=== PATIENT | female | born 1980 | race Caucasian/White ===

== ENCOUNTER 2017-10-01 | Emergency (ER) | payer SELFPAY ==
--- NOTE | 2017-10-01 13:07 | EDPHYS ---
Physician Documentation [facility] Name: Meghann Bob Age: 37 yrs Sex: Female : 1980 Arrival Date: 10/01/2017 Time: 11:22 Bed 26 Private MD: ED Physician Kvng Schwartz HPI: 10/01 15:56 This 37 yrs old Female presents to ER via Ambulatory with complaints of Sore snw Throat, Fever. 15:56 This 37 yrs old Female presents to ER via Ambulatory with complaints of Sore snw Throat, Fever. 15:56 The patient presents with sore throat. The patient describes throat pain as raw. Onset: snw The symptoms/episode began/occurred last night. Severity of symptoms: At their worst the symptoms were moderate. Modifying factors: The symptoms are alleviated by nothing. Associated signs and symptoms: Pertinent positives: cough, Sore throat. It is unknown whether or not the patient has had similar symptoms in the past. The patient has not recently seen a physician. 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 - Social history:: Smoking status: Patient/guardian denies using tobacco. ROS: 15:55 Constitutional: Negative for fever, chills, and weight loss, Eyes: Negative for injury, snw pain, redness, and discharge, Neck: Negative for injury, pain, and swelling, Cardiovascular: Negative for chest pain, palpitations, and edema, Respiratory: Negative for shortness of breath, wheezing, and pleuritic chest pain, + cough Abdomen/GI: Negative for abdominal pain, nausea, vomiting, diarrhea, and constipation, Back: Negative for injury and pain, : Negative for injury, bleeding, discharge, and swelling, MS/Extremity: Negative for injury and deformity, Skin: Negative for injury, rash, and discoloration, Neuro: Negative for headache, weakness, numbness, tingling, and seizure. 15:55 ENT: Positive for sore throat. Exam: 15:54 Constitutional: This is a well developed, well nourished patient who is awake, alert, snw and in no acute distress. Head/Face: Normocephalic, atraumatic. Eyes: Pupils equal round and reactive to light, extra-ocular motions intact. Lids and lashes normal. Conjunctiva and sclera are non-icteric and not injected. Cornea within normal limits. Periorbital areas with no swelling, redness, or edema. ENT: Nares patent. No nasal discharge, no septal abnormalities noted. Tympanic membranes are normal and external auditory canals are clear. Oropharynx with no redness, swelling, or masses, exudates, or evidence of obstruction, uvula midline. Mucous membranes moist. Neck: Trachea midline, no thyromegaly or masses palpated, and no cervical lymphadenopathy. Supple, full range of motion without nuchal rigidity, or vertebral point tenderness. No Meningismus. Chest/axilla: Normal chest wall appearance and motion. Nontender with no deformity. No lesions are appreciated. Cardiovascular: Regular rate and rhythm with a normal S1 and S2. No gallops, murmurs, or rubs. Normal PMI, no JVD. No pulse deficits. Respiratory: Lungs have equal breath sounds bilaterally, clear to auscultation and percussion. No rales, rhonchi or wheezes noted. No increased work of breathing, no retractions or nasal flaring. Occasional cough Abdomen/GI: Soft, non-tender, with normal bowel sounds. No distension or tympany. No guarding or rebound. No evidence of tenderness throughout. Back: No spinal tenderness. No costovertebral tenderness. Full range of motion. Skin: Warm, dry with normal turgor. Normal color with no rashes, no lesions, and no evidence of cellulitis. MS/ Extremity: Pulses equal, no cyanosis. Neurovascular intact. Full, normal range of motion. Neuro: Awake and alert, GCS 15, oriented to person, place, time, and situation. Cranial nerves II-XII grossly intact. Motor strength 5/5 in all extremities. Sensory grossly intact. Cerebellar exam normal. Normal gait. Vital Signs: 11:32 BP 130 / 92; Pulse 90; Resp 18; Temp 98.4(TE); Pulse Ox 100% on R/A; Weight 90.72 kg; hj Height 5 ft. 4 in. (162.56 cm); Pain 5/10; 13:10 BP 130 / 88; Pulse 87; Resp 17 S; Temp 98.4; Pulse Ox 99% on R/A; Pain 5/10; sg 11:32 Body Mass Index 34.33 (90.72 kg, 162.56 cm) MDM: 12:39 Patient medically screened. snw 15:58 Data reviewed: vital signs, nurses notes. Data interpreted: Pulse oximetry: on room air snw is 99 %. Interpretation: normal. Counseling: I had a detailed discussion with the patient and/or guardian regarding: the historical points, exam findings, and any diagnostic results supporting the discharge/admit diagnosis, the presence of at least one elevated blood pressure reading (>120/80) during this emergency department visit, to return to the emergency department if symptoms worsen or persist or if there are any questions or concerns that arise at home. Special discussion: I have referred the patient to see his PCP for further evaluation of high blood pressure. Based on the history and exam findings, there is no indication for further emergent testing or inpatient evaluation. I discussed with the patient/guardian the need to see the primary care provider for further evaluation of the symptoms. Administered Medications: No medications were administered Disposition: 10/01/17 13:06 Discharged to Home. Impression: Acute upper respiratory infection, unspecified. - Condition is Stable. - Discharge Instructions: Upper Respiratory Infection, Adult. - Prescriptions for Zyrtec 10 mg Oral Tablet - take 1 tablet by ORAL route once daily As needed; 20 tablet. - Medication Reconciliation Form, Thank You Letter, Antibiotic Education, Prescription Opioid Use form. - Follow up: Private Physician; When: 1 week; Reason: Recheck today's complaints, Continuance of care, Re-evaluation by your physician. Follow up: Emergency Department; When: As needed; Reason: Worsening of condition. Addendum: 10/04/2017 06:10 Co-signature as Attending Physician, Kvng Schwartz MD Available for consultation at p s1 all times. . Signatures: Bret Gaines RN Annelise Osborne, MONICO-C PERIODONTAL ASSISTANT-Csnw Bridget Pop RN RICKEY Vega Francois RN RN hj Singer, Phillip, MD MD ps1
--- NOTE | 2017-10-01 13:07 | ER ---
Nurse's Notes [facility] Name: Meghann Bob Age: 37 yrs Sex: Female : 1980 Arrival Date: 10/01/2017 Time: 11:22 Bed 26 Private MD: Diagnosis: Acute upper respiratory infection, unspecified Presentation: 10/01 11:30 Presenting complaint: Patient states: it started yesterday with sore throat and i hj started fever of 99.5 last night and today, i had a bad cough; and hard to swallow;. Transition of care: patient was not received from another setting of care. Onset of symptoms was October 01, 2017. Care prior to arrival: None. 11:30 Method Of Arrival: Ambulatory 11:30 Acuity: ANGELO 4 hj Triage Assessment: 11:31 General: Appears in no apparent distress. uncomfortable, Behavior is calm, cooperative, hj appropriate for age. Pain: Complains of pain in throat. EENT: Reports pain when swallowing. 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 - Social history:: Smoking status: Patient/guardian denies using tobacco. Screenin:20 Abuse screen: Denies threats or abuse. Denies injuries from another. Nutritional sg screening: No deficits noted. Tuberculosis screening: No symptoms or risk factors identified. Never had TB. Fall Risk None identified. No fall in past 12 months (0 pts). Assessment: 11:31 Respiratory: Airway is patent Respiratory effort is even, unlabored, Respiratory hj pattern is regular, symmetrical, Breath sounds are clear. EENT: Throat. 13:10 General: Appears in no apparent distress. comfortable, well groomed, well developed, sg well nourished, Behavior is calm, cooperative, appropriate for age. Pain: Complains of pain in sore throat. Neuro: Level of Consciousness is awake, alert, obeys commands, Oriented to person, place, time, Speech is normal, Facial symmetry appears normal. Cardiovascular: Heart tones S1 S2 present Capillary refill is brisk in bilateral fingers Patient's skin is warm and dry. Chest pain is denied. GI: No signs and/or symptoms were reported involving the gastrointestinal system. : No signs and/or symptoms were reported regarding the genitourinary system. Derm: Skin is pink, warm \T\ dry. Musculoskeletal: No signs and/or symptoms reported regarding the musculoskeletal system. Vital Signs: 11:32 BP 130 / 92; Pulse 90; Resp 18; Temp 98.4(TE); Pulse Ox 100% on R/A; Weight 90.72 kg; hj Height 5 ft. 4 in. (162.56 cm); Pain 5/10; 13:10 BP 130 / 88; Pulse 87; Resp 17 S; Temp 98.4; Pulse Ox 99% on R/A; Pain 5/10; sg 11:32 Body Mass Index 34.33 (90.72 kg, 162.56 cm) hj ED Course: 11:22 Patient arrived in ED. rg4 11:31 Triage completed. hj 11:31 Arm band placed on right wrist. hj 12:35 Annelise Wilson F[facility]-C [facility]. snw 12:35 Kvng Schwartz MD is Attending Physician. snw 13:20 Patient has correct armband on for positive identification. Bed in low position. Call sg light in reach. Pulse ox on. NIBP on. 13:20 No provider procedures requiring assistance completed. Patient did not have IV access sg during this emergency room visit. Administered Medications: No medications were administered Outcome: 13:06 Discharge ordered by . snw 13:10 Discharged to home ambulatory, with family. sg 13:10 Condition: good 13:10 Discharge instructions given to patient, Instructed on discharge instructions, follow up and referral plans. medication usage, safety practices, Demonstrated understanding of instructions, follow-up care, medications, Prescriptions given X 1. 13:20 Patient left the ED. iw Signatures: Bret Gaines RN RN Annelise Wilson FNP-C FNP-Bridget Rodriguez RN RN Vega Francois RN RN hj Garcia, Rubi rg4 Corrections: (The following items were deleted from the chart) 11:33 11:32 Pulse 90bpm; Resp 18bpm; Pulse Ox 100% RA; Temp 98.4F Temporal; 90.72 kg; Height hj 5 ft. 4 in.; BMI: 34.3; Pain 5/10; hj
== END 2017-10-01 13:20 | disposition home or self-care (01) ==
CPT/HCPCS: 99283

== ENCOUNTER 2017-10-09 14:38 | Emergency (ER) | payer SELFPAY ==
--- NOTE | 2017-10-09 15:38 | ER ---
Nurse's Notes [facility] Name: Meghann Bob Age: 37 yrs Sex: Female : 1980 Arrival Date: 10/09/2017 Time: 14:40 Bed DIS7 Private MD: Diagnosis: Acute upper respiratory infection, unspecified;Nasal congestion Presentation: 10/09 15:08 Presenting complaint: Patient states: Nasal congestion and decreased appetite since Friday. Transition of care: patient was not received from another setting of care. Onset of symptoms was October 04, 2017. Initial Sepsis Screen: Does the patient meet any 2 criteria? No. Patient's initial sepsis screen is negative. Does the patient have a suspected source of infection? No. Patient's initial sepsis screen is negative. Care prior to arrival: None. 15:08 Method Of Arrival: Ambulatory 15:08 Acuity: ANGELO 4 Triage Assessment: 15:09 General: Appears in no apparent distress. comfortable, Behavior is calm, cooperative, aj appropriate for age. Pain: Denies pain. EENT: Reports nasal congestion nasal discharge. Neuro: Level of Consciousness is awake, alert, obeys commands, Oriented to person, place, time, situation. Respiratory: Airway is patent Respiratory effort is even, unlabored, Respiratory pattern is regular, symmetrical, Breath sounds are clear. GI: Reports anorexia. Derm: Skin is intact, is healthy with good turgor, Skin is pink, warm \T\ dry. normal. 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 - Social history:: Smoking status: Patient/guardian denies using tobacco. Screenin:50 Abuse screen: Denies threats or abuse. Denies injuries from another. Nutritional sg screening: No deficits noted. Tuberculosis screening: No symptoms or risk factors identified. Never had TB. Fall Risk None identified. Assessment: 15:50 General: Appears in no apparent distress. comfortable, well groomed, well developed, sg well nourished, Behavior is calm, cooperative, appropriate for age. Pain: Complains of pain in chest, pain worsens with deep breathing Pain does not radiate. Quality of pain is described as dull. Neuro: Level of Consciousness is awake, alert, obeys commands, Oriented to person, place, time, situation, Sales Center Associate are equal bilaterally Moves all extremities. Full function Gait is steady, Speech is normal, Facial symmetry appears normal. Cardiovascular: Heart tones S1 S2 present Capillary refill is brisk in bilateral fingers Patient's skin is warm and dry. Chest pain is denied. Respiratory: Airway is patent Respiratory effort is even, unlabored, Respiratory pattern is regular, symmetrical, Breath sounds are clear. Respiratory: Reports pain with respiration chest congestion, non-productive cough. GI: No signs and/or symptoms were reported involving the gastrointestinal system. : No signs and/or symptoms were reported regarding the genitourinary system. EENT: Reports nasal discharge that is watery. Derm: Skin is pink, warm \T\ dry. Musculoskeletal: No signs and/or symptoms reported regarding the musculoskeletal system. Vital Signs: 15:09 BP 134 / 97; Pulse 95; Resp 17; Temp 97.8; Pulse Ox 97% on R/A; Weight 90.72 kg; Height aj 5 ft. 4 in. (162.56 cm); Pain 0/10; 16:00 BP 132 / 88; Pulse 90; Resp 17; Pulse Ox 97% on R/A; Pain 0/10; sg 15:09 Body Mass Index 34.33 (90.72 kg, 162.56 cm) ED Course: 14:40 Patient arrived in ED. as 15:09 Triage completed. aj 15:09 Arm band placed on right wrist. Patient placed in waiting room, Patient notified of wait time. 15:31 Annelise Wilson FNP-C [facility]. snw 15:31 Brandon Chen MD is Attending Physician. snw 15:38 Bret Gaines, RICKEY is Primary Nurse. sg 15:50 Patient has correct armband on for positive identification. Bed in low position. Call sg light in reach. Side rails up X2. Pulse ox on. NIBP on. Head of bed elevated. 15:50 No provider procedures requiring assistance completed. Patient did not have IV access sg during this emergency room visit. Administered Medications: No medications were administered Outcome: 15:38 Discharge ordered by . snw 16:03 Patient left the ED. ss 16:03 Discharged to home ambulatory, with family. 16:03 Condition: good 16:03 Discharge instructions given to patient, Instructed on discharge instructions, follow up and referral plans. medication usage, safety practices, Demonstrated understanding of instructions, follow-up care, medications, Prescriptions given X 2. Signatures: Bret Gaines RN Meliza Melvin RN RN aj Therrien, Shelly, SUPERVISOR EXTRUSION-C SUPERVISOR EXTRUSION-Abril Flores Shelby, RN RN
--- NOTE | 2017-10-09 15:38 | EDPHYS ---
Physician Documentation [facility] Name: Meghann Bob Age: 37 yrs Sex: Female : 1980 Arrival Date: 10/09/2017 Time: 14:40 Bed DIS7 Private MD: ED Physician Brandon Chen HPI: 10/09 17:27 This 37 yrs old Female presents to ER via Ambulatory with complaints of snw Congestion. 17:27 The patient or guardian reports nasal congestion. Onset: The symptoms/episode snw began/occurred acutely, gradually, 2 week(s) ago, and became persistent. Associated signs and symptoms: Pertinent positives: nausea. It is unknown whether or not the patient has had similar symptoms in the past. The patient has been recently seen at the [facility] Emergency Department, last week, for similar complaints. 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 - Social history:: Smoking status: Patient/guardian denies using tobacco. ROS: 17:24 Constitutional: Negative for fever, chills, and weight loss, Eyes: Negative for injury, snw pain, redness, and discharge, Neck: Negative for injury, pain, and swelling, Cardiovascular: Negative for chest pain, palpitations, and edema, Respiratory: Negative for shortness of breath, cough, wheezing, and pleuritic chest pain, Back: Negative for injury and pain, : Negative for injury, bleeding, discharge, and swelling, MS/Extremity: Negative for injury and deformity, Skin: Negative for injury, rash, and discoloration, Neuro: Negative for headache, weakness, numbness, tingling, and seizure. 17:24 Abdomen/GI: Positive for nausea and vomiting. Exam: 17:24 Constitutional: This is a well developed, well nourished patient who is awake, alert, snw and in no acute distress. Head/Face: Normocephalic, atraumatic. Eyes: Pupils equal round and reactive to light, extra-ocular motions intact. Lids and lashes normal. Conjunctiva and sclera are non-icteric and not injected. Cornea within normal limits. Periorbital areas with no swelling, redness, or edema. Neck: Trachea midline, no thyromegaly or masses palpated, and no cervical lymphadenopathy. Supple, full range of motion without nuchal rigidity, or vertebral point tenderness. No Meningismus. Chest/axilla: Normal chest wall appearance and motion. Nontender with no deformity. No lesions are appreciated. Cardiovascular: Regular rate and rhythm with a normal S1 and S2. No gallops, murmurs, or rubs. Normal PMI, no JVD. No pulse deficits. Respiratory: Lungs have equal breath sounds bilaterally, clear to auscultation and percussion. No rales, rhonchi or wheezes noted. No increased work of breathing, no retractions or nasal flaring. Abdomen/GI: Soft, non-tender, with normal bowel sounds. No distension or tympany. No guarding or rebound. No evidence of tenderness throughout. Back: No spinal tenderness. No costovertebral tenderness. Full range of motion. Skin: Warm, dry with normal turgor. Normal color with no rashes, no lesions, and no evidence of cellulitis. MS/ Extremity: Pulses equal, no cyanosis. Neurovascular intact. Full, normal range of motion. Neuro: Awake and alert, GCS 15, oriented to person, place, time, and situation. Cranial nerves II-XII grossly intact. Motor strength 5/5 in all extremities. Sensory grossly intact. Cerebellar exam normal. Normal gait. Psych: Awake, alert, with orientation to person, place and time. Behavior, mood, and affect are within normal limits. 17:24 ENT: External ear(s): are unremarkable, TM's: are normal, Nose: Nasal mucosa: edematous, Mouth: is normal, Dental exam: normal. Vital Signs: 15:09 BP 134 / 97; Pulse 95; Resp 17; Temp 97.8; Pulse Ox 97% on R/A; Weight 90.72 kg; Height aj 5 ft. 4 in. (162.56 cm); Pain 0/10; 16:00 BP 132 / 88; Pulse 90; Resp 17; Pulse Ox 97% on R/A; Pain 0/10; sg 15:09 Body Mass Index 34.33 (90.72 kg, 162.56 cm) aj MDM: 15:32 Patient medically screened. snw 17:27 Data reviewed: vital signs, nurses notes. Data interpreted: Pulse oximetry: on room air snw is 97 %. Interpretation: normal. Counseling: I had a detailed discussion with the patient and/or guardian regarding: the historical points, exam findings, and any diagnostic results supporting the discharge/admit diagnosis, the presence of at least one elevated blood pressure reading (>120/80) during this emergency department visit, the need for outpatient follow up, to return to the emergency department if symptoms worsen or persist or if there are any questions or concerns that arise at home. Special discussion: Based on the history and exam findings, there is no indication for further emergent testing or inpatient evaluation. I discussed with the patient/guardian the need to see the primary care provider for further evaluation of the symptoms. Administered Medications: No medications were administered Disposition: 10/09/17 15:38 Discharged to Home. Impression: Acute upper respiratory infection, unspecified, Nasal congestion. - Condition is Stable. - Discharge Instructions: Hay Fever, Hypertension, Upper Respiratory Infection, Adult, Cool Mist Vaporizers. - Prescriptions for Flonase Allergy Relief 50 mcg/actuation Nasal spray,suspension - inhale 1 spray by INTRANASAL route once daily; 1 Cartridge. Zyrtec 10 mg Oral Tablet - take 1 tablet by ORAL route once daily As needed; 20 tablet. - Medication Reconciliation Form, Thank You Letter, Antibiotic Education, Prescription Opioid Use, Work release form form. - Follow up: Private Physician; When: 1 - 2 days; Reason: Recheck today's complaints, Continuance of care, Re-evaluation by your physician. Follow up: Emergency Department; When: As needed; Reason: Worsening of condition. Addendum: 10/13/2017 12:38 Co-signature as Attending Physician, Brandon Chen MD. g s Signatures: Meliza Cade, RN RN Annelise Keith, WAISTLINE JOINER-C WAISTLINE JOINER-[place] Lorene Trammell RN RN ss Starr, Gregory, MD MD
[2017-10-09 16:11] VITALS: BP 134/97; TEMP 97.8; O2SAT 97
== END 2017-10-09 16:03 | disposition home or self-care (01) ==
LOC: ER 14:38
DX: J06.9 Acute upper respiratory infection, unspecified (principal); Z88.0 Allergy status to penicillin
CPT/HCPCS: 99283

== ENCOUNTER 2018-02-09 02:47 | Emergency (ER) | payer SELFPAY ==
[2018-02-09] MEDS ORDERED: MAGNE/ALUM HYDROXD 30 ML UCUP ONE (03:19)
[2018-02-09] MEDS ORDERED: LIDOCAINE VISCOUS 2% SOLN 15 ML UDC ONE (03:19)
[2018-02-09] MEDS ORDERED: SIMETHICONE 80 MG TAB ONE (03:23)
[2018-02-09 04:15] LABS: Absolute Lymphocytes (CBC) 2.6 K/uL (0.7-4.9); Absolute Monocytes 0.7 K/uL (0.1-1.3); Absolute Neutrophil 6.3 K/uL (1.8-8.0); Basophils % 0.2 % (0-1.3); Eosinophils % 1.9 % (0-4.4); Lymphocytes % 26.8 % (15.3-44.8); MCH 27.1 pg (27.0-35.0); MCV 82.8 fL (80-100); MPV 7.3 fL (7.6-11.3); RBC Red Blood Cell Count 4.71 M/uL (3.86-4.86)
[2018-02-09 04:38] LABS: Urine Bacteria <20 /HPF (<20); Urine Culture Reflex Order NOT NEEDED; Urine RBC NONE SEEN /HPF (NONE SEEN)
[2018-02-09 04:39] LABS: Urine Amorphous Sediment 4+ /HPF (NONE SEEN)
[2018-02-09 04:40] LABS: Albumin 3.7 g/dL (3.4-5.0); Bilirubin Direct 0.1 mg/dL (0-0.2); Bilirubin Total 0.2 mg/dL (0.2-1.0); Potassium 3.8 mmol/L (3.5-5.1); Protein, Total 7.4 g/dL (6.4-8.2)
[2018-02-09 05:21] LABS: Urine Blood NEGATIVE (NEG); Urine Glucose NEGATIVE (NEG); Urine Protein NEGATIVE (NEG)
--- NOTE | 2018-02-09 05:21 | EDPHYS ---
Physician Documentation [facility] Name: Meghann Bob Age: 37 yrs Sex: Female : 1980 Arrival Date: 02/09/2018 Time: 02:48 Bed 5 Private MD: ED Physician Soto Hutchinson HPI: 02/09 03:39 This 37 yrs old Female presents to ER via Ambulatory with complaints of rn States she has gas. 03:40 The patient presents with abdominal pain in the epigastric area. Onset: The rn symptoms/episode began/occurred 7 hour(s) ago. The symptoms do not radiate. Associated signs and symptoms: Pertinent negatives: nausea and vomiting, diarrhea, dysuria, fever, shortness of breath, vomiting, vomiting blood. The symptoms are described as burning, crampy. Modifying factors: The symptoms are alleviated by nothing, the symptoms are aggravated by nothing. Severity of pain: At its worst the pain was moderate in the emergency department the pain has improved. The patient has experienced similar episodes in the past. Reports symptoms in past when eating spicy foods, reports gets "gas pains", usually improved with maalox or tums, not today, present for 7 hours, similar to previous episodes, has been burping without alleviation of pain.. LEAD COOK: 03:02 LMP 02/06/2018 ao Historical: - Allergies: 03:02 PENICILLINS; ao - Home Meds: 03:02 None [Active]; ao - PMHx: 03:02 None; ao - PSHx: 03:02 Tubal ligation; ao - Immunization history:: Adult Immunizations up to date. - Social history:: Smoking status: Patient/guardian denies using tobacco, Patient/guardian denies using alcohol, street drugs. - Ebola Screening: : Patient negative for fever greater than or equal to 101.5 degrees Fahrenheit, and additional compatible Ebola Virus Disease symptoms Patient denies exposure to infectious person Patient denies travel to an Ebola-affected area in the 21 days before illness onset. - Family history:: not pertinent. - Hospitalizations: : No recent hospitalization is reported. ROS: 03:40 Constitutional: Negative for fever, chills, and weight loss, Eyes: Negative for injury, rn pain, redness, and discharge, Cardiovascular: Negative for chest pain, palpitations, and edema, Respiratory: Negative for shortness of breath, cough, wheezing, and pleuritic chest pain, Abdomen/GI: + abd pain, neg for nausea/vomiting/diarrhea Back: Negative for injury and pain, MS/Extremity: Negative for injury and deformity, Skin: Negative for injury, rash, and discoloration, Neuro: Negative for headache, weakness, numbness, tingling, and seizure. Exam: 03:40 Constitutional: This is a well developed, well nourished patient who is awake, alert, rn and in no acute distress. Eyes: Pupils equal round and reactive to light, extra-ocular motions intact. ENT: MMM Abdomen/GI: soft, + epigastric tenderness, mild, no RUQ tenderness, neg benson, no rebound Back: No spinal tenderness. No costovertebral tenderness. Full range of motion. Skin: Warm, dry with normal turgor. Normal color with no rashes, no lesions, and no evidence of cellulitis. MS/ Extremity: Pulses equal, no cyanosis. Neurovascular intact. Full, normal range of motion. Equal circumference. Neuro: Awake and alert, GCS 15, oriented to person, place, time, and situation. Cranial nerves II-XII grossly intact. Motor strength 5/5 in all extremities. Sensory grossly intact. Cerebellar exam normal. Normal gait. Vital Signs: 03:02 BP 144 / 92; Pulse 67; Resp 18; Temp 99.0(O); Pulse Ox 98% on R/A; Weight 89.81 kg (R); ao Height 5 ft. 4 in. (162.56 cm) (R); Pain 10/10; 04:29 BP 145 / 71; Pulse 56; Resp 16; Pulse Ox 99% ; ao 05:29 BP 125 / 84; Pulse 62; Resp 16; Pulse Ox 99% on R/A; ao 03:02 Body Mass Index 33.99 (89.81 kg, 162.56 cm) ao MDM: 02:54 Patient medically screened. rn 05:03 Differential diagnosis: cholecystitis, Cholelithiasis, gastritis, gastroesophageal rn reflux disease, non-specific abd pain, pancreatitis, Peptic Ulcer Disease. Data reviewed: vital signs, nurses notes, lab test result(s), and as a result, I will discharge patient. Counseling: I had a detailed discussion with the patient and/or guardian regarding: the historical points, exam findings, and any diagnostic results supporting the discharge/admit diagnosis, lab results, the need for outpatient follow up, to return to the emergency department if symptoms worsen or persist or if there are any questions or concerns that arise at home. 05:20 Response to treatment: the patient's symptoms have mildly improved after treatment, and rn as a result, I will discharge patient. Special discussion: Based on the patient's Hx, exam, and Dx evaluation, there is no indication for emergent surgery or inpatient Tx. It is understood by the patient/guardian that if the Sx's persist or worsen they need to return immediately for re-evaluation. I discussed with the patient/guardian in detail that at this point there is no indication for admission to the hospital. It is understood, however, that if the symptoms persist or worsen the patient needs to return immediately for re-evaluation. 02/09 03:40 Order name: Basic Metabolic Panel; Complete Time: 05:02 rn 02/09 03:40 Order name: CBC with Diff; Complete Time: 05:02 rn 02/09 03:40 Order name: Hepatic Function; Complete Time: 05:02 rn 02/09 03:40 Order name: Lipase; Complete Time: 05:02 rn 02/09 03:40 Order name: Urine Microscopic Only; Complete Time: 05:02 rn 02/09 04:02 Order name: Urine Dipstick--Ancillary (enter results); Complete Time: 05:22 mt 02/09 03:40 Order name: Urine Test (obtain specimen); Complete Time: 04:04 rn 02/09 03:40 Order name: IV Saline Lock; Complete Time: 04:04 rn 02/09 03:40 Order name: Labs collected and sent; Complete Time: 04:04 rn 02/09 03:40 Order name: Urine Dipstick-Ancillary (obtain specimen); Complete Time: 04:04 rn 02/09 04:02 Order name: Urine --Ancillary (enter results); Complete Time: 05:22 mt Administered Medications: 03:17 Drug: GI Cocktail without - (Maalox Suspension 30 ml, Lidocaine Liquid 2 % 15 ao ml) Route: PO; 04:00 Follow up: Response: No adverse reaction ao 03:36 Drug: Simethicone 80 mg Route: PO; ao 04:00 Follow up: Response: No adverse reaction ao Disposition: 02/09/18 05:21 Discharged to Home. Impression: Gas pain, Gastro-esophageal reflux disease, Upper abdominal pain, unspecified. - Condition is Stable. - Discharge Instructions: Abdominal Pain, Adult, Gastritis, Adult, Gastroesophageal Reflux Disease, Adult. - Medication Reconciliation Form, Thank You Letter, Antibiotic Education, Prescription Opioid Use form. - Follow up: Private Physician; When: As needed; Reason: Recheck today's complaints, Re-evaluation by your physician. - Problem is new. - Symptoms have improved. Signatures: Dispatcher [employer] EDMS Soto Hutchinson MD MD rn Prem Bueno RN RN ao Corrections: (The following items were deleted from the chart) 05:30 05:21 02/09/2018 05:21 Discharged to Home. Impression: Gas pain; Gastro-esophageal ao reflux disease; Upper abdominal pain, unspecified. Condition is Stable. Forms are Medication Reconciliation Form, Thank You Letter, Antibiotic Education, Prescription Opioid Use. Follow up: Private Physician; When: As needed; Reason: Recheck today's complaints, Re-evaluation by your physician. Problem is new. Symptoms have improved. rn
--- NOTE | 2018-02-09 05:21 | ER ---
Nurse's Notes [facility] Name: Meghann Bob Age: 37 yrs Sex: Female : 1980 Arrival Date: 02/09/2018 Time: 02:48 Bed 5 Private MD: Diagnosis: Gas pain;Gastro-esophageal reflux disease;Upper abdominal pain, unspecified Presentation: 02/09 03:00 Presenting complaint: Patient states: Eat spicy food and now has gas. Patient not able ao to pass gas, but reports burping. Patient reports pain level 10/10 in the epigastric area. Transition of care: patient was not received from another setting of care. Onset of symptoms is unknown. Risk Assessment: Do you want to hurt yourself or someone else? Patient reports no desire to harm self or others. Initial Sepsis Screen: Does the patient meet any 2 criteria? No. Patient's initial sepsis screen is negative. Does the patient have a suspected source of infection? No. Patient's initial sepsis screen is negative. Care prior to arrival: Medication(s) given: Tumbs. 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 - Social history:: Smoking status: Patient/guardian denies using tobacco, Patient/guardian denies using alcohol, street drugs. - Ebola Screening: : Patient negative for fever greater than or equal to 101.5 degrees Fahrenheit, and additional compatible Ebola Virus Disease symptoms Patient denies exposure to infectious person Patient denies travel to an Ebola-affected area in the 21 days before illness onset. - Family history:: not pertinent. - Hospitalizations: : No recent hospitalization is reported. Screenin:05 Abuse screen: Denies threats or abuse. Denies injuries from another. Nutritional ao screening: No deficits noted. Tuberculosis screening: No symptoms or risk factors identified. Fall Risk None identified. Assessment: 03:04 General: Appears in no apparent distress. uncomfortable, Behavior is calm, cooperative, ao appropriate for age. Pain: Complains of pain in epigastric area Pain does not radiate. Pain currently is 10 out of 10 on a pain scale. Neuro: Level of Consciousness is awake, alert, obeys commands, Oriented to person, place, time, situation, Appropriate for age Moves all extremities. Full function Speech is normal, Facial symmetry appears normal. Cardiovascular: Capillary refill < 3 seconds Patient's skin is warm and dry. Respiratory: Airway is patent Respiratory effort is even, unlabored, Respiratory pattern is regular, symmetrical. GI: Abdomen is non-distended. GI: Reports bloating, gaseousness, burping. : No signs and/or symptoms were reported regarding the genitourinary system. EENT: No signs and/or symptoms were reported regarding the EENT system. Derm: Skin is intact, Skin is pink, warm \T\ dry. normal, Skin temperature is warm. Musculoskeletal: Circulation, motion, and sensation intact. Range of motion: intact in all extremities. 04:29 Reassessment: Patient appears in no apparent distress at this time. Patient and/or ao family updated on plan of care and expected duration. Pain level reassessed. Patient is alert, oriented x 3, equal unlabored respirations, skin warm/dry/pink. Waiting on lab work. 05:29 Reassessment: Dc instructions given to patient. Patient agree with the POC and to ao follow up with PCP. No questiuons at this time. Vital Signs: 03:02 BP 144 / 92; Pulse 67; Resp 18; Temp 99.0(O); Pulse Ox 98% on R/A; Weight 89.81 kg (R); ao Height 5 ft. 4 in. (162.56 cm) (R); Pain 10/10; 04:29 BP 145 / 71; Pulse 56; Resp 16; Pulse Ox 99% ; ao 05:29 BP 125 / 84; Pulse 62; Resp 16; Pulse Ox 99% on R/A; ao 03:02 Body Mass Index 33.99 (89.81 kg, 162.56 cm) ao ED Course: 02:48 Patient arrived in ED. es 02:54 Soto Hutchinson MD is Attending Physician. rn 03:00 Prem Bueno RN is Primary Nurse. ao 03:02 Triage completed. ao 03:03 Arm band placed on right wrist. Patient placed in an exam room, on a stretcher, on ao pulse oximetry, Patient notified of wait time. 03:06 Patient has correct armband on for positive identification. Pulse ox on. NIBP on. ao 04:00 Initial lab(s) drawn, by me, sent to lab. Inserted saline lock: 22 gauge in right fc antecubital area, using aseptic technique. Blood collected. 05:28 No provider procedures requiring assistance completed. IV discontinued, intact, ao bleeding controlled, No redness/swelling at site. Pressure dressing applied. Administered Medications: 03:17 Drug: GI Cocktail without - (Maalox Suspension 30 ml, Lidocaine Liquid 2 % 15 ao ml) Route: PO; 04:00 Follow up: Response: No adverse reaction ao 03:36 Drug: Simethicone 80 mg Route: PO; ao 04:00 Follow up: Response: No adverse reaction ao Outcome: 05:21 Discharge ordered by . rn 05:28 Discharged to home ambulatory. ao 05:28 Condition: stable 05:28 Discharge instructions given to patient, Instructed on discharge instructions, follow up and referral plans. Demonstrated understanding of instructions, follow-up care, medications. 05:30 Patient left the ED. ao Signatures: Elisa Drew Felicia RN RICKEY Soto Hutchinson MD MD rn Ortiz, Alex, RN RN ao
[2018-02-09 05:40] VITALS: TEMP 99
[2018-02-09 05:41] VITALS: O2SAT 99
[2018-02-09 05:42] VITALS: BP 125/84
== END 2018-02-09 05:30 | disposition home or self-care (01) ==
LOC: ER 02:47
DX: R14.1 Gas pain (principal); K21.9 Gastro-esophageal reflux disease without esophagitis; Z88.0 Allergy status to penicillin
CPT/HCPCS: 36415; 80048; 80076; 81003; 81015; 81025; 83690; 85025; 99284

== ENCOUNTER 2018-04-30 09:56 | Emergency (ER) | payer SELFPAY ==
--- NOTE | 2018-04-30 11:19 | EDPHYS ---
Physician Documentation [facility] Name: Meghann Bob Age: 37 yrs Sex: Female : 1980 Arrival Date: 04/30/2018 Time: 09:57 Bed 15 Private MD: ED Physician Soto Hutchinson HPI: 04/30 11:15 This 37 yrs old Female presents to ER via Ambulatory with complaints of Sore rn Throat. 11:15 The patient presents with sore throat. The patient describes throat pain as raw. Onset: rn The symptoms/episode began/occurred yesterday. Severity of symptoms: At their worst the symptoms were mild, in the emergency department the symptoms are unchanged. The patient has not experienced similar symptoms in the past. The patient has not recently seen a physician. Reports cough congestion for 1 week, now with sore throat. + subjective fever. . Historical: - Allergies: 10:36 PENICILLINS; iw - Home Meds: 10:36 None [Active]; iw - PMHx: 10:36 None; iw - PSHx: 10:36 Tubal ligation; iw - Immunization history:: Adult Immunizations. - Social history:: Smoking status: . - Ebola Screening: : Patient negative for fever greater than or equal to 101.5 degrees Fahrenheit, and additional compatible Ebola Virus Disease symptoms Patient denies exposure to infectious person Patient denies travel to an Ebola-affected area in the 21 days before illness onset No symptoms or risks identified at this time. - Family history:: not pertinent. - Hospitalizations: : No recent hospitalization is reported. ROS: 11:15 Constitutional: + fever and chills Eyes: Negative for injury, pain, redness, and rn community health, ENT: + sore throat Neck: Negative for injury, pain, and swelling, Cardiovascular: Negative for chest pain, palpitations, and edema, Respiratory: Negative for shortness of breath, cough, wheezing, and pleuritic chest pain, Abdomen/GI: Negative for abdominal pain, nausea, vomiting, diarrhea, and constipation, MS/Extremity: Negative for injury and deformity, Skin: Negative for injury, rash, and discoloration, Neuro: Negative for headache, weakness, numbness, tingling, and seizure. Exam: 11:15 Constitutional: This is a well developed, well nourished patient who is awake, alert, rn and in no acute distress. ENT: + mild pharyngeal erythema, no exudate, no stridor Neck: + mild non-tender bilateral cervical LAD Vital Signs: 10:37 BP 146 / 93; Pulse 93; Resp 16; Temp 98.2; Pulse Ox 100% on R/A; iw 10:59 BP 127 / 86; Pulse 76; Resp 15; Temp 98.9; Pulse Ox 99% on R/A; Pain 5/10; ch 11:24 BP 117 / 68; Pulse 71; Resp 16; Temp 98.4; Pulse Ox 99% on R/A; Pain 4/10; ch MDM: 10:30 Patient medically screened. rn 11:15 Differential diagnosis: group A strep tonsillitis, influenza, pharyngitis. Data rn reviewed: vital signs, nurses notes, lab test result(s), and as a result, I will discharge patient. Counseling: I had a detailed discussion with the patient and/or guardian regarding: the historical points, exam findings, and any diagnostic results supporting the discharge/admit diagnosis, lab results, the need for outpatient follow up, to return to the emergency department if symptoms worsen or persist or if there are any questions or concerns that arise at home. Special discussion: I discussed with the patient/guardian in detail that at this point there is no indication for admission to the hospital. It is understood, however, that if the symptoms persist or worsen the patient needs to return immediately for re-evaluation. 04/30 10:37 Order name: Strep; Complete Time: 11:15 rn 04/30 10:37 Order name: Flu; Complete Time: 11:15 rn Administered Medications: No medications were administered Disposition: 04/30/18 11:18 Discharged to Home. Impression: Streptococcal pharyngitis. - Condition is Stable. - Discharge Instructions: Strep Throat. - Prescriptions for Zithromax Z- Ambrosio 250 mg Oral Tablet - take 1 tablet by ORAL route as directed for 5 days Day 1 - take two (2) tablets one time. Day 2, 3, 4 , 5 take one (1) tablet once daily.; 6 tablet. - Work release form, Medication Reconciliation Form, Thank You Letter, Antibiotic Education, Prescription Opioid Use form. - Follow up: Private Physician; When: As needed; Reason: Recheck today's complaints, Re-evaluation by your physician. - Problem is new. - Symptoms have improved. Signatures: Dispatcher [employer] Teressa Hoang RN RN Bridget Pop RN RN Soto Hutchinson MD MD unit manager rn: (The following items were deleted from the chart) 11:25 11:18 04/30/2018 11:18 Discharged to Home. Impression: Streptococcal pharyngitis. ch Condition is Stable. Forms are Medication Reconciliation Form, Thank You Letter, Antibiotic Education, Prescription Opioid Use. Follow up: Private Physician; When: As needed; Reason: Recheck today's complaints, Re-evaluation by your physician. Problem is new. Symptoms have improved. rn
--- NOTE | 2018-04-30 11:19 | ER ---
Nurse's Notes [facility] Name: Meghann Bob Age: 37 yrs Sex: Female : 1980 Arrival Date: 04/30/2018 Time: 09:57 Bed 15 Private MD: Diagnosis: Streptococcal pharyngitis Presentation: 04/30 10:34 Presenting complaint: Patient states: sore throat X 2 days, no fever, chills last iw night, has been fighting a cold. Transition of care: patient was not received from another setting of care. Onset of symptoms was April 28, 2018. Risk Assessment: Do you want to hurt yourself or someone else? Patient reports no desire to harm self or others. Initial Sepsis Screen: Does the patient meet any 2 criteria? No. Patient's initial sepsis screen is negative. Does the patient have a suspected source of infection? No. Patient's initial sepsis screen is negative. Care prior to arrival: None. 10:34 Method Of Arrival: Ambulatory iw 10:34 Acuity: ANGELO 4 iw Historical: - Allergies: 10:36 PENICILLINS; iw - Home Meds: 10:36 None [Active]; iw - PMHx: 10:36 None; iw - PSHx: 10:36 Tubal ligation; iw - Immunization history:: Adult Immunizations. - Social history:: Smoking status: . - Ebola Screening: : Patient negative for fever greater than or equal to 101.5 degrees Fahrenheit, and additional compatible Ebola Virus Disease symptoms Patient denies exposure to infectious person Patient denies travel to an Ebola-affected area in the 21 days before illness onset No symptoms or risks identified at this time. - Family history:: not pertinent. - Hospitalizations: : No recent hospitalization is reported. Screenin:59 Abuse screen: Denies threats or abuse. Denies injuries from another. Nutritional ch screening: No deficits noted. Tuberculosis screening: No symptoms or risk factors identified. Fall Risk None identified. Assessment: 10:59 General: Appears in no apparent distress. comfortable, Behavior is calm, cooperative, ch appropriate for age. Pain: Complains of pain in throat Pain currently is 6 out of 10 on a pain scale. Pain began 2-3 days ago. Neuro: No deficits noted. Respiratory: Airway is patent Trachea midline Respiratory effort is even, unlabored, Respiratory pattern is regular, Breath sounds are clear bilaterally. GI: No signs and/or symptoms were reported involving the gastrointestinal system. : No signs and/or symptoms were reported regarding the genitourinary system. EENT: Nares with drainage noted bilaterally Throat is reddened. Derm: Skin is pink, warm \T\ dry. 11:24 Reassessment: Patient appears in no apparent distress at this time. Patient and/or ch family updated on plan of care and expected duration. Pain level reassessed. Patient is alert, oriented x 3, equal unlabored respirations, skin warm/dry/pink. Patient states feeling better. Patient states symptoms have improved. Vital Signs: 10:37 BP 146 / 93; Pulse 93; Resp 16; Temp 98.2; Pulse Ox 100% on R/A; iw 10:59 BP 127 / 86; Pulse 76; Resp 15; Temp 98.9; Pulse Ox 99% on R/A; Pain 5/10; ch 11:24 BP 117 / 68; Pulse 71; Resp 16; Temp 98.4; Pulse Ox 99% on R/A; Pain 4/10; ch ED Course: 09:57 Patient arrived in ED. as 10:30 Soto Hutchinson MD is Attending Physician. rn 10:35 Triage completed. iw 10:37 Arm band placed on. iw 10:46 Flu and/or RSV swab sent to lab. Strep swab sent to lab. dh3 10:53 Teressa Mckeon, RN is Primary Nurse. ch 10:59 No apparent distress. Resting quietly. ch 10:59 Patient has correct armband on for positive identification. Placed in gown. Bed in low ch position. Call light in reach. Side rails up X 1. Adult w/ patient. Pulse ox on. NIBP on. Warm blanket given. 10:59 No provider procedures requiring assistance completed. Patient did not have IV access ch during this emergency room visit. Administered Medications: No medications were administered Outcome: 11:18 Discharge ordered by . rn 11:24 Discharged to home ambulatory. 11:24 Condition: stable 11:24 Discharge instructions given to patient, Instructed on discharge instructions, follow up and referral plans. medication usage, Demonstrated understanding of instructions, follow-up care, medications. 11:25 Patient left the ED. Signatures: Teressa Mckeon, RICKEY RN Albert, Abril as DonnBridget RN RN iw Nieto, Roman, MD MD rn Herrera, Michelle 3
[2018-04-30 11:32] VITALS: O2SAT 99
[2018-04-30 11:33] VITALS: BP 117/68; TEMP 98.4
== END 2018-04-30 11:25 | disposition home or self-care (01) ==
LOC: ER 09:56
DX: J02.0 Streptococcal pharyngitis (principal); Z88.0 Allergy status to penicillin
CPT/HCPCS: 87081; 87804; 99283

== ENCOUNTER 2018-08-05 22:00 | Emergency (ER) | payer SELFPAY ==
--- NOTE | 2018-08-05 22:55 | EDPHYS ---
Physician Documentation [facility] Name: Meghann oBb Age: 38 yrs Sex: Female : 1980 Arrival Date: 08/05/2018 Time: 22:22 Bed 19 Private MD: ED Physician Soto Hutchinson HPI: 08/05 22:49 This 38 yrs old Female presents to ER via Ambulatory with complaints of Cough.cp 22:49 The patient or guardian reports cough, that is intermittent, with no sputum. Onset: The cp symptoms/episode began/occurred 2 week(s) ago. Severity of symptoms: in the emergency department the symptoms are unchanged, despite home interventions. Associated signs and symptoms: Pertinent negatives: chest pain, diarrhea, fever, sore throat, vomiting, sinus pressure or sinus congestion. 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 - Social history:: Smoking status: Patient/guardian denies using tobacco. - Ebola Screening: : Patient negative for fever greater than or equal to 101.5 degrees Fahrenheit, and additional compatible Ebola Virus Disease symptoms. ROS: 22:50 Eyes: Negative for injury, pain, redness, and discharge. cp 22:50 Constitutional: Negative for body aches, chills, fever, poor PO intake. 22:50 ENT: Negative for drainage from ear(s), ear pain, sinus pain, sore throat, difficulty swallowing, difficulty handling secretions. 22:50 Neck: Negative for pain with movement, pain at rest, stiffness. 22:50 Cardiovascular: Negative for chest pain, palpitations. 22:50 Respiratory: Positive for cough, with no reported sputum. 22:50 Abdomen/GI: Negative for abdominal pain, nausea, vomiting, and diarrhea, constipation. 22:50 Back: Negative for pain at rest, pain with movement. 22:50 Skin: Negative for cellulitis, rash. 22:50 Neuro: Negative for altered mental status, headache. Exam: 22:51 Head/Face: Normocephalic, atraumatic. cp 22:51 Constitutional: The patient appears in no acute distress, alert, awake, non-toxic, well developed, well nourished. 22:51 Eyes: Periorbital structures: appear normal, Conjunctiva: normal, no exudate, no injection, Sclera: no appreciated abnormality, Lids and lashes: appear normal, bilaterally. 22:51 ENT: External ear(s): are unremarkable, Ear canal(s): are normal, clear, TM's: dullness, bilaterally, Nose: is normal, Mouth: Lips: moist, Oral mucosa: pink and intact, moist, Posterior pharynx: Airway: no evidence of obstruction, patent, Tonsils: are normal in appearance, swelling, is not appreciated, erythema, is not appreciated, exudate, is not appreciated. 22:51 Neck: ROM/movement: is normal, is supple, without pain, no range of motions limitations, no meningismus, Lymph nodes: no appreciated lymphadenopathy. 22:51 Chest/axilla: Inspection: normal, Palpation: is normal, no crepitus, no tenderness. 22:51 Cardiovascular: Rate: normal, Rhythm: regular. 22:51 Respiratory: the patient does not display signs of respiratory distress, Respirations: normal, no use of accessory muscles, no retractions, no splinting, no tachypnea, labored breathing, is not present, Breath sounds: decreased breath sounds, are not appreciated, rhonchi, are not appreciated, stridor, is not appreciated, wheezing: is not appreciated. 22:51 Abdomen/GI: Exam negative for discomfort, distension, guarding, Inspection: abdomen appears normal. 22:51 Skin: cellulitis, is not appreciated, no rash present. Vital Signs: 22:48 BP 129 / 87; Pulse 79; Resp 17 S; Temp 97.9(O); Pulse Ox 99% on R/A; Weight 90.72 kg jd3 (R); Height 5 ft. 4 in. (162.56 cm) (R); Pain 5/10; 22:48 Body Mass Index 34.33 (90.72 kg, 162.56 cm) jd3 MDM: 22:34 Patient medically screened. cp 22:53 Differential Diagnosis: Bronchitis Sinusitis Otitis Media Viral Syndrome Pneumonia. cp Data reviewed: vital signs, nurses notes, and as a result, I will discharge patient. Administered Medications: No medications were administered Disposition: 08/06 00:05 Co-signature as Attending Physician, Soto Hutchinson MD. rn Disposition: 08/05/18 22:55 Discharged to Home. Impression: Acute upper respiratory infection, unspecified. - Condition is Stable. - Discharge Instructions: Upper Respiratory Infection, Adult. - Prescriptions for Tessalon Perles 100 mg Oral Capsule - take 2 capsule by ORAL route every 8 hours As needed; 30 capsule. Zithromax Z- Ambrosio 250 mg Oral Tablet - take 1 tablet by ORAL route as directed for 5 days Day 1 - take two (2) tablets one time. Day 2, 3, 4 , 5 take one (1) tablet once daily.; 6 tablet. - Medication Reconciliation Form, Thank You Letter, Antibiotic Education, Prescription Opioid Use form. - Follow up: Private Physician; When: 2 - 3 days; Reason: Worsening of condition. - Problem is new. - Symptoms are unchanged. Signatures: Soto Hutchinson MD MD rn Dread Mtz PA PA cp Davies, Jonathon RN RN jd3 Corrections: (The following items were deleted from the chart) 08/05 23:02 22:55 08/05/2018 22:55 Discharged to Home. Impression: Acute upper respiratory jd3 infection, unspecified. Condition is Stable. Forms are Medication Reconciliation Form, Thank You Letter, Antibiotic Education, Prescription Opioid Use. Follow up: Private Physician; When: 2 - 3 days; Reason: Worsening of condition. Problem is new. Symptoms are unchanged. cp
--- NOTE | 2018-08-05 22:55 | ER ---
Nurse's Notes [facility] Name: Meghann Bob Age: 38 yrs Sex: Female : 1980 Arrival Date: 08/05/2018 Time: 22:22 Bed 19 Private MD: Diagnosis: Acute upper respiratory infection, unspecified Presentation: 08/05 22:43 Presenting complaint: Patient states: "I have had a bad cough for 2 weeks. it started jd3 like the flu, but that's gone and its just the cough that won't go away.". Transition of care: patient was not received from another setting of care. Onset of symptoms was July 29, 2018. Risk Assessment: Do you want to hurt yourself or someone else? Patient reports no desire to harm self or others. Initial Sepsis Screen: Does the patient meet any 2 criteria? No. Patient's initial sepsis screen is negative. Does the patient have a suspected source of infection? No. Patient's initial sepsis screen is negative. Care prior to arrival: None. 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 - Social history:: Smoking status: Patient/guardian denies using tobacco. - Ebola Screening: : Patient negative for fever greater than or equal to 101.5 degrees Fahrenheit, and additional compatible Ebola Virus Disease symptoms. Screenin:51 Abuse screen: Denies threats or abuse. Nutritional screening: No deficits noted. jd3 Tuberculosis screening: No symptoms or risk factors identified. Fall Risk Ambulatory Aid- None/Bed Rest/Nurse Assist (0 pts). Gait- Normal/Bed Rest/Wheelchair (0 pts) Mental Status- Oriented to own ability (0 pts). Total Murphy Fall Scale indicates No Risk (0-24 pts). Assessment: 22:49 General: Appears in no apparent distress. uncomfortable, Behavior is calm, cooperative, jd3 appropriate for age. Pain: Complains of pain in throat Quality of pain is described as aching. Neuro: Level of Consciousness is awake, alert, obeys commands, Oriented to person, place, time, situation. Cardiovascular: Capillary refill < 3 seconds Patient's skin is warm and dry. Respiratory: Reports cough that is dry, Airway is patent Respiratory effort is even, unlabored, Respiratory pattern is regular, symmetrical, Breath sounds are clear bilaterally. GI: No signs and/or symptoms were reported involving the gastrointestinal system. : No signs and/or symptoms were reported regarding the genitourinary system. EENT: No signs and/or symptoms were reported regarding the EENT system. Derm: Skin is intact, Skin is dry, Skin is normal, Skin temperature is warm. Musculoskeletal: Circulation, motion, and sensation intact. Range of motion: intact in all extremities. Vital Signs: 22:48 BP 129 / 87; Pulse 79; Resp 17 S; Temp 97.9(O); Pulse Ox 99% on R/A; Weight 90.72 kg jd3 (R); Height 5 ft. 4 in. (162.56 cm) (R); Pain 5/10; 22:48 Body Mass Index 34.33 (90.72 kg, 162.56 cm) jd3 ED Course: 22:22 Patient arrived in ED. ag3 22:34 Dread M[facility]. cp 22:34 Soto Hutchinson MD is Attending Physician. ivan 22:43 Merlin Fernandez, RICKEY is Primary Nurse. jd3 22:44 Triage completed. jd3 22:49 Arm band placed on. jd3 22:51 Patient has correct armband on for positive identification. Bed in low position. Call jd3 light in reach. Side rails up X 1. Adult w/ patient. 23:01 No provider procedures requiring assistance completed. Patient did not have IV access jd3 during this emergency room visit. Administered Medications: No medications were administered Outcome: 22:55 Discharge ordered by . cp 23:02 Discharged to home ambulatory, with family. jd3 23:02 Condition: stable 23:02 Discharge instructions given to patient, family, Instructed on discharge instructions, follow up and referral plans. medication usage, Demonstrated understanding of instructions, follow-up care, medications, Prescriptions given X 2. 23:02 Patient left the ED. jd3 Signatures: Dread Mtz PA PA cp Davies, Jonathon, RN RN jd3 Becka Kearney ag3
[2018-08-05 23:11] VITALS: BP 129/87; TEMP 97.9; O2SAT 99
== END 2018-08-05 23:02 | disposition home or self-care (01) ==
LOC: ER 22:00
DX: J06.9 Acute upper respiratory infection, unspecified (principal); Z88.0 Allergy status to penicillin
CPT/HCPCS: 99282

== ENCOUNTER 2018-09-16 17:46 | Emergency (ER) | payer SELFPAY ==
[2018-09-16 23:20] LABS: Urine Blood NEGATIVE (NEG); Urine Glucose NEGATIVE (NEG); Urine Protein 1+ (NEG); Urine Specific Gravity >1.030 (1.005-1.030); Urine pH 5.5 (5.0-7.0)
[2018-09-16 23:28] LABS: Absolute Lymphocytes (CBC) 2.5 K/uL (0.7-4.9); Absolute Monocytes 0.8 K/uL (0.1-1.3); Absolute Neutrophil 1.9 K/uL (1.8-8.0); Basophils % 0.4 % (0-1.3); Eosinophils % 8.2 % (0-4.4); Hematocrit 35.5 % (36.0-45.0); Lymphocytes % 43.8 % (15.3-44.8); MPV 7.3 fL (7.6-11.3); Monocytes % 13.6 % (3.3-12.3); RBC Red Blood Cell Count 4.55 M/uL (3.86-4.86)
[2018-09-16] MEDS ORDERED: FAMOTIDINE 20 MG/2 ML VIAL IV ONE (23:31)
[2018-09-16] MEDS ORDERED: ONDANSETRON 4 MG/2 ML VIAL ONE (23:31)
[2018-09-16 23:53] LABS: ALT/SGPT 57 U/L (12-78); AST/SGOT 45 U/L (15-37); Albumin 3.7 g/dL (3.4-5.0); Alkaline Phosphatase 52 U/L (45-117); BUN Blood Urea Nitrogen 16 mg/dL (7-18); Bicarbonate 28 mmol/L (21-32); Bilirubin Direct 0.1 mg/dL (0-0.2); Bilirubin Total 0.2 mg/dL (0.2-1.0); Glucose Level 94 mg/dL (74-106); Lipase 97 U/L (73-393); Potassium 3.4 mmol/L (3.5-5.1); Protein, Total 7.6 g/dL (6.4-8.2); Sodium Level 142 mmol/L (136-145)
--- NOTE | 2018-09-17 02:27 | EDPHYS ---
Physician Documentation [facility] Name: Meghann Bob Age: 38 yrs Sex: Female : 1980 Arrival Date: 09/16/2018 Time: 18:02 Bed 19 Private MD: None, None ED Physician New Cooper HPI: 09/16 23:00 This 38 yrs old Female presents to ER via Ambulatory with complaints of cp Fever, Diarrhea. 23:00 The patient presents with abdominal pain general. cp 23:00 Onset: The symptoms/episode began/occurred 3 day(s) ago. The patient reports fever, low cp grade. Onset: The symptoms/episode began/occurred today. Associated signs and symptoms: Pertinent positives: diarrhea. 23:00 Patient reports she ate sausage and gravy on Friday and later that day started feeling cp sick to her stomach. 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 - Social history:: Smoking status: Patient/guardian denies using tobacco. - Ebola Screening: : No symptoms or risks identified at this time. ROS: 23:10 Constitutional: Negative for body aches, chills, fever, poor PO intake. cp 23:10 Eyes: Negative for injury, pain, redness, and discharge. cp 23:10 ENT: Negative for drainage from ear(s), ear pain, sore throat, difficulty swallowing, difficulty handling secretions. 23:10 Cardiovascular: Negative for chest pain, edema, palpitations. 23:10 Respiratory: Negative for cough, shortness of breath, wheezing. 23:10 Abdomen/GI: Positive for abdominal pain, nausea, diarrhea, Negative for vomiting, constipation, anorexia, black/tarry stool, rectal bleeding. 23:10 Back: Negative for pain at rest, pain with movement, radiated pain. 23:10 : Negative for urinary symptoms. 23:10 Neuro: Negative for dizziness, headache, weakness. 23:10 All other systems are negative. Exam: 23:15 Constitutional: The patient appears in no acute distress, alert, awake, non-toxic, well cp developed, well nourished. 23:15 Head/Face: Normocephalic, atraumatic. cp 23:15 Eyes: Periorbital structures: appear normal, Conjunctiva: normal, no exudate, no injection, Sclera: no appreciated abnormality, Lids and lashes: appear normal, bilaterally. 23:15 ENT: External ear(s): are unremarkable, Nose: is normal, Mouth: is normal, Posterior pharynx: is normal. 23:15 Chest/axilla: Inspection: normal, Palpation: is normal, no crepitus, no tenderness. 23:15 Cardiovascular: Rate: normal, Rhythm: regular. 23:15 Respiratory: the patient does not display signs of respiratory distress, Respirations: normal, no use of accessory muscles, no retractions, no splinting, no tachypnea, Breath sounds: are clear throughout, no decreased breath sounds, no stridor, no wheezing. 23:15 Abdomen/GI: Inspection: abdomen appears normal, Bowel sounds: active, all quadrants, Palpation: soft, in all quadrants, moderate abdominal tenderness, in the mid and lower abdomen, voluntary guarding. 23:15 Back: CVA tenderness, is absent. 23:15 Skin: no rash present. Vital Signs: 18:37 BP 139 / 105; Pulse 77; Resp 16 S; Temp 97.5(TE); Pulse Ox 100% on R/A; Weight 90.72 kg aa5 (R); Height 5 ft. 4 in. (162.56 cm) (R); Pain 0/10; 22:56 BP 127 / 85; Pulse 68; Resp 17; Temp 97.2(O); Pulse Ox 100% on R/A; Pain 5/10; ed1 04 00:29 BP 115 / 85; Pulse 66; Resp 18; Pulse Ox 100% on R/A; Pain 0/10; ed1 02:37 BP 113 / 72; Pulse 69; Resp 17; Temp 97.2(O); Pulse Ox 99% on R/A; Pain 0/10; ed1 03 18:37 Body Mass Index 34.33 (90.72 kg, 162.56 cm) aa5 MDM: 09/16 22:50 Patient medically screened. cp 09/17 00:00 Differential diagnosis: gastroenteritis, diverticulitis, gastritis, pancreatitis. cp 02:25 Data reviewed: vital signs, nurses notes, lab test result(s), radiologic studies, CT cp scan. 02:25 Response to treatment: the patient's symptoms have markedly improved after treatment. cp Special discussion: Based on the patient's Hx, exam, and Dx evaluation, there is no indication for emergent surgery or inpatient Tx. It is understood by the patient/guardian that if the Sx's persist or worsen they need to return immediately for re-evaluation. ED course: VSS. CT abdomen negative for acute findings. Will discharge to home for continued monitoring. 09/16 22:57 Order name: Urine Dipstick--Ancillary (enter results); Complete Time: 23:52 ar5 09/16 22:57 Order name: Urine --Ancillary (enter results); Complete Time: 23:52 ar5 09/16 22:58 Order name: Basic Metabolic Panel; Complete Time: 00:16 cp 09/17 00:16 Interpretation: Normal except: K 3.4. cp 09/16 22:58 Order name: CBC with Diff; Complete Time: 23:52 cp 09/16 23:52 Interpretation: Normal except: HGB 11.4; HCT 35.5; MCV 78.1; MCH 25.0; RDW 15.5; MPV cp 7.3; ALTHEA% 34.0; MN% 13.6; EOSINOPHIL % 8.2. 09/16 22:58 Order name: Creatinine for Radiology; Complete Time: 00:16 cp 09/16 22:58 Order name: Hepatic Function; Complete Time: 00:16 cp 09/17 00:16 Interpretation: Normal except: AST 45; GLOB 3.9; A/G 0.9. cp 09/16 22:58 Order name: Lipase; Complete Time: 00:16 cp 09/16 22:58 Order name: IV Saline Lock; Complete Time: 23:17 cp 09/17 00:19 Order name: CT Abd/Pelvis - W/Contrast: no oral contrast; Complete Time: 00:37 cp 09/16 22:58 Order name: Labs collected and sent; Complete Time: 23:17 cp Administered Medications: 09/16 23:25 Drug: Zofran 4 mg Route: IVP; Site: right antecubital; ed1 09/17 00:28 Follow up: Response: No adverse reaction; Nausea is decreased ed1 09/16 23:27 Drug: Pepcid 20 mg Route: IVP; Site: right antecubital; ed1 09/17 00:29 Follow up: Response: No adverse reaction; Pain is decreased ed1 02:36 Drug: Potassium Effervescent Tablet 25 mEq Route: PO; ed1 02:37 Follow up: Response: Medication administered at discharge. ed1 02:37 Drug: Bentyl 20 mg Route: PO; ed1 02:37 Follow up: Response: Medication administered at discharge. ed1 Disposition: 09/17/18 02:27 Discharged to Home. Impression: Diarrhea, unspecified. - Condition is Stable. - Discharge Instructions: Food Choices to Help Relieve Diarrhea, Adult, Diarrhea, Adult. - Prescriptions for Bentyl 20 mg Oral Tablet - take 1 tablet by ORAL route every 6 hours As needed; 20 tablet. Zofran 4 mg Oral Tablet - take 1 tablet by ORAL route every 12 hours As needed; 20 tablet. - Medication Reconciliation Form, Thank You Letter, Antibiotic Education, Prescription Opioid Use form. - Follow up: Private Physician; When: 2 - 3 days; Reason: Worsening of condition. - Problem is new. - Symptoms have improved. Addendum: 09/18/2018 11:41 Co-signature as Attending Physician, New Cooper MD I agree with the assessment and w a plan of care. Signatures: Dispatcher [employer] EDVeronica Acosta, RN RN aa5 Sariah Pandey RN RN ed1 Dread Mtz PA PA New Avila MD MD mt Corrections: (The following items were deleted from the chart) 09/17 02:39 02:27 09/17/2018 02:27 Discharged to Home. Impression: Diarrhea, unspecified. Condition ed1 is Stable. Forms are Medication Reconciliation Form, Thank You Letter, Antibiotic Education, Prescription Opioid Use. Follow up: Private Physician; When: 2 - 3 days; Reason: Worsening of condition. Problem is new. Symptoms have improved. cp
--- NOTE | 2018-09-17 02:27 | ER ---
Nurse's Notes [facility] Name: Meghann Bob Age: 38 yrs Sex: Female : 1980 Arrival Date: 09/16/2018 Time: 18:02 Bed 19 Private MD: None, None Diagnosis: Diarrhea, unspecified Presentation: 09/16 18:35 Presenting complaint: Patient states: "I ate a sausage and gravy on Friday and after aa5 that I started feeling sick then but now I have been running a low grade fever of 99.4 and diarrhea since yesterday". Pt reports nausea, denies vomiting. Transition of care: patient was not received from another setting of care. Onset of symptoms was August 2018. Risk Assessment: Do you want to hurt yourself or someone else? Patient reports no desire to harm self or others. Initial Sepsis Screen: Does the patient meet any 2 criteria? No. Patient's initial sepsis screen is negative. Does the patient have a suspected source of infection? No. Patient's initial sepsis screen is negative. Care prior to arrival: None. 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 - Social history:: Smoking status: Patient/guardian denies using tobacco. - Ebola Screening: : No symptoms or risks identified at this time. Screenin:56 Abuse screen: Denies threats or abuse. Denies injuries from another. Nutritional ed1 screening: No deficits noted. Tuberculosis screening: No symptoms or risk factors identified. Fall Risk None identified. Assessment: 22:56 General: Appears in no apparent distress. Behavior is calm, cooperative. Pain: ed1 Complains of pain in abdomen Pain does not radiate. Pain currently is 5 out of 10 on a pain scale. Quality of pain is described as aching, Pain began 2-3 days ago. Is continuous. Neuro: Level of Consciousness is awake, alert, obeys commands, Oriented to person, place, time, situation. Cardiovascular: Denies chest pain, Heart tones S1 S2 present. Respiratory: Airway is patent Respiratory effort is even, unlabored, Respiratory pattern is regular, symmetrical, Breath sounds are clear bilaterally. GI: Abdomen is non-distended, Bowel sounds present X 4 quads. hyperactive in right upper quadrant and left upper quadrant Abd is soft and non tender X 4 quads. Reports upper abdominal pain, diarrhea, Patient currently denies vomiting. : No signs and/or symptoms were reported regarding the genitourinary system. EENT: Oral mucosa is moist. Derm: Skin is intact, is healthy with good turgor, Skin is dry, Skin is normal, Skin temperature is warm. Musculoskeletal: Circulation, motion, and sensation intact. Range of motion: intact in all extremities. 09/17 00:29 Reassessment: Patient appears in no apparent distress at this time. Patient and/or ed1 family updated on plan of care and expected duration. Pain level reassessed. Patient is alert, oriented x 3, equal unlabored respirations, skin warm/dry/pink. Patient states feeling better. Patient states symptoms have improved. 02:37 Reassessment: Patient appears in no apparent distress at this time. Patient and/or ed1 family updated on plan of care and expected duration. Pain level reassessed. Patient is alert, oriented x 3, equal unlabored respirations, skin warm/dry/pink. Patient denies pain at this time. Patient states feeling better. Patient states symptoms have improved. Vital Signs: 09/16 18:37 BP 139 / 105; Pulse 77; Resp 16 S; Temp 97.5(TE); Pulse Ox 100% on R/A; Weight 90.72 kg aa5 (R); Height 5 ft. 4 in. (162.56 cm) (R); Pain 0/10; 22:56 BP 127 / 85; Pulse 68; Resp 17; Temp 97.2(O); Pulse Ox 100% on R/A; Pain 5/10; ed1 09/17 00:29 BP 115 / 85; Pulse 66; Resp 18; Pulse Ox 100% on R/A; Pain 0/10; ed1 02:37 BP 113 / 72; Pulse 69; Resp 17; Temp 97.2(O); Pulse Ox 99% on R/A; Pain 0/10; ed1 09/16 18:37 Body Mass Index 34.33 (90.72 kg, 162.56 cm) aa5 ED Course: 0403 18:02 Patient arrived in ED. mr 18:02 None, None is Private Physician. mr 18:35 Arm band placed on. aa5 18:36 Triage completed. aa5 22:44 Sariah Pandey, RN is Primary Nurse. ed1 22:46 Dread Mtz PA is PHCP. cp 22:47 New Cooper MD is Attending Physician. cp 22:56 Patient has correct armband on for positive identification. Placed in gown. Bed in low ed1 position. Call light in reach. Pulse ox on. NIBP on. 22:56 Urine collected: clean catch specimen, wolf colored. ed1 23:18 Initial lab(s) drawn, by me, sent to lab. Inserted saline lock: 20 gauge in right ed1 antecubital area, using aseptic technique. Blood collected. 04/04 00:[address] Scan. ed1 01:10 CT completed. Patient tolerated procedure well. Patient moved to CT via wheelchair. Patient moved back from CT. 01:21 CT Abd/Pelvis - W/Contrast: no oral contrast In Process Unspecified. EDMS 02:37 No provider procedures requiring assistance completed. IV discontinued, intact, ed1 bleeding controlled, No redness/swelling at site. Pressure dressing applied. Administered Medications: 04/03 23:25 Drug: Zofran 4 mg Route: IVP; Site: right antecubital; ed1 04/04 00:28 Follow up: Response: No adverse reaction; Nausea is decreased ed1 04/03 23:27 Drug: Pepcid 20 mg Route: IVP; Site: right antecubital; ed1 04/04 00:29 Follow up: Response: No adverse reaction; Pain is decreased ed1 02:36 Drug: Potassium Effervescent Tablet 25 mEq Route: PO; ed1 02:37 Follow up: Response: Medication administered at discharge. ed1 02:37 Drug: Bentyl 20 mg Route: PO; ed1 02:37 Follow up: Response: Medication administered at discharge. ed1 Outcome: 02:27 Discharge ordered by . cp 02:37 Discharged to home ambulatory. ed1 02:37 Condition: good 02:37 Discharge instructions given to patient, Instructed on discharge instructions, follow up and referral plans. medication usage, Demonstrated understanding of instructions, follow-up care, medications, Prescriptions given X 2. 02:39 Patient left the ED. ed1 Signatures: Dispatcher [employer] EDOH Dunia Guillaume mr Ibarra, Veronica Sanderson, RN RN aa5 Sariah Pandey RN RN ed1 Dread Mtz PA PA cp
[2018-09-17] MEDS ORDERED: POTASSIUM 25 MEQ EFFERV TAB ONE (02:42)
[2018-09-17] MEDS ORDERED: DICYCLOMINE HCL 10 MG CAP ONE (02:42)
[2018-09-17 02:58] VITALS: TEMP 97.2
[2018-09-17 03:01] VITALS: BP 113/72; O2SAT 99
--- NOTE | 2018-09-17 11:01 | RAD REPORT ---
EXAM DESCRIPTION: CT - Abdomen Pelvis W Contrast - 09/17/2018 5:34 am CLINICAL HISTORY: The patient is 38 years old and is Female; ABD PAIN TECHNIQUE: Axial computed tomography images of the abdomen and pelvis with intravenous contrast. S agittal and coronal reformatted images were created and reviewed. This CT exam was performed using one or more of the following dose reduction techniques: automated exposure control, adjustment of t he mA and/or kV according to patient size, and/or use of iterative reconstruction technique. COMPARISON: None. FINDINGS: LUNG BASES: Unremarkable. No mass. No consolidation. ABDOMEN: LIVER: Diffuse hepatic steatosis. GALLBLADDER AND BILE DUCTS: Unremarkable. No calcified stones. No ductal dilation. PANCREAS: Unremarkable. No mass. No ductal dilation. SPLEEN: Unremarkable. No splenomegaly. ADRENALS: Unremarkable. No mass. KIDNEYS AND URETERS: Subcentimeter left renal cyst. No hydronephrosis. STOMACH AND BOWEL: Radiopaque punctate foci are seen in the large bowel, likely retained contrast No mucosal thickening. PELVIS: APPENDIX: The appendix is seen and is within normal limits. BLADDER: Unremarkable. No mass. REPRODUCTIVE: Heterogenous enlargement of the uterus with posterior uterine body fibroid. Small am ount of endometrial fluid. 2.1 cm right ovarian cyst. ABDOMEN and PELVIS: INTRAPERITONEAL SPACE: Unremarkable. No free air. No significant fluid collection. BONES/JOINTS: No acute fracture. No dislocation. SOFT TISSUES: Unremarkable. VASCULATURE: Unremarkable. No abdominal aortic aneurysm. LYMPH NODES: Multiple prominent mesenteric lymph node in the left upper and mid abdomen fibroid in the posterior body. Surrounding fat stranding. IMPRESSION: 1. Multiple prominent mesenteric lymph node in the left upper and mid abdomen fibroid in the posterior body. Surrounding fat stranding. Finding could be reactive to enteritis, secondary to mesenteric adenitis or panniculitis/sclerosing mesenteritis. 2. Fibroid uterus with endometrial fluid and 2.1 cm right ovarian cyst. No follow-up imaging is rec ommended. Reference: US recommendations based on Radiology 2010 Sep;256(3):943-54; CT/MR recommendations based on J Am Kimberly Radiol 2013;10:675-681. 3. Diffuse hepatic steatosis. 4. Subcentimeter left renal cyst. Electronically signed by: Darrian Jiménez DO 09/17/2018 1:31 AM CDT Due to temporary technical issues with the PACS/Fluency reporting system, reports are being signed by the in house radiologist as a courtesy to ensure prompt reporting. The interpreting radiologist is f ully responsible for the content of the report.
== END 2018-09-17 02:39 | disposition home or self-care (01) ==
LOC: ER 17:46
DX: R19.7 Diarrhea, unspecified (principal); Z88.0 Allergy status to penicillin
CPT/HCPCS: 36415; 74177; 80048; 80076; 81003; 81025; 83690; 85025; 96374; 96375; 99284; J2405; Q9967

== ENCOUNTER 2019-01-11 20:11 | Emergency (ER) | payer SELFPAY ==
[2019-01-11] MEDS ORDERED: ACETAMINOPHEN 325 MG TABLET ONE (21:31)
[2019-01-11] MEDS ORDERED: IBUPROFEN 400 MG TAB ONE (21:31)
--- NOTE | 2019-01-11 21:53 | RAD REPORT ---
EXAM DESCRIPTION: RAD - Ankle Left 3 View - 01/11/2019 9:14 pm CLINICAL HISTORY: Pain;Swelling COMPARISON: No comparisons FINDINGS: Soft tissue swelling is seen about the ankle. Tiny avulsion fracture is suspected involvin g the distal lateral malleolus. Prominent calcaneal spurs seen.
--- NOTE | 2019-01-11 22:16 | EDPHYS ---
Physician Documentation [facility] Name: Meghann Bob Age: 38 yrs Sex: Female : 1980 Arrival Date: 01/11/2019 Time: 20:14 Bed 16 Private MD: ED Physician Richie Brown HPI: 01/11 21:05 This 38 yrs old Female presents to ER via Wheelchair with complaints of Ankle cp Injury. 21:05 The patient presents with an injury, pain, that is acute, swelling, tenderness. The cp complaints affect the left ankle. 21:05 Onset: The symptoms/episode began/occurred just prior to arrival. Context: resulted cp from a mis-step by the patient, stairs, The mechanism of injury involved inversion of the affected ankle. must have assistance. Associated signs and symptoms: Pertinent negatives: calf tenderness, numbness. Modifying factors: the symptoms are aggravated by movement. 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 - Social history:: Smoking status: Patient/guardian denies using tobacco. - Ebola Screening: : No symptoms or risks identified at this time. ROS: 21:10 Constitutional: Negative for body aches, chills, fever, poor PO intake. cp 21:10 Eyes: Negative for injury, pain, redness, and discharge. cp 21:10 ENT: Negative for drainage from ear(s), ear pain, sore throat, difficulty swallowing, difficulty handling secretions. 21:10 Respiratory: Negative for cough, shortness of breath, wheezing. 21:10 Abdomen/GI: Negative for abdominal pain, nausea, vomiting, and diarrhea. 21:10 MS/extremity: Positive for pain, swelling, tenderness, of the left ankle, Negative for decreased range of motion, deformity, paresthesias. 21:10 All other systems are negative. Exam: 21:20 Constitutional: The patient appears in no acute distress, alert, awake, well developed, cp well nourished. 21:20 Head/Face: Normocephalic, atraumatic. cp 21:20 Musculoskeletal/extremity: Extremities: grossly normal except: noted in the left lateral ankle: swelling, tenderness, ROM: limited active range of motion due to pain, in the left ankle, Sensation intact. Achilles tendon intact and no pain to palpation at base of fifth left metatarsal or proximal fibula. Vital Signs: 20:38 BP 142 / 99; Pulse 87; Resp 18; Temp 99.3; Pulse Ox 100% on R/A; Weight 92.99 kg (R); aa1 Height 5 ft. 4 in. (162.56 cm); Pain 10/10; 21:30 BP 136 / 88; Pulse 81; Resp 18; Pulse Ox 99% on R/A; aa1 22:46 BP 143 / 99; Pulse 81; Resp 16; Temp 98.7; Pulse Ox 99% on R/A; Pain 5/10; aa1 20:38 Body Mass Index 35.19 (92.99 kg, 162.56 cm) aa1 Procedures: 22:45 Splinting: Splint applied to left ankle using walking boot. applied by nurse. Examined cp by me, post splint application: neurovascular intact, Patient tolerated well. MDM: 20:40 Patient medically screened. cp 21:00 Differential diagnosis: fracture, sprain, dislocation. cp 22:14 Data reviewed: vital signs, nurses notes, radiologic studies, plain films. cp 22:14 Test interpretation: by ED physician or midlevel provider: plain radiologic studies. cp Counseling: I had a detailed discussion with the patient and/or guardian regarding: the historical points, exam findings, and any diagnostic results supporting the discharge/admit diagnosis, radiology results, the need for outpatient follow up, a orthopedic surgeon, to return to the emergency department if symptoms worsen or persist or if there are any questions or concerns that arise at home. ED course: xray of left ankle show avulsion type fracture of distal left fibula. 01/11 20:56 Order name: XRAY Ankle LEFT 3 view cp 01/11 22:13 Order name: Walking boot; Complete Time: 22:36 cp Administered Medications: 21:25 Drug: Tylenol 650 mg Route: PO; aa1 22:25 Follow up: Response: No adverse reaction; Pain is decreased aa1 21:25 Drug: Ibuprofen 800 mg Route: PO; aa1 22:25 Follow up: Response: No adverse reaction; Pain is decreased aa1 Disposition: 01/12 04:06 Co-signature as Attending Physician, Richie Brown MD I agree with the assessment and tw4 plan of care. Disposition: 01/11/19 22:15 Discharged to Home. Impression: Left distal fibula avulsion fracture. - Condition is Stable. - Discharge Instructions: Ankle Fracture. - Prescriptions for Ibuprofen 800 mg Oral Tablet - take 1 tablet by ORAL route every 8 hours As needed take with food; 30 tablet. Tramadol 50 mg Oral Tablet - take 1 tablet by ORAL route every 8 hours as needed; 20 tablet. - Medication Reconciliation Form, Thank You Letter, Antibiotic Education, Prescription Opioid Use form. - Follow up: Kyrie Perez MD; When: 1 week; Reason: Recheck today's complaints. - Problem is new. - Symptoms have improved. Signatures: Dispatcher [employer] EDMS Gloria Corona RN RN aa1 Dread Mtz PA PA Richie Pittman MD MD tw4 Corrections: (The following items were deleted from the chart) 01/11 22:38 22:13 Crutches ordered. cp aa1 22:48 22:15 01/11/2019 22:15 Discharged to Home. Impression: Left distal fibula avulsion aa1 fracture. Condition is Stable. Forms are Medication Reconciliation Form, Thank You Letter, Antibiotic Education, Prescription Opioid Use. Follow up: Dr. Kyrie Perez; When: 1 week; Reason: Recheck today's complaints. Problem is new. Symptoms have improved. cp
--- NOTE | 2019-01-11 22:16 | ER ---
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 Swelling and bruising noted. Transition of care: patient was not received from another setting of care. Onset of symptoms was January 11, 2019. Risk Assessment: Do you want to hurt yourself or someone else? Patient reports no desire to harm self or others. Initial Sepsis Screen: Does the patient meet any 2 criteria? No. Patient's initial sepsis screen is negative. Does the patient have a suspected source of infection? No. Patient's initial sepsis screen is negative. Care prior to arrival: None. 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 - Social history:: Smoking status: Patient/guardian denies using tobacco. - Ebola Screening: : No symptoms or risks identified at this time. Screenin:42 Abuse screen: Denies threats or abuse. Denies injuries from another. Nutritional aa1 screening: No deficits noted. Tuberculosis screening: No symptoms or risk factors identified. Fall Risk Gait- Impaired (20 pts.). Assessment: 20:42 General: Appears in no apparent distress. uncomfortable, Behavior is calm, cooperative, aa1 appropriate for age. Pain: Complains of pain in left foot and left lateral ankle Aggravated by weight bearing. Neuro: Level of Consciousness is awake, alert, obeys commands, Oriented to person, place, time, situation, Moves all extremities. Cardiovascular: Pulses are palpable in right dorsalis pedis artery and left dorsalis pedis artery. Respiratory: Airway is patent Respiratory effort is even, unlabored, Respiratory pattern is regular, symmetrical. GI: No signs and/or symptoms were reported involving the gastrointestinal system. : No signs and/or symptoms were reported regarding the genitourinary system. EENT: No signs and/or symptoms were reported regarding the EENT system. Derm: Skin is intact, is healthy with good turgor, Skin is pink, warm \T\ dry. Musculoskeletal: Circulation, motion, and sensation intact. Capillary refill < 3 seconds, Range of motion: limited in left ankle Swelling present in left lateral ankle. 21:55 Reassessment: Patient appears in no apparent distress at this time. Patient and/or aa1 family updated on plan of care and expected duration. Pain level reassessed. Patient is alert, oriented x 3, equal unlabored respirations, skin warm/dry/pink. Awaiting x-ray results. 22:46 Reassessment: Patient appears in no apparent distress at this time. Patient is alert, aa1 oriented x 3, equal unlabored respirations, skin warm/dry/pink. Discussed d/c \T\ f/u instructions with pt; denies questions or concerns at this time Patient states feeling better. Vital Signs: 20:38 BP 142 / 99; Pulse 87; Resp 18; Temp 99.3; Pulse Ox 100% on R/A; Weight 92.99 kg (R); aa1 Height 5 ft. 4 in. (162.56 cm); Pain 10/10; 21:30 BP 136 / 88; Pulse 81; Resp 18; Pulse Ox 99% on R/A; aa1 22:46 BP 143 / 99; Pulse 81; Resp 16; Temp 98.7; Pulse Ox 99% on R/A; Pain 5/10; aa1 20:38 Body Mass Index 35.19 (92.99 kg, 162.56 cm) aa1 ED Course: 20:14 Patient arrived in ED. es 20:35 Gloria Corona, RICKEY is Primary Nurse. aa1 20:36 Dread Mtz PA is PHCP. cp 20:36 Richie Brown MD is Attending Physician. cp 20:37 Triage completed. aa1 20:38 Arm band placed on left wrist. Patient placed in an exam room, on a stretcher. aa1 20:42 Patient has correct armband on for positive identification. Bed in low position. Call aa1 light in reach. Pulse ox on. NIBP on. 21:16 XRAY Ankle LEFT 3 view In Process Unspecified. EDMS 22:13 Kyrie Perez MD is Referral Physician. cp 22:46 No provider procedures requiring assistance completed. Patient did not have IV access aa1 during this emergency room visit. 22:46 walking boot applied to L foot. aa1 Administered Medications: 21:25 Drug: Tylenol 650 mg Route: PO; aa1 22:25 Follow up: Response: No adverse reaction; Pain is decreased aa1 21:25 Drug: Ibuprofen 800 mg Route: PO; aa1 22:25 Follow up: Response: No adverse reaction; Pain is decreased aa1 Outcome: 22:15 Discharge ordered by . cp 22:46 Discharged to home via wheelchair, with significant other. aa1 22:46 Condition: good 22:46 Discharge instructions given to patient, significant other, Instructed on discharge instructions, follow up and referral plans. medication usage, Demonstrated understanding of instructions, follow-up care, medications, Prescriptions given X 2. 22:48 Patient left the ED. aa1 Signatures: Dispatcher [employer] EDGloria Aldridge RN RN aa1 Elisa Drew Corey, PA PA cp
[2019-01-11 23:01] VITALS: TEMP 99.3
[2019-01-11 23:02] VITALS: BP 136/88; O2SAT 99
== END 2019-01-11 22:48 | disposition home or self-care (01) ==
LOC: ER 20:11
DX: S82.832A Other fracture of upper and lower end of left fibula, initial encounter for closed fracture (principal); X58.XXXA Exposure to other specified factors, initial encounter; Y93.89 Activity, other specified; Y92.9 Unspecified place or not applicable; Z88.0 Allergy status to penicillin
CPT/HCPCS: 99284

== ENCOUNTER 2020-07-24 02:33 | Emergency (ER) | payer OTHER, SELFPAY ==
--- OUTSIDE RECORDS SUMMARY | 2020-07-24 02:35 | XMS REPORT | Continuity of Care Document ---
:1980 Author Organization [facility] t Address [address] [place] [address] Care Team Providers Name Role Phone Michelle Messina Attending Clinician Echo Reyes NP Attending Clinician Galindo Gil Attending Clinician Problems This patient has no known problems. Allergies, Adverse Reactions, Alerts This patient has no known allergies or adverse reactions. Medications This patient has no known medications. Procedures This patient has no known procedures. Encounters Start End Encounter Admission Attending Care Care Encounter Source Date/Time Date/Time Type Type Clinicians Facility Department ID 2019-11-09 2019-11-09 Emergency Tamica, K [facility] [id number] 18:43:24 19:41:00 Michelle Thomas [id number] [place] [id number] [place] [address] [id number] 2019-02-09 2019-02-[address] [facility] [id number] 18:23:25 19:26:00 Jade Thomas [id number] [place] [id number] [place] [id number] 2019-01-27 2019-01-[address] [facility] [id number] 09:07:03 10:06:37 Visit [facility] [id number] Surgical [id number] [place] [id number] [place] Results This patient has no known results.
[2020-07-24] MEDS ORDERED: ACETAMINOPHEN 500 MG TAB ONE (03:11)
--- NOTE | 2020-07-24 04:54 | EDPHYS ---
Physician Documentation [facility] Name: Meghann Bob Age: 40 yrs Sex: Female : 1980 Arrival Date: 07/24/2020 Time: 02:37 Bed 7 Private MD: ED Physician Theodore Mancia HPI: 07/24 03:13 This 40 yrs old Female presents to ER via Ambulatory with complaints of mh7 Cough, Sore Throat. 03:13 The patient or guardian reports cough, that is intermittent, described as moderate, mh7 with no sputum. Onset: The symptoms/episode began/occurred yesterday. Severity of symptoms: At their worst the symptoms were moderate, yesterday, in the emergency department the symptoms are unchanged. Modifying factors: The symptoms are alleviated by nothing, the symptoms are aggravated by nothing. Associated signs and symptoms: Pertinent positives: rhinorrhea, sore throat, Pertinent negatives: chest pain, diarrhea, ear ache, fever, nausea, vomiting. Historical: - Allergies: 02:46 PENICILLINS; rv - PMHx: 02:46 None; rv - PSHx: 02:46 None; rv - Immunization history:: Adult Immunizations not up to date. - Social history:: Smoking status: Patient denies any tobacco usage or history of. ROS: 03:13 Constitutional: Negative for fever, chills, and weight loss, Eyes: Negative for injury, mh7 pain, redness, and discharge, Neck: Negative for injury, pain, and swelling, Cardiovascular: Negative for chest pain, palpitations, and edema, Abdomen/GI: Negative for abdominal pain, nausea, vomiting, diarrhea, and constipation, Back: Negative for injury and pain, : Negative for injury, bleeding, discharge, and swelling, MS/Extremity: Negative for injury and deformity, Skin: Negative for injury, rash, and discoloration, Neuro: Negative for headache, weakness, numbness, tingling, and seizure, Psych: Negative for depression, anxiety, suicide ideation, homicidal ideation, and hallucinations, Allergy/Immunology: Negative for hives, rash, and allergies, Endocrine: Negative for neck swelling, polydipsia, polyuria, polyphagia, and marked weight changes, Hematologic/Lymphatic: Negative for swollen nodes, abnormal bleeding, and unusual bruising. Exam: 03:13 Constitutional: This is a well developed, well nourished patient who is awake, alert, mh7 and in no acute distress. Head/Face: Normocephalic, atraumatic. Eyes: Pupils equal round and reactive to light, extra-ocular motions intact. Lids and lashes normal. Conjunctiva and sclera are non-icteric and not injected. Cornea within normal limits. Periorbital areas with no swelling, redness, or edema. 03:13 Neck: Trachea midline, no thyromegaly or masses palpated, and no cervical lymphadenopathy. Supple, full range of motion without nuchal rigidity, or vertebral point tenderness. No Meningismus. Chest/axilla: Normal chest wall appearance and motion. Nontender with no deformity. No lesions are appreciated. Cardiovascular: Regular rate and rhythm with a normal S1 and S2. No gallops, murmurs, or rubs. Normal PMI, no JVD. No pulse deficits. Respiratory: Lungs have equal breath sounds bilaterally, clear to auscultation and percussion. No rales, rhonchi or wheezes noted. No increased work of breathing, no retractions or nasal flaring. Abdomen/GI: Soft, non-tender, with normal bowel sounds. No distension or tympany. No guarding or rebound. No evidence of tenderness throughout. Back: No spinal tenderness. No costovertebral tenderness. Full range of motion. Skin: Warm, dry with normal turgor. Normal color with no rashes, no lesions, and no evidence of cellulitis. MS/ Extremity: Pulses equal, no cyanosis. Neurovascular intact. Full, normal range of motion. Neuro: Awake and alert, GCS 15, oriented to person, place, time, and situation. Cranial nerves II-XII grossly intact. Motor strength 5/5 in all extremities. Sensory grossly intact. Cerebellar exam normal. Normal gait. Psych: Awake, alert, with orientation to person, place and time. Behavior, mood, and affect are within normal limits. 03:13 ENT: External ear(s): are unremarkable, Ear canal(s): are normal, TM's: are normal, Nose: is normal, Mouth: is normal, Posterior pharynx: Airway: normal, Tonsils: are normal in appearance, Uvula: normal, swelling, is not appreciated, erythema, that is mild, exudate, is not appreciated, peritonsillar mass, is not appreciated, pooling of secretions, is not appreciated, Dental exam: normal, Voice: is normal, Breath odor: is normal. Vital Signs: 02:43 BP 155 / 98; Pulse 94; Resp 18; Temp 99.3; Pulse Ox 97% ; Weight 95.25 kg; Height 5 ft. rv 4 in. (162.56 cm); 04:53 BP 135 / 83; Pulse 72; Resp 18; Temp 98.7; Pulse Ox 97% on R/A; rv 02:43 Body Mass Index 36.05 (95.25 kg, 162.56 cm) rv MDM: 04:51 Differential Diagnosis: Obstructed Airway Bronchitis Influenza Upper Respiratory mh7 Infection Pharyngitis Viral Syndrome Pneumonia. Data reviewed: vital signs, nurses notes, lab test result(s), Flu: negative radiologic studies, plain films. Data interpreted: Pulse oximetry: on room air is 97 %. Interpretation: normal. Counseling: I had a detailed discussion with the patient and/or guardian regarding: the historical points, exam findings, and any diagnostic results supporting the discharge/admit diagnosis, the presence of at least one elevated blood pressure reading (>120/80) during this emergency department visit, lab results, radiology results, the need for outpatient follow up, to return to the emergency department if symptoms worsen or persist or if there are any questions or concerns that arise at home. Response to treatment: the patient's symptoms have markedly improved after treatment. 04:54 Patient medically screened. [facility] 07/24 02:56 Order name: Influenza Screen (a \\T\\ B); Complete Time: 04:10 [facility] 07/24 02:56 Order name: Rapid Strep; Complete Time: 03:41 [facility] 07/24 02:56 Order name: Chest Single View XRAY [facility] 07/24 03:09 Order name: COVID-19 : Document "Date of Symptom Onset" if Symptomatic. [email or web address] 07/24 03:37 Order name: Throat Culture EDMS Administered Medications: 03:04 Drug: Tylenol 1000 mg Route: PO; rv 04:54 Follow up: Response: No adverse reaction rv Disposition: 07/24/20 04:54 Discharged to Home. Impression: Viral Syndrome. - Condition is Stable. - Discharge Instructions: Pharyngitis, [id number], Viral Respiratory Infection, [id number]. - Prescriptions for Tessalon Perles 100 mg Oral Capsule - take 1 capsule by ORAL route every 8 hours As needed; 15 capsule. Zithromax Z- Ambrosio 250 mg Oral Tablet - take 1 tablet by ORAL route as directed for 5 days Day 1 - take two (2) tablets one time. Day 2, 3, 4 , 5 take one (1) tablet once daily.; 6 tablet. - Medication Reconciliation Form, Thank You Letter, Antibiotic Education, Prescription Opioid Use form. - Follow up: Private Physician; When: 1 - 2 days; Reason: Worsening of condition, Recheck today's complaints, Continuance of care, Re-evaluation by your physician. - Problem is new. - Symptoms have improved. Signatures: Dispatcher [employer] Charlie Thrasher RN RN Theodore Hernández MD MD mh7 Corrections: (The following items were deleted from the chart) 04:57 04:54 07/24/2020 04:54 Discharged to Home. Impression: Viral Syndrome. Condition is rv Stable. Forms are Medication Reconciliation Form, Thank You Letter, Antibiotic Education, Prescription Opioid Use. Follow up: Private Physician; When: 1 - 2 days; Reason: Worsening of condition, Recheck today's complaints, Continuance of care, Re-evaluation by your physician. Problem is new. Symptoms have improved. mh7
--- NOTE | 2020-07-24 04:54 | ER ---
Nurse's Notes [facility] Name: Meghann Bob Age: 40 yrs Sex: Female : 1980 Arrival Date: 07/24/2020 Time: 02:37 Bed 7 Private MD: Diagnosis: Viral Syndrome Presentation: 07/24 02:43 Chief complaint: Patient states: sore throat and cough started yesterday. I took OTC rv meds and those are not working. Denies SOB/. no fever. Coronavirus screen: Client denies travel out of the [place] in the last 14 days. cough unrelated to allergies, sore throat, Client presents with at least one sign or symptom that may indicate coronavirus-19. Standard/surgical mask placed on the client. Provider contacted for isolation considerations. Ebola Screen: No symptoms or risks identified at this time. Initial Sepsis Screen: Does the patient meet any 2 criteria? No. Patient's initial sepsis screen is negative. Does the patient have a suspected source of infection? No. Patient's initial sepsis screen is negative. Risk Assessment: Do you want to hurt yourself or someone else? Patient reports no desire to harm self or others. Onset of symptoms was July 23, 2020. 02:43 Method Of Arrival: Ambulatory rv 02:43 Acuity: ANGELO 4 rv Triage Assessment: 02:46 General: Appears comfortable, Behavior is calm, cooperative. Pain: Complains of pain in rv sore throat. EENT: Throat is pink. Neuro: Level of Consciousness is awake, alert, obeys commands, Oriented to person, place, time, situation. Cardiovascular: Patient's skin is warm and dry. Respiratory: Airway is patent Respiratory effort is even, unlabored. Historical: - Allergies: 02:46 PENICILLINS; rv - PMHx: 02:46 None; rv - PSHx: 02:46 None; rv - Immunization history:: Adult Immunizations not up to date. - Social history:: Smoking status: Patient denies any tobacco usage or history of. Screenin:49 Abuse screen: Denies threats or abuse. Denies injuries from another. Nutritional rv screening: No deficits noted. Tuberculosis screening: No symptoms or risk factors identified. Fall Risk None identified. Assessment: 02:49 Respiratory: Airway is patent Respiratory effort is even, unlabored, Breath sounds are rv clear bilaterally. Vital Signs: 02:43 BP 155 / 98; Pulse 94; Resp 18; Temp 99.3; Pulse Ox 97% ; Weight 95.25 kg; Height 5 ft. rv 4 in. (162.56 cm); 04:53 BP 135 / 83; Pulse 72; Resp 18; Temp 98.7; Pulse Ox 97% on R/A; rv 02:43 Body Mass Index 36.05 (95.25 kg, 162.56 cm) rv ED Course: 02:37 Patient arrived in ED. am4 02:39 Theodore Mancia MD is Attending Physician. [facility] 02:43 Charlie Crum, RN is Primary Nurse. rv 02:45 Triage completed. rv 02:48 Arm band placed on right wrist. Patient placed in the treatment room, on a stretcher, rv Patient notified of wait time. 02:49 No provider procedures requiring assistance completed. Patient did not have IV access rv during this emergency room visit. 02:50 Patient has correct armband on for positive identification. Pulse ox on. NIBP on. rv 03:45 Chest Single View XRAY In Process Unspecified. EDMS Administered Medications: 03:04 Drug: Tylenol 1000 mg Route: PO; rv 04:54 Follow up: Response: No adverse reaction rv Outcome: 04:54 Discharge ordered by . [facility] 04:54 Discharged to home ambulatory. rv 04:54 Condition: good 04:57 Discharge instructions given to patient, Instructed on discharge instructions, follow rv up and referral plans. medication usage, Demonstrated understanding of instructions, follow-up care, medications, Prescriptions given X 2. 04:57 Patient left the ED. rv Addendum: 07/26/2020 16:00 Addendum: COVID-19 Result: Positive result giiven to ED physician to notify pt. i w Physician: Harry Adan MD Physician was able to contact pt and pt was notified of positive COVID-19 swab result. Physician answered pt questions. Signatures: Dispatcher [employer] EDMS Bridget Pop RN RN Charlie Crum RN RN rv Holmes, Maurice, MD MD [facility] Kaylee Price am4
[2020-07-24 05:02] VITALS: O2SAT 97
[2020-07-24 05:03] VITALS: BP 135/83; TEMP 98.7
--- NOTE | 2020-07-24 08:37 | RAD REPORT ---
EXAM DESCRIPTION: RAD - Chest Single View - 07/24/2020 3:45 am CLINICAL HISTORY: COUGH Chest pain. COMPARISON: No comparisons FINDINGS: Portable technique limits examination quality. The lungs are grossly clear. The heart is normal in size. No displaced fractures. IMPRESSION: No acute intrathoracic process suspected.
== END 2020-07-24 04:57 | disposition home or self-care (01) ==
LOC: ER 02:33
DX: B34.9 Viral infection, unspecified (principal)
CPT/HCPCS: 71045; 87070; 87081; 87804; 99284; U0002

== ENCOUNTER 2020-08-01 08:35 | Emergency (ER) | payer OTHER, SELFPAY ==
--- NOTE | 2020-08-01 10:27 | ER ---
Nurse's Notes [facility] Name: Meghann Bob Age: 40 yrs Sex: Female : 1980 Arrival Date: 08/01/2020 Time: 08:36 Bed 20 Private MD: Diagnosis: Migraine Presentation: 08/01 08:54 Chief complaint: Patient states: migraine X 4 -5 days, +hx of migraines, not on any iw prescriptions, has been trying OTC meds, this headache feels similar to the ones she's had in the past , was also COVID positive a week ago. Coronavirus screen: At this time, the client does not indicate any symptoms associated with coronavirus-19. Ebola Screen: Patient negative for fever greater than or equal to 101.5 degrees Fahrenheit, and additional compatible Ebola Virus Disease symptoms Patient denies exposure to infectious person. Patient denies travel to an Ebola-affected area in the 21 days before illness onset. No symptoms or risks identified at this time. Initial Sepsis Screen: Does the patient meet any 2 criteria? No. Patient's initial sepsis screen is negative. Does the patient have a suspected source of infection? No. Patient's initial sepsis screen is negative. Risk Assessment: Do you want to hurt yourself or someone else? Patient reports no desire to harm self or others. Onset of symptoms was July 26, 2020. 08:54 Method Of Arrival: Ambulatory iw 08:54 Acuity: ANGELO 3 iw 08:57 Coronavirus screen: headache, Client reports previous positive COVID test result. iw Triage Assessment: 09:00 General: Appears distressed, uncomfortable, obese, Behavior is cooperative, appropriate bp for age, anxious. Pain: Complains of pain in head. EENT: No deficits noted. Neuro: Reports headache. Cardiovascular: No deficits noted. Respiratory: No deficits noted. GI: No signs and/or symptoms were reported involving the gastrointestinal system. : No signs and/or symptoms were reported regarding the genitourinary system. Derm: No deficits noted. Musculoskeletal: No deficits noted. 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 - Social history:: Smoking status: Patient denies any tobacco usage or history of. - Family history:: not pertinent. Screenin:19 Abuse screen: Denies threats or abuse. Denies injuries from another. Nutritional bp screening: No deficits noted. Tuberculosis screening: No symptoms or risk factors identified. Fall Risk None identified. Assessment: 09:00 General: SEE TRIAGE NOTE. bp 11:00 Reassessment: Patient appears in no apparent distress at this time. Patient and/or bp family updated on plan of care and expected duration. Pain level reassessed. Patient is alert, oriented x 3, equal unlabored respirations, skin warm/dry/pink. Patient states symptoms have improved. 11:55 Reassessment: PT D/C HOME AMBULATORY, DX WITH MIGRAINE AND COVID19. bp Vital Signs: 08:54 BP 143 / 100; Pulse 74; Resp 16; Temp 97.6; Pulse Ox 100% on R/A; Weight 95.25 kg; iw Height 5 ft. 4 in. (162.56 cm); Pain 9/10; 11:00 BP 137 / 89; Pulse 76; Resp 17; Pulse Ox 100% ; bp 12:10 BP 121 / 62; Pulse 71; Resp 16; Temp 97.8; Pulse Ox 100% ; bp 08:54 Body Mass Index 36.05 (95.25 kg, 162.56 cm) iw ED Course: 08:36 Patient arrived in ED. rg4 08:56 Triage completed. iw 09:04 Eric Meehan, RICKEY is Primary Nurse. bp 09:07 Dread Wilson MD is Attending Physician. reji 09:18 Arm band placed on. bp 09:19 Patient has correct armband on for positive identification. Bed in low position. Call bp light in reach. Side rails up X2. 10:24 Eric Daniel MD is Referral Physician. reji 11:56 No provider procedures requiring assistance completed. Patient did not have IV access bp during this emergency room visit. intact, bleeding controlled, No redness/swelling at site. Pressure dressing applied. Administered Medications: 10:30 Drug: Demerol 50 mg Route: IM; Site: right gluteus; bp 11:08 Follow up: Response: Pain is decreased bp 10:30 Drug: Phenergan 25 mg Route: IM; Site: right gluteus; bp 11:08 Follow up: Response: Pain is decreased bp Outcome: 10:26 Discharge ordered by . reji 12:11 Discharged to home ambulatory, with family. bp 12:11 Condition: stable 12:11 Discharge instructions given to patient, Instructed on discharge instructions, follow up and referral plans. medication usage, Demonstrated understanding of instructions, follow-up care, medications, Prescriptions given X 2. 12:11 Patient left the ED. bp Signatures: Dread Wilson MD MD cha Williams, Irene, RICKEY RN Christine Mejia rg4 Eric Meehan RN RN bp Corrections: (The following items were deleted from the chart) 08:58 08:54 Chief complaint: Patient states: migraine X 4 -5 days, +hx of migraines, not on iw any prescriptions, has been trying OTC meds, this headache feels similar to the ones she's had in the past iw
--- NOTE | 2020-08-01 10:27 | EDPHYS ---
Physician Documentation [facility] Name: Meghann Bob Age: 40 yrs Sex: Female : 1980 Arrival Date: 08/01/2020 Time: 08:36 Bed 20 Private MD: ED Physician Dread Wilson HPI: 08/01 10:16 This 40 yrs old Female presents to ER via Ambulatory with complaints of reji Migraine, COVID +. 10:16 The patient complains of pain to the top of head, forehead, left frontal area, left reji side of the back of head, left occipital area, left base of the skull, right frontal area, right side of the back of head, right occipital area and right base of the skull. The patient describes the headache as aching. Onset: The symptoms/episode began/occurred 3 day(s) ago. Associated signs and symptoms: The patient has no apparent associated signs or symptoms. Severity of symptoms: At its worst the pain was moderate, in the emergency department the pain is unchanged. Headache History: Denies prior headaches. The symptoms are alleviated by Darkened room, quiet, remaining still, the symptoms are aggravated by lights, movement, noise. The patient has experienced similar episodes in the past, multiple times. 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 - Social history:: Smoking status: Patient denies any tobacco usage or history of. - Family history:: not pertinent. ROS: 10:16 Constitutional: Negative for fever, chills, and weight loss, Eyes: Negative for injury, reji pain, redness, and discharge, ENT: Negative for injury, pain, and discharge, Neck: Negative for injury, pain, and swelling, Cardiovascular: Negative for chest pain, palpitations, and edema, Respiratory: Negative for shortness of breath, cough, wheezing, and pleuritic chest pain, Abdomen/GI: Negative for abdominal pain, nausea, vomiting, diarrhea, and constipation, Back: Negative for injury and pain, : Negative for injury, bleeding, discharge, and swelling, MS/Extremity: Negative for injury and deformity, Skin: Negative for injury, rash, and discoloration, Psych: Negative for depression, anxiety, suicide ideation, homicidal ideation, and hallucinations, Allergy/Immunology: Negative for hives, rash, and allergies, Endocrine: Negative for neck swelling, polydipsia, polyuria, polyphagia, and marked weight changes, Hematologic/Lymphatic: Negative for swollen nodes, abnormal bleeding, and unusual bruising. 10:16 Neuro: Positive for headache. Exam: 10:16 Constitutional: This is a well developed, well nourished patient who is awake, alert, reji and in no acute distress. Head/Face: Normocephalic, atraumatic. Eyes: Pupils equal round and reactive to light, extra-ocular motions intact. Lids and lashes normal. Conjunctiva and sclera are non-icteric and not injected. Cornea within normal limits. Periorbital areas with no swelling, redness, or edema. ENT: Nares patent. No nasal discharge, no septal abnormalities noted. Tympanic membranes are normal and external auditory canals are clear. Oropharynx with no redness, swelling, or masses, exudates, or evidence of obstruction, uvula midline. Mucous membranes moist. Neck: Trachea midline, no thyromegaly or masses palpated, and no cervical lymphadenopathy. Supple, full range of motion without nuchal rigidity, or vertebral point tenderness. No Meningismus. Chest/axilla: Normal chest wall appearance and motion. Nontender with no deformity. No lesions are appreciated. Cardiovascular: Regular rate and rhythm with a normal S1 and S2. No gallops, murmurs, or rubs. Normal PMI, no JVD. No pulse deficits. Respiratory: Lungs have equal breath sounds bilaterally, clear to auscultation and percussion. No rales, rhonchi or wheezes noted. No increased work of breathing, no retractions or nasal flaring. Abdomen/GI: Soft, non-tender, with normal bowel sounds. No distension or tympany. No guarding or rebound. No evidence of tenderness throughout. Back: No spinal tenderness. No costovertebral tenderness. Full range of motion. Skin: Warm, dry with normal turgor. Normal color with no rashes, no lesions, and no evidence of cellulitis. MS/ Extremity: Pulses equal, no cyanosis. Neurovascular intact. Full, normal range of motion. Neuro: Awake and alert, GCS 15, oriented to person, place, time, and situation. Cranial nerves II-XII grossly intact. Motor strength 5/5 in all extremities. Sensory grossly intact. Cerebellar exam normal. Normal gait. Psych: Awake, alert, with orientation to person, place and time. Behavior, mood, and affect are within normal limits. 10:16 Neck: ROM/movement: is normal, no acute changes, Lymph nodes: no appreciated lymphadenopathy. Vital Signs: 08:54 BP 143 / 100; Pulse 74; Resp 16; Temp 97.6; Pulse Ox 100% on R/A; Weight 95.25 kg; iw Height 5 ft. 4 in. (162.56 cm); Pain 9/10; 11:00 BP 137 / 89; Pulse 76; Resp 17; Pulse Ox 100% ; bp 12:10 BP 121 / 62; Pulse 71; Resp 16; Temp 97.8; Pulse Ox 100% ; bp 08:54 Body Mass Index 36.05 (95.25 kg, 162.56 cm) iw MDM: 09:07 Patient medically screened. reji Administered Medications: 10:30 Drug: Demerol 50 mg Route: IM; Site: right gluteus; bp 11:08 Follow up: Response: Pain is decreased bp 10:30 Drug: Phenergan 25 mg Route: IM; Site: right gluteus; bp 11:08 Follow up: Response: Pain is decreased bp Disposition: 08/01/20 10:26 Discharged to Home. Impression: Migraine. - Condition is Stable. - Discharge Instructions: Migraine Headache, COVID-19. - Prescriptions for Fioricet with Codeine 50- 325-40-30 mg Oral capsule - take 1 capsule by ORAL route every 4 hours as needed not to exceed 6 capsules per 24hrs; 15 capsule. Zofran 4 mg Oral Tablet - take 1 tablet by ORAL route every 12 hours As needed; 20 tablet. - Medication Reconciliation Form, Thank You Letter, Antibiotic Education, Prescription Opioid Use form. - Follow up: Private Physician; When: 2 - 3 days; Reason: Recheck today's complaints, Continuance of care, Re-evaluation by your physician. Follow up: Eric Daniel MD; When: 2 - 3 days; Reason: Recheck today's complaints, Re-evaluation by your physician. - Problem is new. - Symptoms have improved. Signatures: Dread Wilson MD MD cha Williams, Irene, RN RN Eric Lee, RN RN bp Corrections: (The following items were deleted from the chart) 12:11 10:26 08/01/2020 10:26 Discharged to Home. Impression: Migraine. Condition is Stable. bp Forms are Medication Reconciliation Form, Thank You Letter, Antibiotic Education, Prescription Opioid Use. Follow up: Private Physician; When: 2 - 3 days; Reason: Recheck today's complaints, Continuance of care, Re-evaluation by your physician. Follow up: Eric Daniel; When: 2 - 3 days; Reason: Recheck today's complaints, Re-evaluation by your physician. Problem is new. Symptoms have improved. reji
[2020-08-01] MEDS ORDERED: MEPERIDINE HCL 50 MG/ML ONE (10:54)
[2020-08-01] MEDS ORDERED: PROMETHAZINE INJ 25 MG/ML AMP ONE (10:54)
[2020-08-01 12:19] VITALS: O2SAT 100
[2020-08-01 12:21] VITALS: BP 121/62; TEMP 97.8
== END 2020-08-01 12:11 | disposition home or self-care (01) ==
LOC: ER 08:35
DX: G43.909 Migraine, unspecified, not intractable, without status migrainosus (principal); U07.1 COVID-19
CPT/HCPCS: 96372; 99283; J2175; J2550

== ENCOUNTER 2020-09-26 09:09 | Emergency (ER) | payer OTHER, SELFPAY ==
--- OUTSIDE RECORDS SUMMARY | 2020-09-26 09:12 | XMS REPORT | Continuity of Care Document ---
:1980 Author Organization [facility] t Address [address] [place] [address] Care Team Providers Name Role Phone Wellington GAMBOA Attending Clinician Doctor Unassigned, Name Attending Clinician Unavailable Michelle Messina Attending Clinician Eric STABLE CLEANER, G Attending Clinician Nicolle MCNAMARA, S Attending Clinician Problems This patient has no known problems. Allergies, Adverse Reactions, Alerts This patient has no known allergies or adverse reactions. Social History Social Habit Start Date Stop Date Quantity Comments Source Sex Assigned At [facility] Medications This patient has no known medications. Procedures This patient has no known procedures. Encounters Start End Encounter Admission Attending Care Care Encounter Source Date/Time Date/Time Type Type Clinicians Facility Department ID 2020-08-27 2020-08-27 Emergency Wellington [facility] [id number] 14:00:00 14:43:00 Santiago Thomas [id number] [place] [id number] [place] [id number] 2020-08-27 2020-08-27 Orders Doctor CARTER [id number] 00:00:00 00:00:00 Only HARRISON Olivia [id number] [place] [facility] [id number] 2019-11-09 2019-11-09 Emergency Dorian Davey [facility] [id number] 18:43:24 19:41:00 Michelle Thomas [id number] [place] [id number] [place] [id number] 2019-02-09 2019-02-09 Emergency Eric [facility] [id number] 18:23:25 19:26:00 Jade Thomas [id number] [place] [id number] [place] [id number] 2019-01-27 2019-01-27 Office Nicolle [facility] [id number] 09:07:03 10:06:37 Visit [facility] [id number] [facility] [id number] [place] [id number] sheri Thomas Results This patient has no known results.
--- NOTE | 2020-09-26 09:35 | RAD REPORT ---
EXAM DESCRIPTION: CT - Chest Abdomen Pelvis W Cont - 09/26/2020 9:22 am CLINICAL HISTORY: Chest and abdomen pain. TRAUMA COMPARISON: Chest Single View dated 07/24/2020 TECHNIQUE: Approximately 100 mL nonionic IV contrast was administered to the patient. All CT scans are performed using dose optimization technique as appropriate and may include automated exposure control or mA/KV adjustment according to patient size. FINDINGS: The lungs are clear.No pleural or pericardial effusion.No intrathoracic adenopathy. The liver, spleen, pancreas, adrenal glands and kidneys are within normal limits. No bowel obstruction, free air, free fluid or abscess. Normal appendix. Stool is retained throughout the colon with diverticula present. No pathologic lymphadenopathy in the abdomen or pelvis. No worrisome osseous finding. IMPRESSION: No acute findings seen.
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
[2020-09-26] MEDS ORDERED: ONDANSETRON 4 MG/2 ML VIAL ONE (10:06)
[2020-09-26] MEDS ORDERED: MORPHINE 4 MG/ML SYR ONE (10:06)
[2020-09-26 10:28] VITALS: TEMP 97.4; O2SAT 100
[2020-09-26 10:30] VITALS: BP 146/92
== END 2020-09-26 10:20 | disposition home or self-care (01) ==
LOC: ER 09:09
DX: S20.311A Abrasion of right front wall of thorax, initial encounter (principal); R10.9 Unspecified abdominal pain; V43.52XA Car driver injured in collision with other type car in traffic accident, initial encounter
CPT/HCPCS: 82565; 71260; 74177; Q9967; J2405; 96374; 96375; 99284; G0390

== ENCOUNTER 2020-09-28 13:22 | Emergency (ER) | payer OTHER, SELFPAY ==
--- OUTSIDE RECORDS SUMMARY | 2020-09-28 13:24 | XMS REPORT | Continuity of Care Document ---
:1980 Author Organization [facility] t Address [address] [place] [address] Care Team Providers Name Role Phone Wellington GAMBOA Attending Clinician Doctor Unassigned, Name Attending Clinician Unavailable Michelle Messina Attending Clinician Eric RIGGER SUPERVISOR, G Attending Clinician Nicolle MCNAMARA, S Attending Clinician Problems This patient has no known problems. Allergies, Adverse Reactions, Alerts This patient has no known allergies or adverse reactions. Social History Social Habit Start Date Stop Date Quantity Comments Source Sex Assigned At [facility] Medications This patient has no known medications. Procedures This patient has no known procedures. Encounters Start End Encounter Admission Attending Care Care Encounter Source Date/Time Date/Time Type Type Clinicians Facility Department ID 2020-08-27 2020-08-27 Emergency Wellington [facility] [id number] 14:00:00 14:43:00 Santiago Thomas [id number] [place] [id number] [place] [id number] 2020-08-27 2020-08-27 Orders Doctor CARTER [id number] 00:00:00 00:00:00 Only HARRISON Olivia [id number] [place] [facility] [id number] 2019-11-09 2019-11-09 Emergency Dorian Davey [facility] [id number] 18:43:24 19:41:00 Michelle Thomas [id number] [place] [id number] Pearson [id number] 2019-02-09 2019-02-09 Emergency Eric [facility] [id number] 18:23:25 19:26:00 Jade Thomas [id number] [place] [id number] [place] [id number] 2019-01-27 2019-01-27 Office Nicolle [facility] [id number] 09:07:03 10:06:37 Visit [facility] [id number] Surgical [id number] [place] [id number] sheri Thomas Results This patient has no known results.
--- NOTE | 2020-09-28 14:50 | RAD REPORT ---
EXAM DESCRIPTION: CT - Abdomen Pelvis W Contrast - 09/28/2020 2:22 pm CLINICAL HISTORY: Abdominal pain COMPARISON: September 26, 2020 TECHNIQUE: Computed axial tomography of the abdomen pelvis was obtained. 100 cc Isovue-300 was admin istered intravenously. Oral contrast was not requested which limits evaluation of bowel. All CT scans are performed using dose optimization technique as appropriate and may include automated exposure control or mA/KV adjustment according to patient size. FINDINGS: Fatty liver Spleen, pancreas, adrenal and kidneys appear unremarkable. There is no evidence of diverticulitis. Normal appendix 4 centimeter uterine fibroid is suspected. IMPRESSION: No acute abnormality is displayed.
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
[2020-09-28 16:06] VITALS: TEMP 97.6
[2020-09-28 16:08] VITALS: BP 127/80; O2SAT 16
== END 2020-09-28 16:00 | disposition home or self-care (01) ==
LOC: ER 13:22
DX: R10.84 Generalized abdominal pain (principal); V49.49XS Driver injured in collision with other motor vehicles in traffic accident, sequela; Z88.0 Allergy status to penicillin
CPT/HCPCS: 74177; 99283; Q9967

== ENCOUNTER 2020-12-21 10:16 | Emergency (ER) | payer OTHER ==
--- OUTSIDE RECORDS SUMMARY | 2020-12-21 11:32 | XMS REPORT | Continuity of Care Document ---
:1980 Author Organization [facility] t Address [address] [place] [address] Care Team Providers Name Role Phone Wellington GAMBOA Attending Clinician Doctor Unassigned, Name Attending Clinician Unavailable Michelle Messina Attending Clinician Eric TONY G Attending Clinician Nicolle MCNAMARA S Attending Clinician Problems This patient has no known problems. Allergies, Adverse Reactions, Alerts This patient has no known allergies or adverse reactions. Social History Social Habit Start Date Stop Date Quantity Comments Source Sex Assigned At [facility] Medications This patient has no known medications. Procedures This patient has no known procedures. Encounters Start End Encounter Admission Attending Care Care Encounter Source Date/Time Date/Time Type Type Clinicians Facility Department ID 2020-08-27 2020-08-27 Emergency Wellington [facility] [id number] 14:00:00 14:43:00 Santiago Thomas [id number] [place] [id number] [place] [id number] 2020-08-27 2020-08-27 Orders Doctor CARTER [id number] 00:00:00 00:00:00 Only HARRISON Olivia [id number] [place] [id number] 2019-11-09 2019-11-09 Emergency Tamica, K [facility] [id number] 18:43:24 19:41:00 Michelle Thomas [id number] [place] [id number] [place] [id number] 2019-02-09 2019-02-09 [facility] [id number] 18:23:25 19:26:00 Jade Thomas [id number] [place] [id number] [place] [id number] 2019-01-27 2019-01-27 Office [facility] [id number] 09:07:03 10:06:37 Visit [facility] [id number] Surgical [id number] Special [phone] sheri Thomas Results This patient has no known results.
--- NOTE | 2020-12-21 11:57 | ER ---
Nurse's Notes [facility] Name: Meghann Bob Age: 40 yrs Sex: Female : 1980 Arrival Date: 12/21/2020 Time: 10:19 Bed 5 Private MD: Diagnosis: Allergic rhinitis, unspecified Presentation: 12/21 10:28 Chief complaint: Patient states: Sinus congestion, FLANAGAN for 1 week. No fever. Sore throat ll1 started Friday. Coronavirus screen: Client denies travel out of the [place] in the last 14 days. congestion, sore throat. Ebola Screen: Patient denies travel to an Ebola-affected area in the 21 days before illness onset. Initial Sepsis Screen: Does the patient meet any 2 criteria? No. Patient's initial sepsis screen is negative. Does the patient have a suspected source of infection? Yes: Other: NASAL CONGESTION AND SORE THROAT. Risk Assessment: Do you want to hurt yourself or someone else? Patient reports no desire to harm self or others. Onset of symptoms was December 14, 2020. 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 - Social history:: Smoking status: Patient denies any tobacco usage or history of. - Family history:: not pertinent. - Hospitalizations: : No recent hospitalization is reported. Screenin:30 Abuse screen: Denies threats or abuse. Nutritional screening: No deficits noted. ll1 Tuberculosis screening: No symptoms or risk factors identified. Fall Risk None identified. Total Murphy Fall Scale indicates No Risk (0-24 pts). Assessment: 10:30 General: Appears in no apparent distress. Behavior is calm, cooperative, appropriate ll1 for age. Pain: Complains of pain in THROAT Quality of pain is described as aching, Aggravated by eating, drinking. Neuro: No deficits noted. Cardiovascular: No deficits noted. Respiratory: No deficits noted. EENT: Reports nasal congestion pain when swallowing. 11:30 Reassessment: No changes from previously documented assessment. Patient and/or family 1 updated on plan of care and expected duration. Pain level reassessed. Vital Signs: 10:28 BP 147 / 105; Pulse 70; Resp 16; Temp 97.0; Pulse Ox 100% ; Weight 86.18 kg; Height 5 ll1 ft. 4 in. (162.56 cm); Pain 8/10; 12:04 BP 151 / 96; Pulse 62; Resp 17; Pulse Ox 100% ; ll1 10:28 Body Mass Index 32.61 (86.18 kg, 162.56 cm) ll1 ED Course: 10:19 Patient arrived in ED. 10:21 Soto Hutchinson MD is Attending Physician. rn 10:28 Dianne Thompson RN is Primary Nurse. ll1 10:28 Arm band placed on Patient placed in an exam room, on a stretcher. ll1 10:30 Triage completed. ll1 10:30 Patient has correct armband on for positive identification. Bed in low position. Call ll1 light in reach. Side rails up X 1. Cardiac monitoring not applicable on this patient. 10:32 Strep Sent. ll1 12:05 No provider procedures requiring assistance completed. Patient did not have IV access ll1 during this emergency room visit. Administered Medications: No medications were administered Outcome: 11:56 Discharge ordered by . rn 12:05 Discharged to home ambulatory. ll1 12:05 Condition: stable 12:05 Discharge instructions given to patient, Instructed on discharge instructions, follow up and referral plans. Demonstrated understanding of instructions, follow-up care. 12:05 Patient left the ED. 1 Signatures: Soto Hutchinson MD MD rn Lewis, Lynsay, RN RN 1 Rafaela Cobb
--- NOTE | 2020-12-21 11:57 | EDPHYS ---
Physician Documentation [facility] Name: Meghann Bob Age: 40 yrs Sex: Female : 1980 Arrival Date: 12/21/2020 Time: 10:19 Bed 5 Private MD: ED Physician Soto Hutchinson HPI: 12/21 10:27 This 40 yrs old Female presents to ER via Unassigned with complaints of Sinus rn Congestion. 10:27 The patient or guardian reports sore throat, sinus drainage for 2 weeks. Onset: The rn symptoms/episode began/occurred 2 week(s) ago. Severity of symptoms: At their worst the symptoms were mild, in the emergency department the symptoms are unchanged. Modifying factors: The symptoms are alleviated by nothing, the symptoms are aggravated by nothing. Associated signs and symptoms: Pertinent positives: rhinorrhea, sore throat, Pertinent negatives: chest pain, fever. The patient has experienced similar episodes in the past. The patient has not recently seen a physician. Reports 2 weeks of sinus drainage and sore throat, not getting better with OTC meds, feels like allergies acting up. no fever. Is COVID vaccinated. No known sick contacts. . 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 - Social history:: Smoking status: Patient denies any tobacco usage or history of. - Family history:: not pertinent. - Hospitalizations: : No recent hospitalization is reported. ROS: 10:27 Constitutional: Negative for fever, chills, and weight loss, Eyes: Negative for injury, rn pain, redness, and discharge, ENT: + sinus drainage and sore throat Neck: Negative for injury, pain, and swelling, Cardiovascular: Negative for chest pain, palpitations, and edema, Respiratory: Negative for shortness of breath, cough, wheezing, and pleuritic chest pain, Abdomen/GI: Negative for abdominal pain, nausea, vomiting, diarrhea, and constipation, Back: Negative for injury and pain, MS/Extremity: Negative for injury and deformity, Skin: Negative for injury, rash, and discoloration, Neuro: Negative for headache, weakness, numbness, tingling, and seizure. Exam: 10:27 Constitutional: This is a well developed, well nourished patient who is awake, alert, rn and in no acute distress. Head/Face: Normocephalic, atraumatic. Eyes: Pupils equal round and reactive to light, extra-ocular motions intact. Lids and lashes normal. Conjunctiva and sclera are non-icteric and not injected. Cornea within normal limits. Periorbital areas with no swelling, redness, or edema. ENT: No pharyngeal swelling/erythema, no stridor, no masses, no sinus tenderness or swelling Neck: + non-tender bilateral cervical LAD Cardiovascular: Regular rate and rhythm. No pulse deficits. Respiratory: No increased work of breathing, no retractions or nasal flaring. Vital Signs: 10:28 BP 147 / 105; Pulse 70; Resp 16; Temp 97.0; Pulse Ox 100% ; Weight 86.18 kg; Height 5 ll1 ft. 4 in. (162.56 cm); Pain 8/10; 12:04 BP 151 / 96; Pulse 62; Resp 17; Pulse Ox 100% ; ll1 10:28 Body Mass Index 32.61 (86.18 kg, 162.56 cm) ll1 MDM: 10:21 Patient medically screened. rn 11:55 Differential Diagnosis: Upper Respiratory Infection Sinusitis Pharyngitis Viral rn Syndrome Other strep. Data reviewed: vital signs, nurses notes, lab test result(s), and as a result, I will discharge patient. Counseling: I had a detailed discussion with the patient and/or guardian regarding: the historical points, exam findings, and any diagnostic results supporting the discharge/admit diagnosis, lab results, the need for outpatient follow up, to return to the emergency department if symptoms worsen or persist or if there are any questions or concerns that arise at home. Response to treatment: the patient's symptoms have mildly improved after treatment, and as a result, I will discharge patient. Special discussion: I discussed with the patient/guardian in detail that at this point there is no indication for admission to the hospital. It is understood, however, that if the symptoms persist or worsen the patient needs to return immediately for re-evaluation. ED course: No oxygen requirement, strep neg, COVID vaccinated, will dc home as most likely either viral syndrome vs allergies. Recommend OTC meds and nasal spray.. 12/21 10:26 Order name: Strep; Complete Time: 11:04 rn 12/21 10:47 Order name: Throat Culture EDMS Administered Medications: No medications were administered Disposition Summary: 12/21/20 11:56 Discharge Ordered Location: Home rn Problem: new rn Symptoms: have improved rn Condition: Stable rn Diagnosis - Allergic rhinitis, unspecified rn Followup: rn - With: Private Physician - When: As needed - Reason: Recheck today's complaints, Re-evaluation by your physician Discharge Instructions: - Discharge Summary Sheet rn - Allergies, Adult rn - Allergic Rhinitis, Adult rn Forms: - Medication Reconciliation Form rn - Thank You Letter rn - Antibiotic advice line rn - Prescription Opioid Use rn Signatures: Dispatcher [employer] Soto Melendrez MD MD rn Lewis, Lynsay RN RN ll1
[2020-12-21 12:10] VITALS: TEMP 97; O2SAT 100
[2020-12-21 12:13] VITALS: BP 151/96
== END 2020-12-21 12:05 | disposition home or self-care (01) ==
LOC: ER 10:16
DX: J30.9 Allergic rhinitis, unspecified (principal); Z88.0 Allergy status to penicillin
CPT/HCPCS: 87070; 87081; 99283

== ENCOUNTER 2021-03-01 12:31 | Emergency (ER) | payer OTHER ==
[2021-03-01] MEDS ORDERED: ACETAMINOPHEN 500 MG TAB ONE (13:37)
[2021-03-01] MEDS ORDERED: ONDANSETRON 4 MG (ODT) TAB ONE (13:38)
[2021-03-01] MEDS ORDERED: dexAMETHasone 10 MG/ML VIAL ONE (14:51)
--- NOTE | 2021-03-01 17:17 | EDPHYS ---
Physician Documentation [facility] Name: Meghann Bob Age: 40 yrs Sex: Female : 1980 Arrival Date: 03/01/2021 Time: 12:34 Bed 23 Private MD: ED Physician Harry Adan HPI: 03/01 17:15 This 40 yrs old Female presents to ER via Ambulatory with complaints of jmm Headache, Nausea. 17:15 Onset: The symptoms/episode began/occurred gradually. Modifying factors: The symptoms jmm are alleviated by nothing. the symptoms are aggravated by nothing. Associated signs and symptoms: Pertinent positives: sore throat, Pertinent negatives: fever. It is unknown whether or not the patient has had similar symptoms in the past. Patient complains of headache and sinus drainage and throat irritation.. 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 - Social history:: Smoking status: Patient denies any tobacco usage or history of. ROS: 17:15 Constitutional: Negative for fever, chills, and weight loss. jmm 17:15 ENT: Positive for sinus congestion, sore throat. 17:15 Neuro: Positive for headache. 17:15 All other systems are negative. Exam: 17:15 Constitutional: This is a well developed, well nourished patient who is awake, alert, jmm and in no acute distress. Head/Face: atraumatic. Eyes: EOMI, no conjunctival erythema appreciated ENT: Moist Mucus Membranes Neck: Trachea midline, Supple Chest/axilla: Normal chest wall appearance and motion. Cardiovascular: Regular rate and rhythm. No edema appreciated Respiratory: Normal respirations, no respiratory distress appreciated Abdomen/GI: Non distended, soft Back: Normal ROM Skin: General appearance color normal MS/ Extremity: Moves all extremities, no obvious deformities appreciated, no edema noted to the lower extremities Neuro: Awake and alert, normal gait Psych: Behavior is normal, Mood is normal, Patient is cooperative and pleasant Vital Signs: 13:02 BP 134 / 100; Pulse 76; Resp 16; Temp 98.4; Pulse Ox 100% ; Weight 90.72 kg; Height 5 vg1 ft. 4 in. (162.56 cm); Pain 8/10; 13:14 BP 144 / 108; Pulse 71; Resp 18; Pulse Ox 99% on R/A; Pain 8/10; ld1 15:24 BP 150 / 83; Pulse 65; Resp 18; Pulse Ox 98% on R/A; ld1 16:31 BP 127 / 80; Pulse 68; Resp 18; Pulse Ox 99% on R/A; ld1 17:17 BP 163 / 100; Pulse 75; Resp 18; Pulse Ox 100% ; ld1 13:02 Body Mass Index 34.33 (90.72 kg, 162.56 cm) vg1 MDM: 13:59 Patient medically screened. [facility] 17:16 Data reviewed: vital signs, nurses notes. Counseling: I had a detailed discussion with [facility] the patient and/or guardian regarding: the historical points, exam findings, and any diagnostic results supporting the discharge/admit diagnosis, lab results, the need for outpatient follow up, to return to the emergency department if symptoms worsen or persist or if there are any questions or concerns that arise at home. ED course: Patient is alert nontoxic in appearance in the ER. Patient advised to follow-up PCP and otherwise given strict return precautions. Patient understood and agrees plan of care.. 03/01 17:00 Order name: SARS-COV-2 RT PCR; Complete Time: 17:00 EDMS Administered Medications: 13:14 Drug: Tylenol 1000 mg Route: PO; ld1 14:29 Follow up: Response: No adverse reaction ld1 13:14 Drug: Ondansetron 4 mg Route: PO; ld1 14:29 Follow up: Response: No adverse reaction ld1 14:29 Drug: Decadron (dexamethasone) 10 mg Route: IM; Site: right deltoid; ld1 14:29 Follow up: Response: No adverse reaction ld1 Disposition: 03/02 05:19 Co-signature as Attending Physician, Harry Adan MD I agree with the assessment and kdr plan of care. Disposition Summary: 03/01/21 17:17 Discharge Ordered Location: Home [facility] Condition: Stable [facility] Diagnosis - Coronavirus infection, unspecified [facility] Followup: lance - With: Private Physician - When: 2 - 3 days - Reason: Recheck today's complaints, Continuance of care, Re-evaluation by your physician Discharge Instructions: - Discharge Summary Sheet aida - COVID-19 [facility] Forms: - Medication Reconciliation Form [facility] - Thank You Letter lance - Antibiotic Education lance - Prescription Opioid Use [facility] Signatures: Dispatcher [employer] EDMS Harry Adan MD MD kdr Mickail, Joel, PA PA jmm Garcia, Victoria, RN RN vg1 Vanessa Davis RN RN ld1 Corrections: (The following items were deleted from the chart) 03/01 15:30 14:20 CORONAVIRUS+MR.LAB.BRZ ordered. [facility]
--- NOTE | 2021-03-01 17:17 | ER ---
Nurse's Notes [facility] Name: Meghann Bob Age: 40 yrs Sex: Female : 1980 Arrival Date: 03/01/2021 Time: 12:34 Bed 23 Private MD: Diagnosis: Coronavirus infection, unspecified Presentation: 03/01 13:02 Chief complaint: Patient states: Nausea began yesterday, pt states has drainage that vg1 goes to back of throat; vomited this morning. Stated headache began today. Denies sore throat. Coronavirus screen: Vaccine status: Patient reports receiving the 1st dose of the Covid vaccine. J\T\J Client presents with at least one sign or symptom that may indicate coronavirus-19. Standard/surgical mask placed on the client. Ebola Screen: Patient negative for fever greater than or equal to 101.5 degrees Fahrenheit, and additional compatible Ebola Virus Disease symptoms. Initial Sepsis Screen: Does the patient meet any 2 criteria? No. Patient's initial sepsis screen is negative. Does the patient have a suspected source of infection? No. Patient's initial sepsis screen is negative. Risk Assessment: Do you want to hurt yourself or someone else? Patient reports no desire to harm self or others. Onset of symptoms was February 28, 2021. 13:02 Method Of Arrival: Ambulatory vg1 13:02 Acuity: ANGELO 3 vg1 Triage Assessment: 13:04 Headache History: The patient has had previous headaches and this one is similar to vg1 previous episodes. General: Appears in no apparent distress. uncomfortable, Behavior is calm, cooperative. Pain: Complains of pain in head Pain currently is 8 out of 10 on a pain scale. Pain began 4 hours ago. Also complains of nausea, photophobia. Neuro: Level of Consciousness is awake, alert, obeys commands, Oriented to person, place, time, situation, Reports headache states 'feel pressure behind both my eyes'. 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 - Social history:: Smoking status: Patient denies any tobacco usage or history of. Screenin:14 Abuse screen: Denies threats or abuse. Denies injuries from another. Nutritional ld1 screening: No deficits noted. Tuberculosis screening: No symptoms or risk factors identified. Fall Risk None identified. Assessment: 13:14 General: Appears in no apparent distress. comfortable, Behavior is calm, cooperative, ld1 appropriate for age. Pain: Complains of pain in forehead Pain does not radiate. Pain currently is 8 out of 10 on a pain scale. Quality of pain is described as throbbing, Pain began 1 day ago. Is continuous. Neuro: Level of Consciousness is awake, alert, obeys commands, Oriented to person, place, time, situation, Appropriate for age. Cardiovascular: Capillary refill < 3 seconds Patient's skin is warm and dry. Respiratory: Airway is patent Respiratory effort is even, unlabored, Respiratory pattern is regular, symmetrical. GI: Abdomen is round non-distended, Reports nausea. : No signs and/or symptoms were reported regarding the genitourinary system. EENT: Reports nasal congestion. Derm: No signs and/or symptoms reported regarding the dermatologic system. Musculoskeletal: No signs and/or symptoms reported regarding the musculoskeletal system. 15:24 Reassessment: Patient appears in no apparent distress at this time. Patient and/or ld1 family updated on plan of care and expected duration. Pain level reassessed. Patient is alert, oriented x 3, equal unlabored respirations, skin warm/dry/pink. 16:31 Reassessment: No changes from previously documented assessment. Patient and/or family ld1 updated on plan of care and expected duration. Pain level reassessed. Patient is alert, oriented x 3, equal unlabored respirations, skin warm/dry/pink. 17:17 Reassessment: Patient appears in no apparent distress at this time. No changes from ld1 previously documented assessment. Patient and/or family updated on plan of care and expected duration. Pain level reassessed. Vital Signs: 13:02 BP 134 / 100; Pulse 76; Resp 16; Temp 98.4; Pulse Ox 100% ; Weight 90.72 kg; Height 5 vg1 ft. 4 in. (162.56 cm); Pain 8/10; 13:14 BP 144 / 108; Pulse 71; Resp 18; Pulse Ox 99% on R/A; Pain 8/10; ld1 15:24 BP 150 / 83; Pulse 65; Resp 18; Pulse Ox 98% on R/A; ld1 16:31 BP 127 / 80; Pulse 68; Resp 18; Pulse Ox 99% on R/A; ld1 17:17 BP 163 / 100; Pulse 75; Resp 18; Pulse Ox 100% ; ld1 13:02 Body Mass Index 34.33 (90.72 kg, 162.56 cm) vg1 ED Course: 12:34 Patient arrived in ED. mr 13:04 Triage completed. vg1 13:04 Arm band placed on. vg1 13:08 Alec Kc PA is PHCP. [facility] 13:08 Harry Adan MD is Attending Physician. [facility] 13:14 Patient has correct armband on for positive identification. Bed in low position. Call ld1 light in reach. Side rails up X2. Pulse ox on. NIBP on. Door closed. Noise minimized. Warm blanket given. 13:14 No provider procedures requiring assistance completed. ld1 17:43 Patient did not have IV access during this emergency room visit. ld1 Administered Medications: 13:14 Drug: Tylenol 1000 mg Route: PO; ld1 14:29 Follow up: Response: No adverse reaction ld1 13:14 Drug: Ondansetron 4 mg Route: PO; ld1 14:29 Follow up: Response: No adverse reaction ld1 14:29 Drug: Decadron (dexamethasone) 10 mg Route: IM; Site: right deltoid; ld1 14:29 Follow up: Response: No adverse reaction ld1 Outcome: 17:17 Discharge ordered by . lance 17:43 Discharged to home ambulatory. ld1 17:43 Condition: stable 17:43 Discharge instructions given to patient, Instructed on discharge instructions, follow up and referral plans. Demonstrated understanding of instructions, follow-up care. 17:43 Patient left the ED. ld1 Signatures: Alec Kc PA PA jmm Rivera, Mary mr SiddiquiSaadia, RN RN vg1 Vanessa Davis RN RN ld1
[2021-03-01 17:49] VITALS: TEMP 98.4
[2021-03-01 17:54] VITALS: BP 163/100; O2SAT 100
== END 2021-03-01 17:43 | disposition home or self-care (01) ==
LOC: ER 12:31
DX: U07.1 COVID-19 (principal); Z88.0 Allergy status to penicillin
CPT/HCPCS: 96372; 99283; U0003; J1100

== ENCOUNTER 2021-11-16 21:32 | Inpatient (IN) | payer OTHER ==
--- OUTSIDE RECORDS SUMMARY | 2021-11-16 21:35 | XMS REPORT | Continuity of Care Document ---
:1980 Author Organization [facility] t Address [address] [place] [address] Care Team Providers Name Role Phone SYSTEM, NOT IN Primary Care Physician Unavailable Annie SARAH Attending Clinician Unavailable RIMMA Attending Clinician Unavailable Attending Clinician Unavailable Singer OKEEFE Attending Clinician Doctor Unassigned, Name Attending Clinician Unavailable Charleen LAL, A Attending Clinician Noe VILLASEÑOR Attending Clinician Unavailable Wellington GAMBOA Attending Clinician Michelle Messina Attending Clinician Eric DIRECTOR OF BUSINESS OPERATIONS, G Attending Clinician Nicolle MCNAMARA S Attending Clinician Payers Payer Name Policy Type Policy Number Effective Date Expiration Date Galindo rios [employer] [id number] [id number] OUT OF NETWORK 00:00:00 Problems Condition Condition Condition Status Onset Resolution Last Treating Co mments Source Name Details Category Date Date Treatment Clinician Date Papanicola Papanicola Disease Active Overview : Univers ou smear ou smear 1-18 Formattin ity of of cervix of cervix 00:00: [place] of [place] with low with low 00 note Medica l grade grade might be Branch squamous squamous different intraepith intraepith from the catherine alexander original. lesion lesion With (LGSIL) (LGSIL) HPV+.USMAN 1 noted on bx. Will need cotesting in 12 months (06/2022). Cervical Cervical Disease Active Overview: Un lian high risk high risk 1-07 Formattin i ty of human human 00:00: g of this [place] 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 (HPV) irus (HPV) might be Branch DNA test DNA test different positive positive from the original. Noted on 06/2021 Obesity Obesity Disease Active Univers (BMI (BMI 1-05 ity of 30-39.9) 30-39.9) 00:00: [place] 00 Medical Branch Elevated Elevated Disease Active Unive rs blood blood 1-05 ity of pressure pressure 00:00: [place] reading reading 00 Medical without without Branch diagnosis diagnosis of of hypertensi hypertensi on on Decreased Decreased Disease Active Uni vers libido libido 1-05 ity of 00:00: [place] 00 Medical Branch History of History of Disease Active U nivers bilateral bilateral 8-11 ity of tubal tubal 00:00: [place] ligation ligation 00 Medica l Branch Allergies, Adverse Reactions, Alerts Allergy Allergy Status Severity Reaction(s) Onset Inactive Treating Comm ents Source Name Type Date Date Clinician Penicill Propensi Active Rash Univer s ins ty to 8-10 ity of adverse 00:00: [place] reaction 00 Medical s Branch PENICILL Drug Active Rash Univers INS Class 8-10 ity of 00:00: [place] 00 Medical Branch Penicill Propensi Active Rash Univer s ins ty to 8-10 ity of adverse 00:00: [place] reaction 00 Medical s Branch Social History Social Habit Start Date Stop Date Quantity Comments Source Exposure to Not sure [facility] SARS-CoV-2 [place] [facility] (event) Branch Alcohol intake 2021-11-16 2021-11-[address] Ex-dr[address] [facility] 00:00:00 00:00:00 (finding) [facility] Tobacco use and 2019-01-27 2019-01-27 Never used Universit y of exposure 00:00:00 00:00:00 [facility] Sex Ass[birth year] At [birth year] Universit y of 00:00:00 00:00:00 [facility] Smoking Status Start Date Stop Date Source Never smoker [facility] Branch Medications Ordered Filled Start Stop Current Ordering Indication Dosage Frequency Signature Comments Components Source Medication Medication Date Date Medication? Clinician (SIG) Name Name ondansetron 2021- No 4mg 4 mg, Slow Univers (ZOFRAN 11-16 IV Push, ity of (PF)) 13:15: 12:27 ONCE, 1 [place] injection 4 00 :00 dose, On Medi sebastien mg Fri11/16/21 Branch at 0815, Routine NaCl 0.9% 2021- No 1000mL at 999 Uni vers (NS) bolus 11-1603 mL/hr, ity of infusion 12:15: 14:17 1,000 mL, Javi as 1,000 mL 00 :00 IV Medical Infusion, Branch ONCE, 1 dose, On Fri11/16/21 at 0715, STAT sodium Yes 5mL 5 mL, Univers chloride 11-16 Intravenou ity o f (NS) 12:12: s, PRN, [place] injection 5 11 Starting Medi sebastien mL on Fri Branch 11/16/21 at 0712, Until Discontinu ed, Routine, IV line flushing lisinopriL 0 Yes 10mg Take 10 mg U nivers 10 mg 3-11 by mouth ity of tablet 09:09: daily. [address] lisinopriL 0 Yes 10mg Take 10 mg U nivers 10 mg 3-11 by mouth ity of tablet 09:09: daily. [address] lisinopriL 0 Yes 10mg Take 10 mg U nivers 10 mg 3-11 by mouth ity of tablet 09:09: daily. [address] multivitami Yes Take by Un lian n (DAILY 2-25 mouth. ity of VITAMIN 09:47: [place] ORAL) [address] [place] [address] ferrous 2021-0 Yes Take by Univer s sulfate 2-25 mouth. ity of (IRON ORAL) 09:47: [address] multivitami 0 Yes Take by Un lian n (DAILY 2-25 mouth. ity of VITAMIN 09:47: [place] [address] ferrous 0 Yes Take by Univer s sulfate 2-25 mouth. ity of (IRON ORAL) 09:47: [address] multivitami Yes Take by Un lian n (DAILY 2-25 mouth. ity of VITAMIN 09:47: [place] ORAL) [address] [place] [address] ferrous Yes Take by Goldy s sulfate 2-25 mouth. ity of (IRON ORAL) 09:47: [address] Immunizations Ordered Filled Immunization Date Status Comments Sourc e Immunization Name Name Td 2018-04-13 Completed University 00:00:00 [facility] Td 2018-04-13 Completed University 00:00:00 [facility] 2018-04-13 Completed University 00:00:00 [facility] Vital Signs Vital Name Observation Time Observation Value Comments Source Systolic blood 2021-11-16 12:10:00 145 mm[Hg] Univer sity of [facility] Diastolic blood 2021-11-16 12:10:00 75 mm[Hg] Unive rsity of [facility] Heart rate 2021-11-16 12:10:00 76 /min [facility] Body temperature 2021-11-16 12:10:00 37.11 Yanira [facility] Respiratory rate 2021-11-16 12:10:00 18 /min [facility] Body weight 2021-11-16 12:10:00 94.348 kg [facility] BMI 2021-11-16 12:10:00 35.70 kg/m2 [facility] Oxygen saturation in 2021-11-16 12:10:00 99 /min [facility] Arterial blood by [facility] Pulse oximetry Branch Systolic blood 2021-08-24 14:46:00 136 mm[Hg] Univer sity of [facility] Diastolic blood 2021-08-24 14:46:00 87 mm[Hg] Unive rsity of [facility] Heart rate 2021-08-24 14:46:00 64 /min [facility] Body temperature 2021-08-24 14:46:00 35.78 Yanira [facility] Respiratory rate 2021-08-24 14:46:00 18 /min [facility] Body height 2021-08-24 14:46:00 162.6 cm [facility] Body weight 2021-08-24 14:46:00 94.575 kg [facility] BMI 2021-08-24 14:46:00 35.79 kg/m2 [facility] Procedures Procedure Date / Time Performed Performing Clinician [facility] e US ABDOMEN LIMITED 2021-11-16 13:38:25 Tessie [facility] LIPASE 2021-11-16 12:16:00 Singer [facility] COMP. METABOLIC PANEL 2021-11-16 12:16:00 Singer [facility] ([id number]) [facility] LIPID PANEL 2021-11-16 12:16:00 [facility] ([id number])(TOTAL [facility] CHOLESTEROL, TRIGLYCERIDES, HDL) CBC WITH DIFF 2021-11-16 12:16:00 Schwartz, [facility] URINALYSIS 2021-11-16 12:16:00 Singer [facility] POCT TEST 2021-11-16 12:16:00 Singer [facility] [place] [facility] POCT TEST 2021-11-16 12:14:00 Singer [facility] [place] [facility] CONSENT/REFUSAL FOR 2021-11-16 12:05:02 Doctor Unassigned, No Un [facility] DIAGNOSIS AND Name [facility] TREATMENT SURGICAL PATHOLOGY 2021-08-24 15:15:00 [facility] POCT TEST 2021-08-24 14:51:[address] [facility] Plan of Care Planned Activity Planned Date Details Comments Source Encounters Start End Encounter Admission Attending Care Care Encounter Source Date/Time Date/Time Type Type Clinicians Facility Department ID 2022-06-25 2022-06-25 Outpatient Annie SARAH [facility] [id number] [facility] 10:30:00 10:30:00 DARRELL [id number] [facility] 2021-12-18 2021-12-18 Outpatient Annie SHANKS [facility] [id number] [facility] 13:30:00 13:30:00 ANA [id number] [facility] 2021-11-16 2021-11-16 Emergency X , [facility] ERT [id number] Univers 07:14:00 09:17:00 TESSIE fung [facility] 2021-11-16 2021-11-16 [facility] [id number] Univers 07:14:00 09:17:00 Tessie ALEXANDER [id number] i ty of [place] 42.7.2.686 [facility] [id number] [facility] [address] [place] 2021-11-16 2021-11-16 Orders Doctor EMMA [id number] Univers 00:00:00 00:00:00 Only Unassigned, HARRISON [id number] ity of [facility] 42.7.2.686 Javi as [id number] [facility] [address] [place] 2021-08-24 2021-08-24 [facility] [id number] Univers 08:45:00 09:53:30 Visit Meghann Liu [employer] [id number]68 Javi as MATERNAL [phone] Med ical & CHILD [address] [place] [address] 2021-08-24 2021-08-24 [facility] [id number] Univers 08:45:00 09:53:30 MEGHANN mitchell [facility] 2021-08-21 2021-08-21 Outpatient Annie SARAH [facility] [id number] Univers 00:00:00 23:59:00 DARRELL mitchell [facility] 2020-08-27 2020-08-27 Emergency [facility] [id number] 14:00:00 14:43:00 Santiago Alexander [id number] [place] 4.2.7.2.686 [place] [id number] [facility] 2020-08-27 2020-08-27 Orders Doctor EMMA [id number] 00:00:00 00:00:00 Only Unassigned, [place] 350.1.13.10 Gwynn [facility] 4.2.7.2.686 [id number] 2019-11-09 2019-11-09 Emergency Dorian Davey [facility] [id number] 18:43:24 19:41:00 Michelle Alexander 350.1.13.10 [place] 4.2.7.2.686 [place] [id number] 2019-02-09 2019-02-09 Emergency [facility] [id number] 18:23:25 19:26:00 Jade Alexander 350.1.13.10 [place] 4.2.7.2.686 [place] [id number] 2019-01-27 2019-01-27 Office [facility] [id number] 09:07:03 10:06:37 Visit [facility] [id number] Surgical 4.2.7.2.686 Special [phone] es 198 Martha Results Test Description Test Time Test Comments Results Result Comments Source LIPID PANEL (22127)(TOTAL CHOLESTEROL, TRIGLYCERIDES, HDL) 12:53:45 Test Item Value Reference Range Interpretation Comme nts CHOL (test code = 1874386630) 127 mg/dL 120-200 HDL (test code = 6600844168) 45 mg/dL >50 L HDLC RATIO (test code = See_Comment [Au tomated message] The 8773561617) system which [employer] nerated this result transmit jem reference range: <=4.5. T he reference range was not u sed to interpret this result as normal/abnormal . TRIG (test code = 8798093868) 62 mg/dL 30-170 LDL CHOL (test code = 17479-5) 70 mg/dL See_Comment [Automated message] The system which [employer] nerated this result transmit jem reference range: <=160. T he reference range was not u sed to interpret this result as normal/abnormal . VLDL (test code = 8637519280) 12 mg/dL 5-60 Lab Interpretation (test code = Abnormal 33011-6) [facility] [id number] 12:53:25 Test Item Value Reference Range Interpretation Comments NA (test code = 141 mmol/L 135-145 5010284557) K (test code = 4.1 mmol/L 3.5-5.0 3127678604) CL (test code = 103 mmol/L 98-108 8034348034) CO2 TOTAL (test code = 26 mmol/L 23-31 8343638919) AGAP (test code = 2-16 0734714147) BUN (test code = 14 mg/dL 7-23 4000039429) GLUCOSE (test code = 121 mg/dL 70-110 H 4773193010) CREATININE (test code = 0.65 mg/dL 0.50-1.04 4759558905) TOTAL BILI (test code = 0.2 mg/dL 0.1-1.4 6228175909) CALCIUM (test code = 9.8 mg/dL 8.6-10.6 2156763125) T PROTEIN (test code = 7.2 g/dL 6.3-8.2 1591187754) ALBUMIN (test code = 4.6 g/dL 3.5-5.0 3269740459) ALK PHOS (test code = 49 U/L 34-122 2261767462) ALTv (test code = 14 U/L 5-35 1742-6) AST(SGOT) (test code = 18 U/L 13-40 2084839574) eGFR (test code = mL/min/1.73m2 7469606756) ATIYA (test code = ATIYA) Association of Glomerular Filtration Rate (GFR) and Staging of Kidney Disease* + --+ --+ ------+| GFR (mL/min/1.73 m2) ?| With Kidney Damage ?| ?Without Kidney Damage+ --------+ --------+ +| ?>90 ?| ?Stage one ?| ? Normal ?+ ---+ ---+ -------+| ?60-89 ?| ?Stage two ?| ? Decreased GFR ? + --+ --+ ------+| ?30-59 ?| ?Stage three ?| ? Stage three ? + --+ --+ ------+| ?15-29 ?| ?Stage four ? | ? Stage four ?+ ---+ ---+ -------+| ?<15 (or dialysis) ? ?| ?Stage five ? | ? Stage five ?+ ---+ ---+ -------+ *Each stage assumes the associated GFR level has been in effect for at least three months. ?Stages 1 to 5, with or without kidney disease, indicate chronic kidney disease. Notes: Determination of stages one and two (with eGFR >59mL/min/1.73 m2) requires estimation of kidney damage for at least three months as defined by structural or functional abnormalities of the kidney, manifested by either:Pathological abnormalities or Markers of kidney damage (including abnormalities in the composition of the blood or urine or abnormalities in imaging tests). Lab Interpretation Abnormal (test code = 22102-2) [facility], [id number] 12:53:04 Test Item Value Reference Range Interpretation Comments LIPASE (test code = 8326256695) 83 U/L 0-220 Lab Interpretation (test code = Normal 13647-8) [facility] with [id number] 12:33:42 Test Item Value Reference Range Interpretation Comments WBC (test code = See_Comment [Automated 6690-2) message] The sy stem which generated this result transmitted reference range : 4.30 - 11.10 10*3/?L. The reference range was not used to interpret this result as normal/abnormal . RBC (test code = See_Comment [Automated 339-8) message] The sy stem which generated this result transmitted reference range : 3.93 - 5.25 10*6/?L. The reference range was not used to interpret this result as normal/abnormal . HGB (test code = 10.3 g/dL 11.6-15.0 L 718-7) HCT (test code = 34.1 % 35.7-45.2 L 4544-3) MCV (test code = 79.1 fL 80.6-95.5 L 787-2) MCH (test code = 23.9 pg 25.9-32.8 L 785-6) MCHC (test code = 30.2 g/dL 31.6-35.1 L 786-4) RDW-SD (test code = 40.3 fL 39.0-49.9 30813-3) RDW-CV (test code = 14.0 % 12.0-15.5 788-0) PLT (test code = See_Comment H [Automated 777-3) message] The sy stem which generated this result transmitted reference range : 166 - 358 10*3/ ?L. The reference r shanda was not used to interpret this result as normal/abnormal . MPV (test code = 8.9 fL 9.5-12.9 L 34012-4) NRBC/100 WBC (test See_Comment [Automat ed code = 0181961565) message] The system which generated this result transmitted reference range : 0.0 - 10.0 /100 WBCs. The refer ence range was not u sed to interpret th is result as normal/abnormal . NRBC x10^3 (test code <0.01 See_Comment [Auto mated = 7292636937) message] The s ystem which generated this result transmitted reference range : 10*3/?L. The reference range was not used to interpret this result as normal/abnormal . GRAN MAT (NEUT) % 68.0 % (test code = 770-8) IMM GRAN % (test code 0.30 % = 1090385293) LYMPH % (test code = 24.4 % 736-9) MONO % (test code = 5.0 % 5905-5) EOS % (test code = 2.0 % 713-8) BASO % (test code = 0.3 % 706-2) GRAN MAT x10^3(ANC) 6.34 10*3/uL 1.88-7.09 (test code = 6922936274) IMM GRAN x10^3 (test 0.03 10*3/uL 0.00-0.06 code = 1724141025) LYMPH x10^3 (test code 2.28 10*3/uL 1.32-3.29 = 731-0) MONO x10^3 (test code 0.47 10*3/uL 0.33-0.92 = 742-7) EOS x10^3 (test code = 0.19 10*3/uL 0.03-0.39 711-2) BASO x10^3 (test code 0.03 10*3/uL 0.01-0.07 = 704-7) Lab Interpretation Abnormal (test code = 83833-7) [facility] [id number] 12:16:00 Test Item Value Reference Range Interpretation Comments POCT PREG (test code = 1605) negative On board controls acceptable with present C Line (test code = 3574) POCT PREG LOT # (test code = 3575) [id number] POCT PREG TEST DATE (test code = 3576) Lab Interpretation (test code = Normal 99012-4) [facility] [id number] 12:14:00 Test Item Value Reference Range Interpretation Comments POCT PREG (test code = 1605) negative On board controls acceptable with present C Line (test code = 3574) POCT PREG LOT # (test code = 3575) [id number] POCT PREG TEST DATE (test code = 3576) Lab Interpretation (test code = Normal 71934-7) [facility] [id number] 14:51:00 Test Item Value Reference Range Interpretation Comments POCT PREG (test code = 1605) Negative On board controls acceptable with C Yes Line (test code = 3574) POCT PREG LOT # (test code = 3575) POCT PREG TEST DATE (test code = 3576) [facility] [id number] 04:47:15 Test Item Value Reference Range Interpretation Comments CHOLESTEROL (test 119 MG/DL <200 code = 2210) TRIGLYCERIDES (test 54 MG/DL <150 code = 2232) HDL CHOLESTEROL (test 44 MG/DL >39 code = 2220) CALC LDL CHOL (test 62 MG/DL <100 NOTE: C ALCULATED LDL code = 2237) IS BASED ON LEBRON-BOO METHOD WHICHINCLUDES ADJUSTABLE TRIGLYCERIDE:VL DL CHOLESTEROL RAT IO.THIS FACTOR VARIES B Y MEASURED TRIGLY CERIDE AND NON-HDLCHOL ESTEROL CONCENTRATIONS WITH INCREASED CALCU LATED LDL SEENIN HIGH ER TRIGLYCERIDE OR LOWER NON-HDL SPECIME NS. FOR MOREINFORMATION , SEE CLIENT ANNOUNCE MENT AT [email or web address] RISK RATIO LDL/HDL 1.41 RATIO <3.22 (test code = 2238) COMPREHENSIVE METABOLIC [id number] 04:47:15 Test Item Value Reference Range Interpretation Comments GLUCOSE (test code = 97 MG/DL 70-99 2217) BUN (test code = 13 MG/DL 6-20 2207) CREATININE (test 0.63 MG/DL 0.60-1.30 code = 221) eGFR (2020 CKD-EPI) 114 >60 (test code = 57282) ML/MIN/1.73 CALC BUN/CREAT (test 21 RATIO 6-28 code = 2235) SODIUM (test code = 144 MEQ/L 446-539 6541) POTASSIUM (test code 4.2 MEQ/L 3.5-5.4 = 2227) CHLORIDE (test code 103 MEQ/L 95-107 = 2214) CARBON DIOXIDE (test 25 MEQ/L 19-31 code = 220) CALCIUM (test code = 9.9 MG/DL 8.5-10.5 2208) PROTEIN, TOTAL (test 8.0 G/DL 6.1-8.3 code = 2228) ALBUMIN (test code = 4.8 G/DL 3.5-5.2 2200) CALC GLOBULIN (test 3.2 G/DL 1.9-3.7 code = 224) CALC A/G RATIO (test 1.5 RATIO 1.0-2.6 code = 223) BILIRUBIN, TOTAL 0.2 MG/DL See_Comment [Automated message] (test code = 2206) The syste m which generated this result transmit jem reference range : <=1.2. The refe rence range was not u sed to interpret th is result as normal/abnormal . ALKALINE PHOSPHATASE 49 U/L 40-113 (test code = 2203) AST (test code = 17 U/L 9-40 2217) ALT (test code = 19 U/L 5-40 2218) HIV 1/2 4TH GEN, RFLX [id number] 03:35:20 Test Item Value Reference Range Interpretation Comments HIV 1/2 4TH GEN, RFLX CONF (test NON-REACTIVE NON-REACTIVE code = 3514) HEPATITIS PANEL, [id number] 03:35:20 Test Item Value Reference Range Interpretation Comments HEPATITIS A IgM (test NON-REACTIVE NON-REACTIVE code = 69602) HEPATITIS B CORE IgM NON-REACTIVE NON-REACTIVE (test code = 4644) HEPATITIS B SURF AG NON-REACTIVE NON-REACTIVE (test code = 8669) HEPATITIS C ANTIBODY NON-REACTIVE NON-REACTIVE (test code = 5252) INTERPRETATION (NOTE) Hepatiti s A HEPATITIS A: (test serology shows no code = 2552) evidence of acu te hepatitis A. INTERPRETATION (NOTE) Hepatiti s B HEPATITIS B: (test serology shows no code = 12542) evidence of ac wilberto hepatitis B and no indication of exposure to hepatitis B vir us in the previous si xto eight months. INTERPRETATION (NOTE) Hepatiti s C HEPATITIS C: (test serology shows no code = 85027) evidence of ex posure to hepatitisC v irus at this time. It can take up to 12 months after exposure tothe hepatitis C vir us for antibodies to become detectab le in the blood i n certain patient s. UNLESS OTHE RWISE INDICATED, ALL TESTING PERFORM ED ATCLINICAL PATH [facility]LOGY LABORATORIES, I [place]. [address] [place], [place] [address] LOGGING WORKER: KAELA FARRELL M.D. CLIA NUMBER [id number] CAP ACCREDITATION N O. [id number] CBC W/AUTO DIFF WITH [id number] 02:38:15 Test Item Value Reference Range Interpretation Comments WBC (test code = 9.5 K/UL 3.5-11.0 1001) RBC (test code = 5.24 M/UL 3.80-5.40 1002) HEMOGLOBIN (test code 12.8 G/DL 11.5-15.5 = 1003) HEMATOCRIT (test code 40.3 % 34.0-45.0 = 1004) MCV (test code = 76.9 fL 80.0-99.0 L 1005) MCH (test code = 24.4 PG 25.0-33.0 L 1006) MCHC (test code = 31.8 G/DL 31.0-36.0 1007) RDW (test code = 16.7 % 11.5-15.0 H 1038) NEUTROPHILS (test 61.6 % code = 1008) LYMPHOCYTES (test 31.5 % code = 1010) MONOCYTES (test code 4.6 % = 1011) EOSINOPHILS (test 1.7 % code = 1012) BASOPHILS (test code 0.4 % = 1013) IMMATURE GRANULOCYTES 0.2 % (test code = 1036) NUCLEATED RBCS (test 0.0 /100 See_Comment [Autom ated code = 1065) WBC'S message] The sy stem which generated this result transmitted reference range : 0.0. The refere nce range was not u sed to interpret th is result as normal/abnormal . PLATELET COUNT (test 369 K/UL 130-400 code = 1015) ABSOLUTE NEUTROPHILS 5.87 K/UL 1.50-7.50 (test code = 1066) ABSOLUTE LYMPHOCYTES 3.00 K/UL 1.00-4.00 (test code = 1067) ABSOLUTE MONOCYTES 0.44 K/UL 0.20-1.00 (test code = 1068) ABSOLUTE EOSINOPHILS 0.16 K/UL 0.00-0.50 (test code = 1040) ABSOLUTE BASOPHILS 0.04 K/UL 0.00-0.20 (test code = 1069) ABS IMMATURE 0.02 K/UL 0.00-0.10 GRANULOCYTES (test code = 1020) ABS NUCLEATED RBCS 0.00 K/UL 0.00-0.11 (test code = 57452)"
[2021-11-16] MEDS ORDERED: ONDANSETRON 4 MG/2 ML VIAL ONE (23:04)
[2021-11-16] MEDS ORDERED: MORPHINE 4 MG/ML SYR ONE (23:04)
[2021-11-16 23:16] LABS: Urine Blood Trace-intact (Negative); Urine Glucose Negative (Negative); Urine Protein Negative (Negative); Urine Specific Gravity 1.025 (1.005-1.030)
[2021-11-16 23:38] LABS: Absolute Lymphocytes (CBC) 3.2 K/uL (0.7-4.9); Hematocrit 35.5 % (36.0-45.0); Lymphocytes % 27.5 % (15.3-44.8); MPV 7.2 fL (7.6-11.3); RBC Red Blood Cell Count 4.62 M/uL (3.86-4.86)
[2021-11-16 23:48] LABS: Albumin 4.1 g/dL (3.4-5.0); Bilirubin Total 0.3 mg/dL (0.2-1.0); Potassium 3.4 mmol/L (3.5-5.1); Protein, Total 8.2 g/dL (6.4-8.2)
--- NOTE | 2021-11-17 01:12 | ER ---
Nurse's Notes [facility] Name: Meghann Bob Age: 41 yrs Sex: Female : 1980 Arrival Date: 11/16/2021 Time: 21:35 Bed 5 Private MD: Diagnosis: Acute cholecystitis;Upper abdominal pain, unspecified Presentation: 11/16 22:39 Chief complaint: Patient states: she was seen in [place] ED this morning and diagnosed bb with gallstones but they did not give her any pain medication and it is still hurting. Coronavirus screen: At this time, the client does not indicate any symptoms associated with coronavirus-19. Ebola Screen: No symptoms or risks identified at this time. Initial Sepsis Screen: Does the patient meet any 2 criteria? No. Patient's initial sepsis screen is negative. Does the patient have a suspected source of infection? No. Patient's initial sepsis screen is negative. Risk Assessment: Do you want to hurt yourself or someone else? Patient reports no desire to harm self or others. Onset of symptoms was November 16, 2021. 22:39 Method Of Arrival: Ambulatory bb 22:39 Acuity: ANGELO 3 bb Triage Assessment: 22:50 General: Appears in no apparent distress. Behavior is calm, cooperative, appropriate tw5 for age. 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 - Social history:: Smoking status: Patient denies any tobacco usage or history of. Screenin:50 Abuse screen: Denies threats or abuse. Denies injuries from another. Nutritional tw5 screening: No deficits noted. Tuberculosis screening: No symptoms or risk factors identified. Fall Risk None identified. Assessment: 22:48 General: Reports "I [facility] in [place] and they said that I had a gallstone the tw5 size of a dime. The only thing they did was an ultrasound. I cannot take the pain. I cannot even lay on my right side that is how bad the pain is.". Pain: Complains of pain in epigastric area Pain currently is 10 out of 10 on a pain scale. Cardiovascular: Heart tones S1 S2 present. Respiratory: Airway is patent Trachea midline Respiratory effort is even, unlabored, Respiratory pattern is regular. GI: Bowel sounds present X 4 quads. Abd is soft X 4 quads Abdomen is tender to palpation in epigastric area and right upper quadrant. Vital Signs: 22:39 BP 139 / 105; Pulse 71; Resp 16 S; Temp 98.9(O); Pulse Ox 100% on R/A; Weight 92.99 kg bb (R); Height 5 ft. 4 in. (162.56 cm) (R); Pain 10/10; 22:48 BP 143 / 101; Pulse 74; Resp 18; Pulse Ox 99% on R/A; Pain 10/10; tw5 23:10 Pulse 74; Resp 18; Pulse Ox 94% on R/A; Pain 2/10; tw5 23:11 Pain 2/10; tw5 22:39 Body Mass Index 35.19 (92.99 kg, 162.56 cm) ED Course: 21:35 Patient arrived in ED. ja2 22:07 Alec Kc PA is PHCP. [facility] 22:07 Mike Romero DO is Attending Physician. [facility] 22:40 Triage completed. bb 22:40 Arm band placed on Patient placed in an exam room, on a stretcher, on pulse oximetry. bb 22:46 Fabi Kitchen is Primary Nurse. tw5 23:06 CBC with Diff Sent. tw5 23:07 Awaiting lab results, Awaiting CT Scan. tw5 23:07 CMP Sent. tw5 23:07 Lipase Sent. tw5 23:07 Initial lab(s) drawn, by la, sent to lab. Urine collected: clean catch specimen, tw5 cloudy, Amount Voided: 150mL. Inserted saline lock: 20 gauge in right antecubital area, using aseptic technique. Blood collected. 11/17 00:35 CT Abd/Pelvis - IV Contrast Only In Process Unspecified. EDMS 01:11 Sandy Kent MD is Hospitalizing Provider. ms3 04:06 No provider procedures requiring assistance completed. Patient admitted, IV remains in tw5 place. 04:25 Placed in gown. Bed in low position. Call light in reach. Side rails up X2. Client tw5 placed on continuous cardiac and pulse oximetry monitoring. NIBP monitoring applied. Door closed. Noise minimized. Moved to private room. Warm blanket given. Verbal reassurance given. 04:25 COVID-19 SARS RT PCR (Document "Date of Onset" if Symptomatic) Sent. tw5 04:25 COVID swab sent to lab. tw5 Administered Medications: 11/16 23:06 Drug: morphine 4 mg Route: IVP; Infused Over: 4 mins; Site: right antecubital; tw5 23:11 Follow up: Pain 2/10 Adult; Response: No adverse reaction; Pain is decreased; RASS: tw5 Alert and Calm (0) 23:06 Drug: Zofran (Ondansetron) 4 mg Route: IVP; Site: right antecubital; tw5 23:11 Follow up: Response: No adverse reaction tw5 11/17 01:40 Drug: Zosyn (piperacillin-tazobactam) 3.375 grams Route: IVPB; Infused Over: 60 mins; tw5 Site: right antecubital; 04:12 Follow up: Response: No adverse reaction; IV Status: Completed infusion; IV Intake: tw5 100ml Medication: 04:07 VIS not applicable for this client. tw5 Intake: 04:12 IV: 100ml; Total: 100ml. tw5 Outcome: 01:11 Decision to Hospitalize by Provider. ms3 04:06 Admitted to ER Hold. Please see [facility] for further documentation. tw5 04:06 Condition: stable 04:06 Instructed on the need for admit. 11:04 Admitted to OR accompanied by nurse, via stretcher. evans 11:04 Patient left the ED. evans Signatures: Dispatcher [employer] EDMS Alec Kc PA PA jmm Ballard, Brenda, RN RN bb Sims, Marcus, DO DO ms3 Anton KarlaFabi Stevens tw5 Radha Angulo RN RN ha
--- NOTE | 2021-11-17 01:12 | EDPHYS ---
Physician Documentation [facility] Name: Meghann Bob Age: 41 yrs Sex: Female : 1980 Arrival Date: 11/16/2021 Time: 21:35 Bed 5 Private MD: ED Physician Mike Romero HPI: 11/16 22:21 This 41 yrs old Female presents to ER via Ambulatory with complaints of Abdominal Pain. jmm 22:21 The patient presents with abdominal pain. Onset: The symptoms/episode began/occurred jmm gradually. The symptoms radiate to Associated signs and symptoms: Pertinent positives: nausea and vomiting. The symptoms are described as achy, sharp. Modifying factors: The symptoms are alleviated by nothing, the symptoms are aggravated by nothing. Patient was seen at another ER diagnoses with cholelithiasis. Continues to have pain. . 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 - Social history:: Smoking status: Patient denies any tobacco usage or history of. ROS: 22:21 Constitutional: Negative for fever, chills, and weight loss, Cardiovascular: Negative jmm for chest pain, palpitations, and edema, Respiratory: Negative for shortness of breath, cough, wheezing, and pleuritic chest pain. 22:21 Abdomen/GI: Positive for abdominal pain. 22:21 All other systems are negative. Exam: 22:21 Constitutional: This is a well developed, well nourished patient who is awake, alert, jmm and in no acute distress. Head/Face: atraumatic. Eyes: EOMI, no conjunctival erythema appreciated ENT: Moist Mucus Membranes Neck: Trachea midline, Supple Chest/axilla: Normal chest wall appearance and motion. Cardiovascular: Regular rate and rhythm. No edema appreciated Respiratory: Normal respirations, no respiratory distress appreciated 22:21 Back: Normal ROM Skin: General appearance color normal MS/ Extremity: Moves all extremities, no obvious deformities appreciated, no edema noted to the lower extremities Neuro: Awake and alert Psych: Behavior is normal, Mood is normal, Patient is cooperative and pleasant 22:21 Abdomen/GI: Inspection: abdomen appears normal, Bowel sounds: normal, Palpation: soft, moderate abdominal tenderness, in the right upper quadrant and left upper quadrant. Vital Signs: 22:39 BP 139 / 105; Pulse 71; Resp 16 S; Temp 98.9(O); Pulse Ox 100% on R/A; Weight 92.99 kg bb (R); Height 5 ft. 4 in. (162.56 cm) (R); Pain 10/10; 22:48 BP 143 / 101; Pulse 74; Resp 18; Pulse Ox 99% on R/A; Pain 10/10; tw5 23:10 Pulse 74; Resp 18; Pulse Ox 94% on R/A; Pain 2/10; tw5 23:11 Pain 2/10; tw5 22:39 Body Mass Index 35.19 (92.99 kg, 162.56 cm) bb MDM: 22:21 Patient medically screened. [facility] 11/17 02:02 Differential diagnosis: cholecystitis, Cholelithiasis, non-specific abd pain. Data ms3 reviewed: vital signs, nurses notes, lab test result(s), radiologic studies, CT scan. Data interpreted: Pulse oximetry: on room air is 94 %. Interpretation: acceptable. Counseling: I had a detailed discussion with the patient and/or guardian regarding: the historical points, exam findings, and any diagnostic results supporting the discharge/admit diagnosis, lab results, radiology results, the need for further work-up and treatment in the hospital. ED course: Discussed case with Dr Gray and he recommends observation with hospitalist. Discussed case with WILLOW Desai and she accepts patient.. 11/16 22:21 Order name: CBC with Diff; Complete Time: 23:49 [facility] 11/16 22:21 Order name: CMP; Complete Time: 23:49 [facility] 11/16 22:21 Order name: Lipase; Complete Time: 23:49 [facility] 11/16 23:16 Order name: Urine Dipstick-Ancillary; Complete Time: 23:18 [facility] 11/17 00:42 Order name: CREATININE WHOLE BLOOD; Complete Time: 01:07 [facility] 11/17 02:02 Order name: COVID-19 SARS RT PCR (Document "Date of Onset" if Symptomatic) ms3 11/16 22:21 Order name: IV Saline Lock; Complete Time: 23:06 [facility] 11/16 22:21 Order name: Labs collected and sent; Complete Time: 23:06 [facility] 11/16 22:21 Order name: CT Abd/Pelvis - IV Contrast Only [facility] 11/16 22:22 Order name: Urine Test (obtain specimen); Complete Time: 23:15 [facility] 11/16 22:42 Order name: Urine Dipstick-Ancillary (obtain specimen); Complete Time: 23:15 [facility] Administered Medications: 11/16 23:06 Drug: morphine 4 mg Route: IVP; Infused Over: 4 mins; Site: right antecubital; tw5 23:11 Follow up: Pain 2/10 Adult; Response: No adverse reaction; Pain is decreased; RASS: tw5 Alert and Calm (0) 23:06 Drug: Zofran (Ondansetron) 4 mg Route: IVP; Site: right antecubital; tw5 23:11 Follow up: Response: No adverse reaction tw5 11/17 01:40 Drug: Zosyn (piperacillin-tazobactam) 3.375 grams Route: IVPB; Infused Over: 60 mins; tw5 Site: right antecubital; 04:12 Follow up: Response: No adverse reaction; IV Status: Completed infusion; IV Intake: tw5 100ml Disposition: 02:04 Co-signature as Attending Physician, Mike QUESADA/[employer]'s history reviewed, patient ms3 interviewed, and examined. HPI: 41 yo female with RUQ abdominal pain x 1 day. Presented to OSH and US revealed Cholelithiasis My personal exam of patient reveals: Abdominal exam significant for RUQ tenderness, LCTAB, Cardiac- regular rate and rhythm, skin without diaphoresis or rashes. I agree with assessment and care plan and confirm the diagnosis (es) above. I reviewed the patient's care provided by the Advanced Practice Provider and agree with the diagnosis and care plan. I personally saw the patient and performed a substantive portion of the visit, including all aspects of the History/Exam/Medical Decision making. Please see my note within the JONATHAN note for my [id number] evaluation.. Chart complete. Disposition Summary: 11/17/21 01:11 Hospitalization Ordered Provider: Sandy Kent ms3 Condition: Stable ms3 Problem: new ms3 Symptoms: are unchanged ms3 Bed/Room Type: Standard ms3 Hospitalization Status: Inpatient Admission(11/17/21 01:20) bb Location: [facility] ER HOLD(11/17/21 01:27) bb Room Assignment: ERHOLD-(11/17/21:) bb Diagnosis - Acute cholecystitis ms3 - Upper abdominal pain, unspecified ms3 Forms: - Medication Reconciliation Form ms3 - SBAR form ms3 Signatures: Dispatcher [employer] EDAlec Aguilera PA PA jmm Ballard, Brenda, RN RN bb Mike Romero DO DO ms3 Fabi Kitchen tw5 Juanita Tariq PA PA sb3 Corrections: (The following items were deleted from the chart) 01: 01:11 Observation ms3 bb : 01:11 Telemetry/MedSurg (observation) ms3 bb : 01:11 ms3 bb
[2021-11-17] MEDS ORDERED: NA CHLORIDE 0.9% 100 ML ONE ×2 (01:31→08:39)
[2021-11-17] MEDS ORDERED: PIPERACIL/TAZO 3.375 GM VIAL IV ONE ×3 (01:32→17:34)
--- NOTE | 2021-11-17 01:57 | P.HP ---
Certification for Inpatient Patient admitted to: Inpatient With expected LOS: <2 Midnights Patient will require the following post-hospital care: None Practitioner: I am a practitioner with admitting privileges, knowledge of patient current condition, hospital course, and medical plan of care. Services: Services provided to patient in accordance with Admission requirements found in Title 42 Section 412.3 of the Code of Federal Regulations Patient History Date of Service: 11/17/21 Reason for admission: Cholecystitis History of Present Illness: Patient is a 41-year-old female with hypertension who presented to the ED with complaints of right upper quadrant pain and N/V. Patient states that she went to the [place] ER this morning and was diagnosed with gallstones after having an ultrasound. She was discharged with a prescription for Zofran. She returned to the ED tonight, as her pain had increased. Labs significant for WBC 11.[address] showed gallbladder thickening and mild distention and recommended ultrasound. ED did not have ultrasound available and contacted Dr. Gray who wishes for patient to be admitted to hospitalist and he will consult. Allergies Penicillins Allergy (Intermediate, Verified 09/22/11 22:04) Itching/Hives/Rash Home medications list reviewed: Yes - Past Medical/Surgical History Diabetic: No -: Hypertension -: Tubal ligation Psychosocial/ Personal History: Patient lives at home with her . - Family History Mother -: Diabetes Father -: Diabetes - Social History Smoking Status: Never smoker Alcohol use: No CD- Drugs: No Caffeine use: Yes Place of Residence: Home Review of Systems Gastrointestinal: Nausea, Vomiting, Abdominal Pain Physical Examination - Physical Exam General: Alert, In no apparent distress HEENT: Atraumatic, PERRLA, EOMI, Sclerae nonicteric Neck: Supple, 2+ carotid pulse no bruit, No LAD, Without JVD or thyroid abnormality Respiratory: Clear to auscultation bilaterally, Normal air movement Cardiovascular: Regular rate/rhythm, Normal S1 S2 Gastrointestinal: Normal bowel sounds, Soft and benign, Non-distended, No guarding, Tenderness Musculoskeletal: No tenderness Integumentary: No rashes Neurological: Normal speech, Normal strength at 5/5 x4 extr, Normal tone, Normal affect - Studies Laboratory Data (last 24 hrs) 11/16/21 23:08: Sodium 139, Potassium 3.4 L, BUN 14, Creatinine 0.95, Glucose 102, Total Bilirubin 0.3, AST 8 L, ALT 21, Alkaline Phosphatase 56, Lipase 88 11/16/21 23:08: WBC 11.6 H, Hgb 10.8 L, Hct 35.5 L, Plt Count 423 H Assessment and Plan - Problems (Diagnosis) (1) Acute cholecystitis Current Visit: Yes Status: Acute (2) Hypertension Current Visit: Yes Status: Acute Qualifiers: Hypertension type: primary hypertension Qualified Code(s): I10 - Essential (primary) hypertension (3) Hypokalemia Current Visit: Yes Status: Acute - Plan -Zosyn and IVF. NPO -Replete potassium per protocol -General surgery consulted -Morphine PRN pain and zofran PRN nausea -Reconcile and continue home medications -Lovenox for VTE ppx Discharge Plan: Home Plan to discharge in: 48 Hours - Advance Directives Does patient have a Living Will: No Does patient have a Durable POA for Healthcare: No - Code Status/Comfort Care Code Status Assessed: Yes (Full) Critical Care: No Time Spent Managing Pts Care (In Minutes): 50
[2021-11-17] MEDS ORDERED: ACETAMINOPHEN 500 MG TAB PO PRN (04:08)
[2021-11-17] MEDS ORDERED: ONDANSETRON 4 MG/2 ML VIAL IV PRN (04:08)
[2021-11-17] MEDS ORDERED: MORPHINE 4 MG/ML SYR IV PRN (04:08)
[2021-11-17] MEDS: NA CHLORIDE 0.9% 1,000 ML IV SCH ×2 (04:08→13:38)
[2021-11-17] MEDS ORDERED: DIPHENHYDRAMINE 50 MG/ML VIAL IV PRN (04:08)
[2021-11-17] MEDS ORDERED: NA CHLORIDE 0.9% 1,000 ML ONE (04:23)
[2021-11-17] MEDS ORDERED: MORPHINE 4 MG/ML SYR ONE (08:38)
[2021-11-17] MEDS ORDERED: ENOXAPARIN 40 MG/0.4 ML SQ ONE (08:38)
[2021-11-17] MEDS ORDERED: ONDANSETRON 4 MG/2 ML VIAL ONE ×3 (08:38→13:17)
[2021-11-17] MEDS: PIPER TAZO 3.375 GM in NA CHLORIDE 0.9% 100 ML IV SCH ×2 (08:46→17:51)
[2021-11-17] MEDS ORDERED: ENOXAPARIN 40 MG/0.4 ML SQ SCH (09:00)
[2021-11-17] MEDS ORDERED: propofoL 200 MG/20 ML VIAL IV ONE (11:02)
[2021-11-17] MEDS ORDERED: LIDOCAINE 1% MPF 5 ML VIAL ONE (11:03)
[2021-11-17] MEDS ORDERED: FENTANYL CITR 100 MCG/2 ML ONE ×2 (11:04→12:09)
[2021-11-17] MEDS ORDERED: ROCURONIUM 50 MG/5 ML VIAL IV ONE (11:04)
[2021-11-17] MEDS: BUPIVACAINE 0.25% PF 10 ML VIAL ONE ×2 (11:06→11:45)
[2021-11-17] MEDS ORDERED: Ringers Lactate 1,000 ML IV ONE (11:09)
[2021-11-17] MEDS ORDERED: SUCCINYLCHOLINE 20 MG/ML (10 ML) IV ONE (11:16)
[2021-11-17] MEDS ORDERED: KETOROLAC 30 MG/ML INJ ONE (11:38)
[2021-11-17] MEDS ORDERED: dexAMETHasone 10 MG/ML VIAL ONE (11:38)
[2021-11-17] MEDS ORDERED: GLYCOPYRROLATE 0.2 MG/ML SYR ONE (11:47)
[2021-11-17] MEDS ORDERED: NEOSTIGMINE 1 MG/ML -10 ML VIAL ONE (11:48)
--- NOTE | 2021-11-17 13:00 | P.OP ---
Preoperative diagnosis: Cholecystitis with cholelithasis Postoperative diagnosis: Cholecystitis with cholelithasis Primary procedure: Laparoscopic cholecystectomy with ICG Cholangiography Anesthesia: GETA + Local Estimated blood loss: <5cc Specimen: gallbladder Findings: distended hydropic gallbladder, short cystic duct Complications: None Transferred to: Recovery Room Condition: Good
[2021-11-17] MEDS ORDERED: HYDROMORPHONE HCL 1 MG/ML INJ ONE (13:17)
[2021-11-17] MEDS ORDERED: HYDROCODONE/APAP 5/325 MG TAB PO PRN (13:22)
[2021-11-17 13:25] VITALS: O2SAT 95
[2021-11-17] MEDS ORDERED: NA CHLORIDE 0.9% 50 ML ONE (17:35)
--- NOTE | 2021-11-17 23:40 | OP ---
Date of Procedure: 11/17/2021 Surgeon: Walt Gray MD, Preoperative Diagnosis: Cholecystitis with cholelithiasis. Postoperative Diagnosis: Cholecystitis with cholelithiasis. Procedure Performed: Laparoscopic cholecystectomy with indocyanine green cholangiography. Anesthesia: General endotracheal plus local 0.25% Marcaine. Estimated Blood Loss: Less than 5 mL. Specimen: Gallbladder. Findings: Distended hydropic gallbladder and a short cystic duct. Complications: None. Disposition: The patient was transferred to the recovery room in good condition. Procedure In Detail: After informed consent was obtained, the patient was brought to the operating r oom, prepped and draped in the usual sterile fashion. After adequate anesthesia was achieved, a supr aumbilical area was anesthetized with 0.25% Marcaine sharply incised, 5 mm 0-degree optical trocar wa s introduced in the abdomen without evidence of complication. Insufflation was obtained to 15 mmHg a t this time, there was no injury to vital structures upon entry into the abdomen. Three additional t rocars were placed; 1 in the epigastrium, 2 in the right upper quadrant and right lower quadrants, al l these were similarly anesthetized, sharply incised. A 5 mm trocar was placed under direct visualiz ation without any evidence of complication. The umbilical trocar was then upsized to a 12 mm under d irect visualization without any evidence of complication. Patient positioned head up right-side up p osition. Ratcheted grasper was used to grasp the patient's gallbladder, which was very tense and hyd ropic. A decompression needle was brought on the field and used to decompress the gallbladder and th e gallbladder fundus. After the gallbladder was appropriately decompressed, it was grasped, elevated , and placed towards the patient right shoulder, dissection continued down toward the Denis's pouc h of the gallbladder. Electrocautery was used to dissect significant scar tissue off the anterior rush rface of the gallbladder from the omental attachments. After this was performed, the ICG cholangiogr aphy was performed to help identify the cystic common duct confluence and to see the course of the co mmon duct using indocyanine green cholangiography. At this point, dissection continued to encircle 2 structures, skeletonized and identified as both the cystic duct and cystic artery. Therefore, the c ritical view was obtained at this point. After these structures were skeletonized, doubly on the pro ximal side and singly on the distal side of both cystic ducts and cystic artery. After this was comp leted, the structures were ligated with Endoshears. The gallbladder was then removed from the hepati c fossa without evidence of complication. There was significant hydropic appearance of the gallbladd er throughout the procedure and this fluid was suctioned out as the procedure progressed. The gallbl adder was then placed in the EndoCatch bag, removed from the umbilical trocar and sent off for pathol ogic examination. No additional hemostatic measures required. The abdomen was copiously irrigated a nd suctioned out completely dry. No hemostatic measures required at the end of the procedure and the clips were found to be in good anatomic position without any evidence of leakage. The patient was p ositioned back in the neutral position. The umbilical trocar site was closed using a Benjamin-Lawrence suture passer with an 0 Vicryl interrupted fashion. Good approximation of tissues. The abdomen was then completely desufflated under direct visualization without any evidence of complication. The re maining trocars were removed. All skin incisions were copiously irrigated and closed with a 4-0 [place] cryl fashion. Dermabond placed over top. The patient tolerated the procedure without evidence of co mplication, transferred to PACU in good condition. All counts were correct at the end of the case. LM/TATIANA Voice ID: [id number] Report ID: [id number]
[2021-11-18] MEDS: PIPER TAZO 3.375 GM in NA CHLORIDE 0.9% 100 ML IV SCH (01:00)
[2021-11-18] MEDS ORDERED: PIPERACIL/TAZO 3.375 GM VIAL IV ONE (01:19)
[2021-11-18] MEDS ORDERED: NA CHLORIDE 0.9% 100 ML ONE (01:19)
[2021-11-18 06:01] VITALS: TEMP 97.2; BMI 34.8
[2021-11-18 08:15] LABS: Absolute Lymphocytes (CBC) 1.2 K/uL (0.7-4.9); Hematocrit 33.2 % (36.0-45.0); Lymphocytes % 7.6 % (15.3-44.8); MPV 6.8 fL (7.6-11.3); RBC Red Blood Cell Count 4.33 M/uL (3.86-4.86)
[2021-11-18 08:35] LABS: Albumin 3.6 g/dL (3.4-5.0); Bilirubin Total 0.3 mg/dL (0.2-1.0); Potassium 3.7 mmol/L (3.5-5.1); Protein, Total 7.6 g/dL (6.4-8.2)
[2021-11-18 09:25] VITALS: BP 127/72
[2021-11-18 10:54] LABS: Anisocytosis 1+; Blood Morphology Comment NOTED (NOT SEEN); Hypochromasia 1+; Ovalocytes 1+; Platelet Estimate INCR; Poikilocytosis 1+; White Blood Cell Scan OK (OK)
--- NOTE | 2021-11-18 10:58 | P.PN ---
Subjective Date of Service: 11/18/21 Chief Complaint: Cholecystitis Subjective: Improving (patient has no complaints, tolerating diet, ambulatory) Physical Examination - Vital Signs Temperature: 97.2 F Blood Pressure: 127/72 Pulse: 81 Respirations: 18 Pulse Ox (%): 99 - Physical Exam General: Alert, In no apparent distress, Cooperative Respiratory: Clear to auscultation bilaterally Gastrointestinal: Other (soft, mild appropriate TTP, ND, incisoins clean) Assessment And Plan - Current Problems (Diagnosis) (1) Acute cholecystitis Current Visit: Yes Status: Acute Plan: s/p laparoscopic cholecystectomy - doing well - ok to DC from surgical standpoint
--- NOTE | 2021-11-19 12:58 | RAD REPORT ---
EXAM DESCRIPTION: CT - Abdomen Pelvis W Contrast - 11/17/2021 6:36 am CLINICAL HISTORY: Abdominal pain, acute, nonlocalized COMPARISON: None Available. TECHNIQUE: CT of the abdomen and pelvis performed following IV administration of iodinated contras t. This exam was performed according to our departmental dose-optimization program, which includes au tomated exposure control, adjustment of the mA and/or kV according to patient size and/or use of iter ative reconstruction technique. FINDINGS: Lung Bases: The visualized lung bases are clear. Bones: Minimal endplate spondylosis. Abdomen: Liver: The liver has normal size and density. No intrahepatic biliary dilatation. Gallbladder: Distention and wall thickening of the gallbladder. Spleen, Pancreas, and Adrenal Glands: The spleen, pancreas, and adrenal glands are unremarkable. Kidneys: No hydronephrosis or obstructing calculus. Vasculature: The aorta and IVC have normal caliber and position. The portal vein is patent. The pro ximal visceral and renal arteries are patent. Stomach: The stomach and duodenum have normal course. Other: No free intraperitoneal air. No free fluid or lymphadenopathy. Pelvis: Bladder: Urinary bladder is unremarkable. Bowel: No dilated loops of large or small bowel. Appendix: Normal appendix. Pelvis: Fibroid uterus IMPRESSION: 1. Distention and wall thickening of the gallbladder. These findings could be seen wit h acute cholecystitis. Right upper quadrant ultrasound may be helpful. 2. Fibroid uterus. Electronically signed by: Lucian Bernal 11/17/2021 12:44 AM CDT Due to temporary technical issues with the PACS/Fluency reporting system, reports are being signed by the in house radiologist without review as a courtesy to ensure prompt reporting. The interpreting r adiologist is fully responsible for the content of the report.
--- NOTE | 2021-11-28 20:38 | CON ---
Date of Consultation: 11/17/2021 Brief History Of Present Illness: The patient is a 41-year-old female with a history of hypertension , who presents to the ER with complaints of right upper quadrant pain, nausea, vomiting. She went to the ER at [place] early in the morning, was diagnosed with gallstones via an ultrasound. She was d ischarged with a prescription for Zofran and returned to the ER to [facility] later on with the same worsening of her symptoms and complaints. She states that it was worse with greasy fatty meals and a s such, she came to the emergency room with the above-stated complaints. Past Medical History: Significant hypertension and tubal ligation. Past Surgical History: Includes a tubal ligation. Allergies: TO PENICILLIN. Home Medications: None. Social History: She denies smoking, alcohol, or recreational drug use. Review of Systems: Ten-point review of systems other than HPI, denies. Physical Examination: General: At the time of my examination; she is awake, alert, oriented. Psychiatric: She is appropriate, conversive. HEENT: Normocephalic. Sclerae anicteric. Mucous membranes are moist. Oropharynx is clear. Neck: Supple. No JVD. Chest: Expansion and excursion. Cardiovascular: Regular rate and rhythm. Pulmonary: Clear to auscultation bilaterally. Abdomen: Soft with positive right upper quadrant tenderness to palpation. Positive Serrano sign. Po sitive guarding. The remainder of abdominal exam is unremarkable. Musculoskeletal/Extremities: No clubbing, cyanosis, or edema. Skin: Warm and dry. Laboratory Data: Revealed a white blood cell count of 15.2, hemoglobin was 10.1, hematocrit 33.2, pl atelet count was 430, neutrophils are 88%. Her sodium was 148, potassium 3.7, chloride 106, carbon d ioxide 27, BUN 8, creatinine 0.7, glucose is 125, total bilirubin 0.3, AST 23, ALT 48, alkaline phosp hatase 58. She had imaging performed, which included a CT abdomen and pelvis on 11/16/2021, CT scan officially read as distention and wall thickening of the gallbladder. Findings could be seen with ac wilberto cholecystitis, fibroid uterus. Right upper quadrant ultrasound may be helpful, specifically the liver has normal size and density. No intrahepatic biliary ductal dilatation. Gallbladder was diste nded with wall thickening. Assessment And Plan: This is a 41-year-old female, who presents with signs and symptoms of acute sebastien culous cholecystitis. 1.IV fluid hydration. 2.Antibiotic coverage with Zosyn 3.375 IV q.8. 3.I have explained the risks, benefits, and alternatives of laparoscopic possible open cholecystecto my including, but not limited to bleeding, infection, damage to surrounding tissues, injury to bile d ucts and intestines, need for further operation and procedures. The patient will receive indocyanine green preoperatively. She could have a reaction to this medication as well. All questions were ans wered. The patient agrees to proceed as indicated. Thank you for this interesting consult. LM/TATIANA Voice ID: [id number] Report ID: [id number]
== END 2021-11-18 13:00 | disposition home or self-care (01) | DRG 418 ==
LOC: ER 21:32 → ERHOLD 11-17 01:54 → 2ND-WC 11-17 12:48
PROVIDERS: ADMIT Hospitalist; ATTEND Hospitalist
PROC: BF50200 Other Imaging of Bile Ducts using Fluorescing Agent, Indocyanine Green Dye, Intraoperative (ICD-10-PCS; 2021-11-17)
PROC: 0FT44ZZ Resection of Gallbladder, Percutaneous Endoscopic Approach (ICD-10-PCS; principal; 2021-11-17 11:30)
DX: K80.00 Calculus of gallbladder with acute cholecystitis without obstruction (principal); K82.1 Hydrops of gallbladder; Q44.5 Other congenital malformations of bile ducts; I10 Essential (primary) hypertension; Z88.0 Allergy status to penicillin; E87.6 Hypokalemia
CPT/HCPCS: 36415; 74177; 80053; 81003; 82565; 83690; 85025; 88304; 96365; 96366; 96375; 99285; J0330; J1100; J1170; J1650; J2405; J2543; J2704; J2710; J3010; J7030; J7120; Q9967; U0003

== ENCOUNTER 2022-04-21 09:17 | Emergency (ER) | payer OTHER ==
--- OUTSIDE RECORDS SUMMARY | 2022-04-21 09:23 | XMS REPORT | Continuity of Care Document ---
:1980 Author Organization [facility] t Address [address] [place] [address] Care Team Providers Name Role Phone SYSTEM, PCP NOT IN Primary Care Physician Unavailable DOCTOR UNASSIGNED, NO NAME Attending Clinician Unavailable ISAMAR SARAH Attending Clinician Unavailable CHIQUITA CRENSHAW Attending Clinician Unavailable Chiquita Crenshaw MD Attending Clinician Doctor Unassigned, [place] Attending Clinician Unavailable TESSIE SCHWARTZ Attending Clinician Unavailable Tessie Schwartz DO Attending Clinician MEGHANN VILLASEÑOR Attending Clinician Unavailable Meghann Tsai Attending Clinician Isamar Barroso Attending Clinician ALEKSANDRA LONDONO Attending Clinician Unavailable Aleksandra Bui Attending Clinician Giovanna Gomez Attending Clinician CARLOS STEPHENS Attending Clinician Unavailable GIOVANNA GUERRERO Attending Clinician Unavailable Santiago Paris MD Attending Clinician Dorian Messina Attending Clinician Jade Reyes NP Attending Clinician Nicolle MCNAMARA Chuckie S Attending Clinician JIA KERR Attending Clinician Unavailable JIA KERR Attending Clinician Unavailable MARIA G GERMAIN Attending Clinician Unavailable MARIA G GERMAIN Attending Clinician Unavailable HATTIE PASCUAL Admitting Clinician Unavailable TESSIE SCHWARTZ Admitting Clinician Unavailable KEVIN MARION Admitting Clinician Unavailable MARIA G GERMAIN Admitting Clinician Unavailable Payers Payer Name Policy Type Policy Number Effective Date Expiration Date S gabriel [facility] [id number] 2020 00:00:00 MEDICAID PENDING PENDING 2020 00:00:00 [employer] [id number] OUT OF NETWORK 00:00:00 Problems Condition Condition [...] 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 Will need cotesting in 12 months (06/2022). Cervical Cervical Disease Active Overview: Un lian high risk high risk 1-07 Formattin i ty of human human 00:00: g of this [place] 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 [...] 8-10 ity of adverse 00:00: [place] reaction Medical s Branch PENICILL Drug Active Rash Univers INS Class 8-10 ity of 00:00: [place] 00 Medical Branch Penicill Propensi Active Rash Univer s ins ty to 8-10 ity of adverse 00:00: [place] reaction Medical s Branch Penicill Propensi Active Rash Univer s ins ty to 8-10 ity of adverse 00:00: [place] reaction 00 Medical s Branch Social History Social Habit Start Date Stop Date Quantity Comments Source Exposure to 2022-04-08 2022-04-18 Not sure [facility] SARS-CoV-2 00:00:00 20:46:[address] [facility] [place] [place] (event) D Hanis Alcohol intake 2022-04-18 2022-04-18 Ex-drinker [facility] 00:00:00 00:00:00 (finding) [facility] Tobacco use and 2019-01-27 2019-01-27 Smokeless tobacco Un iversity of exposure 00:00:00 00:00:00 non-user [facility] Sex Assigned At [birth year] ALMAS Rosario 00:00:00 [facility]00 [facility] Smoking Status Start Date Stop Date Source Never smoked tobacco [facility] Medications Ordered Filled Start Stop Current Ordering Indication Dosage Frequency Signature Comments Components Source Medication Medication Date Date Medication? Clinician (SIG) Name Name acetaminoph 2021-06 No 1000mg 1,000 mg, Univers en 06-19 Oral, ity of (TYLENOL) 02:23: 02:23 ONCE, 1 [place] tablet 00 :00 dose, On Medical 1,000 mg Bozena Branch 04/18/22 at 2130, ROLANDA ibuprofen 2021-06 Yes [id number] 800mg Take 1 Univers 800 mg 1-03 tablet by ity of tablet 00:00: mouth [place] 00 every 8 Medical (eight) Branch hours as needed for Alternate with [place] for pain scale 4-6 or Temp > 38.5 C. ondansetron 2021-1 Yes [id number] 4mg Take 1 Univers (ZOFRAN) 4 1-03 tablet by ity of mg tablet 00:00: mouth [place] 00 every 8 Medical (eight) Branch hours as needed for Nausea and Vomiting (N/V). ondansetron 2021-0 2- No 4mg 4 mg, Slow Univers (ZOFRAN 11-16- IV Push, ity of (PF)) 13:15: 12:27 ONCE, 1 [place] injection 4 00 :00 dose, On Medi sebastien mg Fri11/16/21 Branch at 0815, Routine NaCl 0.9% 2021- No 1000mL at 999 Uni vers (NS) bolus 11-16 06-03 mL/hr, ity of infusion 12:15: 14:17 1,000 mL, Javi as 1,000 mL 00 :00 IV Medical Infusion, Branch ONCE, 1 dose, On Fri11/16/21 at 0715, STAT sodium 2021-0 Yes 5mL 5 mL, Univers chloride 11-16 Intravenou ity o f (NS) 12:12: s, PRN, [place] injection 5 11 Starting Medi sebastien mL on Fri Branch 11/16/21 at 0712, Until Discontinu ed, Routine, IV line flushing ondansetron 2-0 Yes [id number] 4mg Take 1 Univers 4 mg 6-03 tablet by ity of disintegrat 00:00: mouth [place] ing tablet 00 every 8 Medica l (eight) Branch hours as needed for Nausea and Vomiting (N/V). ondansetron 2022-0 Yes [id number] 4mg Take 1 Univers 4 mg 6-03 tablet by ity of disintegrat 00:00: mouth [place] ing tablet 00 every 8 Medica l (eight) Branch hours as needed for Nausea and Vomiting (N/V). lisinopriL 2022-0 Yes 10mg Take 10 mg U nivers 10 mg 3-11 by mouth ity of tablet 09:09: daily. [address] lisinopriL 2022-0 Yes 10mg Take 10 mg U nivers 10 mg 3-11 by mouth ity of tablet 09:09: daily. [address] lisinopriL 2022-0 Yes 10mg Take 10 mg U nivers 10 mg 3-11 by mouth ity of tablet 09:09: daily. [address] lisinopriL 0 Yes 10mg Take 10 mg U nivers 10 mg 3-11 by mouth ity of tablet 09:09: daily. [address] lisinopriL Yes 10mg Take 10 mg U nivers 10 mg 3-11 by mouth ity of tablet 09:09: daily. [address] multivitami Yes Take by Uni vers n (DAILY 2-25 mouth. ity of VITAMIN 09:47: [place] ORAL) [address] [place] [address] ferrous Yes Take by Univers sulfate 2-25 mouth. ity of (IRON ORAL) 09:47: [address] multivitami Yes Take by Uni vers n (DAILY 2-25 mouth. ity of VITAMIN 09:47: [place] ORAL) [address] [place] [address] ferrous Yes Take by Univers sulfate 2-25 mouth. ity of (IRON ORAL) 09:47: [address] multivitami Yes Take by Uni vers n (DAILY 2-25 mouth. ity of VITAMIN 09:47: [place] ORAL) [address] [place] [address] ferrous Yes Take by Univers sulfate 2-25 mouth. ity of (IRON ORAL) 09:47: [address] multivitami Yes Take by Uni vers n (DAILY 2-25 mouth. ity of VITAMIN 09:47: [place] ORAL) [address] [place] [address] ferrous Yes Take by Univers sulfate 2-25 mouth. ity of (IRON ORAL) 09:47: [address] multivitami Yes Take by Uni vers n (DAILY 2-25 mouth. ity of VITAMIN 09:47: [place] ORAL) [address] [place] [address] Branch ferrous 0 Yes Take by Univers sulfate 2-25 mouth. ity of (IRON ORAL) 09:47: [address] Immunizations Ordered Filled Immunization Date Status Comments [facility] Immunization Name Name Td 2018-04-13 Completed University 00:00:00 [facility] Td 2018-04-13 Completed University of 00:00:00 [facility] Td 2018-04-13 Completed University of 00:00:00 [facility] Td 2018-04-13 Completed University of 00:00:00 [place] [facility] Td 2018-04-13 Completed University of 00:00:00 [facility] Vital Signs Vital Name Observation Time Observation Value Comments Source Systolic blood 2022-04-19 03:00:00 149 mm[Hg] Univer sity of pressure [place] [facility] Diastolic blood 2022-04-19 03:00:00 96 mm[Hg] Unive rsity of pressure [place] [facility] Heart rate 2022-04-19 03:00:00 102 /min Universi ty of [place] [facility] Respiratory rate 2022-04-19 03:00:00 16 /min Univ ersity of [place] [facility] Oxygen saturation in 2022-04-19 03:00:00 99 /min University of Arterial blood by [place] Ateo sebastien Pulse oximetry Branch Body temperature 2022-04-19 01:48:00 37.94 Yanira [facility] ersity of [place] [facility] Body height 2022-04-19 01:48:00 162.6 cm Universi ty of [place] [facility] Body weight 2022-04-19 01:48:00 92.216 kg Universi ty of [place] [facility] BMI 2022-04-19 01:48:00 34.90 kg/m2 Universi ty of [place] [facility] Systolic blood 2021-11-16 12:10:00 145 mm[Hg] Univer sity of pressure [place] [facility] Diastolic blood 2021-11-16 12:10:00 75 mm[Hg] Unive rsity of pressure [place] [facility] Heart rate 2021-11-16 12:10:00 76 /min Universi ty of [place] [facility] Body temperature 2021-11-16 12:10:00 37.11 Yanira Univ ersity of [place] [facility] Respiratory rate 2021-11-16 12:10:00 18 /min Univ ersity of [place] [facility] Body weight 2021-11-16 12:10:00 94.348 kg Universi ty [facility] [place] [facility] BMI 2021-11-16 12:10:00 35.70 kg/m2 Universi ty of [place] [facility] Oxygen saturation in 2021-11-16 12:10:00 99 /min University of Arterial blood by [place] Ateo sebastien Pulse oximetry Branch Systolic blood 2021-08-24 14:46:00 136 mm[Hg] Univer sity of pressure [place] [facility] Diastolic blood 2021-08-24 14:46:00 87 mm[Hg] [facility] of pressure [facility] Heart rate 2021-08-24 14:46:00 64 /min [facility] Body temperature 2021-08-24 14:46:00 35.78 Yanira [facility] Respiratory rate 2021-08-24 14:46:00 18 /min [facility] Body height 2021-08-24 14:46:00 162.6 cm [facility] Body weight 2021-08-24 14:46:00 94.575 kg [facility] BMI 2021-08-24 14:46:00 35.79 kg/m2 [facility] Procedures Procedure Date / Time Performed Performing Clinician [facility] COMP. METABOLIC PANEL 2022-04-19 02:19:00 Chiquita Crenshaw [facility] ([id number]) [facility] CBC WITH DIFF 2022-04-19 02:19:00 Chiquita Crenshaw [facility] URINALYSIS 2022-04-19 02:19:00 Chiquita Crenshaw [facility] RAPID INFLUENZA A/B 2022-04-19 02:19:00 Chiquita Crenshaw [facility] COVID-19 (ID NOW RAPID 2022-04-19 02:19:00 Chiquita Crenshaw [facility] TESTING) [facility] NOTICE OF PRIVACY 2022-04-19 01:40:16 Doctor Unassigned, No [facility] PRACTICES Name [facility] CONSENT/REFUSAL FOR 2022-04-19 01:39:34 Doctor Unassigned, No [facility] DIAGNOSIS AND Name [facility] TREATMENT US ABDOMEN LIMITED 2021-11-16 13:38:25 [facility] [place] LIPASE 2021-11-16 12:16:00 Singer Tessie [facility] COMP. METABOLIC PANEL 2021-11-16 12:16:00 Tessie Schwartz [facility] ([id number]) Medical D [place] LIPID PANEL 2021-11-16 12:16:[address] [facility] ([id number])(TOTAL Medical Branch CHOLESTEROL, TRIGLYCERIDES, HDL) CBC WITH DIFF 2021-11-16 12:16:00 Schwartz, [facility] URINALYSIS 2021-11-16 12:16:00 Schwartz, [facility] POCT TEST 2021-11-16 12:16:00 Singer [facility] POCT TEST 2021-11-16 12:14:00 Singer [facility] CONSENT/REFUSAL FOR 2021-11-16 12:05:02 Doctor Unassigned, No Un [facility] DIAGNOSIS AND Name Medical Branch TREATMENT SURGICAL PATHOLOGY 2021-08-24 15:15:00 Meghann Villaseñor [facility] POCT TEST 2021-08-24 14:51:00 Meghann Villaseñor [facility] Encounters Start End Encounter Admission Attending Care Care Encounter Source Date/Time Date/Time Type Type Clinicians Facility Department ID 2021-04-16 Emergency [facility] [id number] Univers 23:42:01 ity of [facility] 2021-04-15 Emergency [facility] [id number] Univers 05:52:24 ity of [facility] 2021-04-12 Emergency [facility] [id number] Univers 22:19:27 it of [facility] 2007-02-25 Inpatient P DOCTOR [facility] JORDAN [id number] Univers 00:00:00 UNASSIGNED, 3 ity of NO [facility] 2022-04-18 2022-04-18 Emergency X [facility] ERT [id number] Univers 20:51:00 23:07:00 GAELOISELI ity [facility] 2022-04-18 2022-04-18 Emergency [facility] [id number] Univers 20:51:00 23:07:00 Chiquita ALEXANDER [id number] ity [facility] 4.2.7.2.686 [facility] [phone] [place] [id number] Branch 2022-04-18 2022-04-18 Orders Doctor [facility] [id number] Univers 00:00:00 00:00:00 Only Unassigned, [place] [id number] ity of [place] [facility] 4.2.7.2.686 Javi as [id number] [address] 2021-11-16 2021-11-[address] [facility] ERT [id number] Univers 07:14:00 09:17:00 TESSIE fung of [facility] 2021-11-16 2021-11-[address] [facility] [id number] Univers 07:14:00 09:17:00 Tessie ALEXANDER [id number] i ty [facility] 4.2.7.2.686 [place] [facility] [phone] [place] 541804 D Hanis 2021-11-16 2021-11-16 Orders Doctor [facility] [id number] [id number] Univers 00:00:00 00:00:00 Only Unassigned, [place] [id number] ity of [place] [facility] 4.2.7.2.686 Javi as [id number] [address] 2021-08-24 2021-08-24 Outpatient Annie VILLASEÑOR [facility] [id number] Univers 08:45:00 09:53:30 MEGHANN mitchell [facility] 2021-08-24 2021-08-[address] [facility] [id number] Univers 08:45:00 09:53:30 Visit Meghann Liu X RAY SERVICE ENGINEER [id number] ity [facility] 4.2.7.2.686 Javi as MATERNAL [phone] [facility] ical & CHILD [address] [place] [address] 2021-08-24 2021-08-24 Outpatient Annie VILLASEÑOR [facility] [id number] Univers 08:45:00 09:53:30 MEGHANN mitchell [facility] 2021-08-24 2021-08-24 Outpatient Annie VILLASEÑOR [facility] [id number] Univers 08:45:00 09:53:30 MEGHANN mitchell [facility] 2021-08-24 2021-08-24 Outpatient Annie VILLASEÑOR [facility] [id number] Univers 08:45:00 08:45:00 MEGHANN antonieta tran [facility] 2021-08-21 2021-08-21 Outpatient Annie RUSTE [facility] [id number] Univers 06:34:51 23:59:00 ISAMAR fung o [facility] 2021-08-21 2021-08-21 [facility] [address] [facility] [id number] Univers 06:34:51 23:59:00 Encounter Isamar THORNTON [id number] ity of [facility] 4.2.7.2.686 [place] C[place] AT [id number] [address] 2021-08-21 2021-08-21 Outpatient Annie SARAH [facility] [id number] Univers 00:00:00 23:59:00 ISAMAR tran [facility] 2021-08-21 2021-08-21 Outpatient Annie SARAH [facility] [id number] Univers 00:00:00 23:59:00 ISAMAR tran [facility] 2021-08-21 2021-08-21 Outpatient Annie RUSTE [facility] [id number] Univers 00:00:00 00:00:00 ISAMAR tran [facility] 2021-08-21 2021-08-21 Outpatient Annie SARAH [facility] [id number] Univers 00:00:00 00:00:00 ISAMAR tran [facility] 2021-08-21 2021-08-21 [facility] [id number] Univers 00:00:00 00:00:00 ISAMAR tran [facility] 2021-08-10 2021-08-[address] [facility] [id number] Univers 10:00:00 10:30:00 Visit Meghann Liu X RAY SERVICE ENGINEER [id number] ity of REGIONAL 4.2.7.2.686 Javi as MATERNAL [id number] [facility] ical & CHILD [address] [place] [address] 2021-08-10 2021-08-10 Outpatient R CHARLEEN [facility] [id number] Univers 10:00:00 10:00:00 MEGHANN tran stephen [facility] 2021-08-10 2021-08-10 Outpatient R CHARLEEN [facility] [id number] Univers 10:00:00 10:00:00 MEGHANN mitchell [facility] 2021-08-09 2021-08-[address] [facility] [id number] Univers 00:00:00 00:00:00 Meghann Liu X RAY SERVICE ENGINEER [id number] ity of [facility] 4.2.7.2.686 Javi as MATERNAL [id number] [facility] ical & CHILD [address] [place] [address] 2021-08-08 2021-08-[address] [facility] [id number] Univers 12:32:00 14:29:00 [facility]DRA [facility] 2021-08-08 2021-08-08 Emergency [facility] [id number] Univers 12:32:00 14:29:00 Aleksandra S [place] 350.1.13.10 i [facility] 4.2.7.2.686 [place] [id number] [facility] 084 D Hanis 2021-08-08 2021-08-[address] [facility] [id number] Univers 12:32:00 14:29:00 [facility]DRA [facility] [facility] 2021-07-10 2021-07-10 Orders Doctor CARTER [id number] [id number] Univers 00:00:00 00:00:00 Only Unassigned, [place] 350.1.13.10 ity of [facility] 4.2.7.2.686 Javi as [phone] [facility] 009 Branch 2021 2021 Outpatient R KEARA [facility] [id number] Univers 10:00:00 10:31:40 ISAMAR fung o f [facility] 2021 2021 Outpatient R [facility] [id number] Univers 10:00:00 10:00:00 ity [facility] 2021-07-03 2021-07-[address] [facility] [id number] Univers 00:00:00 00:00:00 Isamar Valencia X RAY SERVICE ENGINEER [id number] ity of [address]686 Javi as MATERNAL [id number] [facility] & [address] 2021-06-20 2021-06-20 [facility] [id number] Univers 14:00:00 14:58:40 ISAMAR fung o f [facility] 2021-06-20 2021-06-20 Office [place] Isamar [facility] 1.2.840 .114 [id number] Univers 14:00:00 14:58:40 Visit Giovanna Guerrero X RAY SERVICE ENGINEER 350.1.13.10 ity of [address]686 Javi as MATERNAL [id number] [facility] & [address] 2021-06-20 2021-06-20 Outpatient [facility] [id number] Univers 14:00:00 14:58:40 ISAMAR fung o f [facility] 2021-06-20 2021-06-20 Orders Doctor EMMA 1.2.840.114 [id number] Univers 00:00:00 00:00:00 Only Unassigned, [place] 350.1.13.10 ity of [place] [address]686 Javi as [id number] [address] 2021-05-01 2021-05-01 Outpatient R KAT [facility] [id number] Univers 09:30:00 09:30:00 CARLOS fung [facility] 2021-03-28 2021-03-28 [facility] [id number] Univers 09:45:00 09:45:00 GIOVANNA fung [facility] 2021-03-04 2021-03-04 Emergency X BRY [facility] ERT [id number] Univers 12:42:00 17:00:00 ALEKSANDRA fung [facility] 2021-03-042021-03-04 Emergency [place], [facility] [id number] Univers 12:42:00 17:00:00 Aleksandra Medley Martha 350.1.13.10 i ty of [place] 4.2.7.2.686 [facility] [id number] [facility] 084 Branch 2021-03-04 2021-03-04 Orders Doctor CARTER 1.2.840.114 [id number] Univers 00:00:00 00:00:00 Only Unassigned, [place] 350.1.13.10 ity of [place] [facility] 4.2.7.2.686 Javi as [id number] [facility] 009 Branch 2020-08-27 2020-08-27 Emergency [place], [facility] [id number] Univers 14:00:00 14:43:00 Santiago Alexander 350.1.13.10 i ty of [place] 4.2.7.2.686 [facility] [id number] [place] 541804 Branch 2020-08-27 2020-08-[address] [facility] [id number] 14:00:00 14:43:00 Santiago Alexander 350.1.13.10 [place] 4.2.7.2.686 [place] [id number] 2020-08-27 2020-08-27 Orders Doctor CARTER 1.2.840.114 [id number] Univers 00:00:00 00:00:00 Only Unassigned, [place] 350.1.13.10 ity of [place] [facility] 4.2.7.2.686 Javi as [id number] [facility] 009 Branch 2020-08-27 2020-08-27 Orders Doctor CARTER 1.2.840.114 [id number] 00:00:00 00:00:00 Only Unassigned, [place] 350.1.13.10 [place] [facility] 4.2.7.2.686 [id number] 2019-11-09 2019-11-09 Emergency Dorian Davey [place] 1.2.840.114 [id number] Univers 18:43:24 19:41:00 Michelle Alexander 350.1.13.10 i ty of [place] 4.2.7.2.686 [facility] [id number] [address] 2019-11-09 2019-11-09 Emergency Dorian Davey [facility] 1.2.840.114 [id number] 18:43:24 19:41:00 Michelle Alexander 350.1.13.10 [place] 4.2.7.2.686 [place] [id number] [facility] 2019-02-09 2019-02-09 Emergency [facility] [id number] 18:23:25 19:26:00 Jade Alexander 350.1.13.10 [place] [address] [place] [address] [id number] [facility] 2019-02-09 2019-02-09 Emergency [facility] [id number] [place] [address] 18:23:25 19:26:00 Jade Alexander 350.1.13.10 ity of [place] 4.2.7.2.686 [facility] [id number] [address] 2019-01-27 2019-01-[address] [facility] 1.2.840.114 [id number] 09:07:03 10:06:37 Visit [facility] 350.1.13.10 Surgical 4.2.7.2.686 Specialti [id number] es [address] 2019-01-27 2019-01-[address] [facility] 1.2.840.[id number] [place] [address] 09:07:03 10:06:37 Visit [facility] 350.1.13.10 it y of Surgical 4.2.7.2.686 Javi as Specialti [id number] Ar dical es 198 [facility] 2007-01-23 2007-01-24 Inpatient P JIA KERR [facility] [id number] Univers 01:23:00 18:26:00 JIA KERR 8 ity of [facility] 2007-01-22 2007-01-22 Outpatient P MARIA G GERMAIN [facility] [id number] Univers 18:01:00 23:59:00 MARIA G GERMAIN 7 [facility] 2006-12-11 2006-12-11 Outpatient [facility] [id number] Univers 00:00:00 11:24:45 6 [facility] 2006-11-14 2006-11-14 Outpatient [facility] [id number] Univers 00:00:00 11:08:31 4 [facility] 2006-07-30 2006-07-30 Outpatient [facility] [id number] Univers 00:00:00 17:01:21 6 [facility] 2006-06-18 2006-06-18 Outpatient [facility] [id number] Univers 00:00:00 15:02:15 2 [facility] 2006-06-12 2006-06-12 Outpatient [facility] [id number] Univers 00:00:00 11:24:03 9 [facility] 2006-01-30 2006-01-30 Outpatient [facility] [id number] Univers 00:00:00 16:11:49 2 [facility] Results Test Description Test Time Test Comments Results Result Comments Source LIPID PANEL (79124)(TOTAL CHOLESTEROL, TRIGLYCERIDES, HDL) 12:53:45 Test Item Value Reference Range Interpretation Comme nts CHOL (test code = 5598292694) 127 mg/dL 120-200 HDL (test code = 0623746908) 45 mg/dL >50 L HDLC RATIO (test code = See_Comment [Au tomated message] The 9846991691) system which [employer] nerated this result transmit jem reference range: <=4.5. T he reference range was not u sed to interpret this result as normal/abnormal . TRIG (test code = 3412565524) 62 mg/dL 30-170 LDL CHOL (test code = 02836-3) 70 mg/dL See_Comment [Automated message] The system which [employer] nerated this result transmit jem reference range: <=160. T he reference range was not u sed to interpret this result as normal/abnormal . VLDL (test code = 6682916405) 12 mg/dL 5-60 Lab Interpretation (test code = Abnormal 86425-4) [facility] [id number] 12:53:25 Test Item Value Reference Range Interpretation Comments NA (test code = 141 mmol/L 135-145 5390758540) K (test code = 4.1 mmol/L 3.5-5.0 2994715191) CL (test code = 103 mmol/L 98-108 3873667065) CO2 TOTAL (test code = 26 mmol/L 23-31 6121435891) AGAP (test code = 2-16 2837317782) BUN (test code = 14 mg/dL 7-23 4787338627) GLUCOSE (test code = 121 mg/dL 70-110 H 8254466352) CREATININE (test code = 0.65 mg/dL 0.50-1.04 8073618066) TOTAL BILI (test code = 0.2 mg/dL 0.1-1.9 [id number]) CALCIUM (test code = 9.8 mg/dL 8.6-10.6 2816972645) T PROTEIN (test code = 7.2 g/dL 6.3-8.2 7991183592) ALBUMIN (test code = 4.6 g/dL 3.5-5.0 9610868877) ALK PHOS (test code = 49 U/L 34-122 1855661027) ALTv (test code = 14 U/L 5-35 1742-6) AST(SGOT) (test code = 18 U/L 13-40 9803691729) eGFR (test code = mL/min/1.73m2 0475461451) ATIYA (test code = ATIYA) Association of [...] tests). Lab Interpretation Abnormal (test code = 49618-3) [facility] [id number] 12:53:04 Test Item Value Reference Range Interpretation Comments LIPASE (test code = 8560056871) 83 U/L 0-220 Lab Interpretation (test code = Normal 82540-6) [facility] with [id number] 12:33:42 Test Item Value Reference Range Interpretation Comments WBC (test code = See_Comment [Automated 6190-2) message] The sy stem which generated this result transmitted reference range : 4.30 - 11.10 10*3/?L. The reference range was not used to interpret this result as normal/abnormal . RBC (test code = See_Comment [Automated 069-8) message] The sy stem which generated this [...] RDW-SD (test code = 40.3 fL 39.0-49.9 64019-0) RDW-CV (test code = 14.0 % 12.0-15.5 788-0) PLT (test code = See_Comment H [Automated 777-3) message] The sy stem which generated this result transmitted reference range : 166 - 358 10*3/ ?L. The reference r shanda was not used to interpret this result as normal/abnormal . MPV (test code = 8.9 fL 9.5-12.9 L 17948-5) NRBC/100 WBC (test See_Comment [Automat ed code = 1848393271) message] The system which generated this result transmitted reference range : 0.0 - 10.0 /100 WBCs. The refer ence range was not u sed to interpret th is result as normal/abnormal . NRBC x10^3 (test code <0.01 See_Comment [Auto mated = 1846550551) message] The s ystem which generated this result transmitted reference range : 10*3/?L. The reference range was not used to interpret this result as normal/abnormal . GRAN MAT (NEUT) % 68.0 % (test code = 770-8) IMM GRAN % (test code 0.30 % = 9376430654) LYMPH % (test code = 24.4 % 736-9) MONO % (test code = 5.0 % 5905-5) EOS % (test code = 2.0 % 713-8) BASO % (test code = 0.3 % 706-2) GRAN MAT x10^3(ANC) 6.34 10*3/uL 1.88-7.09 (test code = 4410502818) IMM GRAN x10^3 (test 0.03 10*3/uL 0.00-0.06 code = 3166737851) LYMPH x10^3 (test code 2.28 10*3/uL 1.32-3.29 = 731-0) MONO x10^3 (test code 0.47 10*3/uL 0.33-0.92 = 742-7) EOS x10^3 (test code = 0.19 10*3/uL 0.03-0.39 711-2) BASO x10^3 (test code 0.03 10*3/uL 0.01-0.07 = 704-7) Lab Interpretation Abnormal (test code = 25149-8) [facility] [id number] 12:16:00 Test Item Value Reference Range Interpretation Comments POCT PREG (test code = 1605) negative On board controls acceptable with present C Line (test code = 3574) POCT PREG LOT # (test code = 3575) [id number] POCT PREG TEST DATE (test code = 3576) Lab Interpretation (test code = Normal 88236-8) [facility] [id number] 12:14:00 Test Item Value Reference Range Interpretation Comments POCT PREG (test code = 1605) negative On board controls acceptable with present C Line (test code = 3574) POCT PREG LOT # (test code = 3575) [id number] POCT PREG TEST DATE (test code = 3576) Lab Interpretation (test code = Normal 82540-3) [facility] [id number] 14:51:00 Test Item Value Reference Range Interpretation Comments POCT PREG (test code = 1605) Negative On board controls acceptable with C Yes Line (test code = 3574) POCT PREG LOT # (test code = 3575) POCT PREG TEST DATE (test code = 3576) [facility] [id number] 04:47:15 Test Item Value Reference Range Interpretation [...] <3.22 (test code = 2238) COMPREHENSIVE METABOLIC [id number] 04:47:15 Test Item Value Reference Range Interpretation Comments GLUCOSE (test code = 97 MG/DL 70-99 2216) BUN (test code = 13 MG/DL 6-20 2207) CREATININE (test 0.63 MG/DL 0.60-1.30 code = 221) eGFR (2020 CKD-EPI) 114 >60 (test code = 64915) ML/MIN/1.73 CALC BUN/CREAT (test 21 RATIO 6-28 code = 2235) SODIUM (test code = 144 MEQ/L 508-174 4560) POTASSIUM (test code 4.2 MEQ/L 3.5-5.4 = 2227) CHLORIDE (test code 103 MEQ/L 95-107 = 2214) CARBON DIOXIDE (test 25 MEQ/L 19-31 code = 220) CALCIUM (test code = 9.9 MG/DL 8.5-10.5 2208) PROTEIN, TOTAL (test 8.0 G/DL 6.1-8.3 code = 2228) ALBUMIN (test code = 4.8 G/DL 3.5-5.2 2200) CALC GLOBULIN (test 3.2 G/DL 1.9-3.7 code = 2240) CALC A/G RATIO (test 1.5 RATIO 1.0-2.6 code = 2234) BILIRUBIN, TOTAL 0.2 MG/DL See_Comment [Automated message] (test code = 2207) The syste m which generated this result transmit jem reference range : <=1.2. The refe rence range was not u sed to interpret th is result as normal/abnormal . ALKALINE PHOSPHATASE 49 U/L 40-113 (test code = 2204) AST (test code = 17 U/L 9-40 2217) ALT (test code = 19 U/L 5-40 2218) HIV 1/2 4TH GEN, RFLX [id number] 03:35:20 Test Item Value Reference Range Interpretation Comments HIV 1/2 4TH GEN, RFLX CONF (test NON-REACTIVE NON-REACTIVE code = 3514) HEPATITIS PANEL, [id number] 03:35:20 Test Item Value Reference Range Interpretation Comments HEPATITIS A IgM (test NON-REACTIVE NON-REACTIVE code = 76400) HEPATITIS B CORE IgM NON-REACTIVE NON-REACTIVE (test code = 4644) HEPATITIS B SURF AG NON-REACTIVE NON-REACTIVE (test code = 2739) HEPATITIS C ANTIBODY NON-REACTIVE NON-REACTIVE (test code = 4675) INTERPRETATION (NOTE) Hepatitis A HEPATITIS A: (test serology shows no code = 2552) evidence of acu te hepatitis A. INTERPRETATION (NOTE) Hepatitis B HEPATITIS B: (test serology shows no code = 31287) evidence of ac [place] hepatitis B and no indication of exposure to hepatitis B vir us in the previous si xto eight months. INTERPRETATION (NOTE) Hepatitis C HEPATITIS C: (test serology shows no code = 16422) evidence of ex posure to hepatitisC v irus at this time. I t can take up to 12 m onths after exposure tothe hepatitis C vir us for antibodies to become detectab le in the blood in ce rtain patients. UNLES S OTHERWISE INDIC ATED, ALL TESTING PERFORMED [facility], [place]. [address] [place] [address] [facility] DIRECTOR: KAELA FRARELL M.D. CLIA NUMBER [id number] [place] [id number] CBC W/AUTO DIFF WITH [id number] 02:38:15 Test Item Value Reference Range Interpretation [...] = 1036) NUCLEATED RBCS (test 0.0 /100 WBC'S See_Comment [Aut omated code = 1065) message] The sy stem which generated this [...] RBCS 0.00 K/UL 0.00-0.11 (test code = 83815)"
[2022-04-21] MEDS ORDERED: PROMETHAZINE INJ 25 MG/ML AMP ONE (10:14)
[2022-04-21 11:22] LABS: Urine Blood Negative (Negative); Urine Glucose Negative (Negative); Urine Protein 2+ (Negative); Urine Specific Gravity 1.025 (1.005-1.030)
--- NOTE | 2022-04-21 11:25 | EDPHYS ---
Physician Documentation [facility] Name: Meghann Bob Age: 41 yrs Sex: Female : 1980 Arrival Date: 04/21/2022 Time: 09:21 Bed 6 Private MD: ED Physician Mike Romero HPI: 04/21 09:57 This 41 yrs old Female presents to ER via Ambulatory with complaints of Vomiting, snw Weakness, Fever. 09:57 The patient presents to the emergency department with nausea, vomiting. snw Historical: - Allergies: 09:32 PENICILLINS; ss - Home Meds: 09:32 "supposed to take medication for HTN" [Active]; ss - PMHx: 09:32 Migraines; Hypertensive disorder; ss - PSHx: 09:32 Tubal ligation; Cholecystectomy; ss - Immunization history:: Client reports receiving the 2nd dose of the Covid vaccine. - Social history:: Smoking status: Patient denies any tobacco usage or history of. ROS: 09:56 Eyes: Negative for injury, pain, redness, and discharge, ENT: Negative for injury, snw pain, and discharge, Neck: Negative for injury, pain, and swelling, Cardiovascular: Negative for chest pain, palpitations, and edema, Respiratory: Negative for shortness of breath, cough, wheezing, and pleuritic chest pain. 09:56 Back: Negative for injury and pain, : Negative for injury, bleeding, discharge, and swelling, MS/Extremity: Negative for injury and deformity, Skin: Negative for injury, rash, and discoloration, Neuro: Negative for headache, weakness, numbness, tingling, and seizure. 09:56 Constitutional: Positive for body aches, fatigue, fever, malaise, poor PO intake. 09:56 Abdomen/GI: Positive for nausea and vomiting. Exam: 09:56 Constitutional: This is a well developed, well nourished patient who is awake, alert, snw and in no acute distress. Head/Face: Normocephalic, atraumatic. Eyes: Pupils equal round and reactive to light, extra-ocular motions intact. Lids and lashes normal. Conjunctiva and sclera are non-icteric and not injected. Cornea within normal limits. Periorbital areas with no swelling, redness, or edema. ENT: Nares patent. No nasal discharge, no septal abnormalities noted. Tympanic membranes are normal and external auditory canals are clear. Oropharynx with no redness, swelling, or masses, exudates, or evidence of obstruction, uvula midline. Mucous membranes moist. Neck: Trachea midline, no thyromegaly or masses palpated, and no cervical lymphadenopathy. Supple, full range of motion without nuchal rigidity, or vertebral point tenderness. No Meningismus. Chest/axilla: Normal chest wall appearance and motion. Nontender with no deformity. No lesions are appreciated. Cardiovascular: Regular rate and rhythm with a normal S1 and S2. No gallops, murmurs, or rubs. Normal PMI, no JVD. No pulse deficits. Respiratory: Lungs have equal breath sounds bilaterally, clear to auscultation and percussion. No rales, rhonchi or wheezes noted. No increased work of breathing, no retractions or nasal flaring. Abdomen/GI: Soft, non-tender, with normal bowel sounds. No distension or tympany. No guarding or rebound. No evidence of tenderness throughout. Back: No spinal tenderness. No costovertebral tenderness. Full range of motion. Skin: Warm, dry with normal turgor. Normal color with no rashes, no lesions, and no evidence of cellulitis. MS/ Extremity: Pulses equal, no cyanosis. Neurovascular intact. Full, normal range of motion. Neuro: Awake and alert, GCS 15, oriented to person, place, time, and situation. Cranial nerves II-XII grossly intact. Motor strength 5/5 in all extremities. Sensory grossly intact. Cerebellar exam normal. Normal gait. Vital Signs: 09:30 BP 142 / 97; Pulse 97; Resp 15; Temp 99.4(O); Pulse Ox 99% on R/A; Weight 92.08 kg; ss Height 5 ft. 4 in. (162.56 cm); Pain 9/10; 10:09 BP 132 / 91; Pulse 92; Resp 18 S; Temp 99.7(O); Pulse Ox 99% on R/A; Pain 0/10; kc6 10:57 BP 141 / 88; Pulse 83; Resp 16 S; Temp 98.4(O); Pulse Ox 98% on R/A; kc6 11:51 BP 123 / 83; Pulse 75; Resp 16 S; Temp 98.2(O); Pulse Ox 100% on R/A; kc6 09:30 Body Mass Index 34.84 (92.08 kg, 162.56 cm) ss MDM: 09:34 Patient medically screened. snw 10:55 Data reviewed: vital signs, nurses notes, lab test result(s). Data interpreted: Pulse snw oximetry: on room air is 99 %. Interpretation: normal. Counseling: I had a detailed discussion with the patient and/or guardian regarding: the historical points, exam findings, and any diagnostic results supporting the discharge/admit diagnosis, the presence of at least one elevated blood pressure reading (>120/80) during this emergency department visit, lab results, the need for outpatient follow up, to return to the emergency department if symptoms worsen or persist or if there are any questions or concerns that arise at home. Response to treatment: the patient's symptoms have mildly improved after treatment. Special discussion: I have referred the patient to see his PCP for further evaluation of high blood pressure. Based on the history and exam findings, there is no indication for further emergent testing or inpatient evaluation. I discussed with the patient/guardian the need to see the primary care provider for further evaluation of the symptoms. 04/21 09:38 Order name: Flu; Complete Time: 10:34 snw 04/21 09:38 Order name: [place] Screen Profile; Complete Time: 10:26 snw 04/21 09:38 Order name: Strep; Complete Time: 10:34 snw 04/21 10:18 Order name: Glucose, Ancillary Testing; Complete Time: 10:19 EDMS 04/21 10:33 Order name: Throat Culture EDMS 04/21 10:55 Order name: Urine Microscopic Only; Complete Time: 11:39 snw 04/21 09:38 Order name: FSBS; Complete Time: 10:07 snw 04/21 10:55 Order name: Urine Dipstick-Ancillary (obtain specimen); Complete Time: 11:21 snw 04/21 11:22 Order name: Urine Dipstick-Ancillary; Complete Time: 11:23 EDMS Administered Medications: 10:19 Drug: Promethazine 25 mg Route: IM; Site: right deltoid; kc6 11:19 Follow up: Response: No adverse reaction; Nausea is decreased kc6 Disposition: 17:12 Co-signature as Attending Physician, Mike Romero DO I was immediately available onsite ms3 in the emergency department for consultation in the care of the patient. Disposition Summary: 04/21/22 11:24 Discharge Ordered Location: Home snw Condition: Fair snw Diagnosis - Other malaise and fatigue snw - Volume depletion, unspecified snw Followup: snw - With: Emergency Department - When: As needed - Reason: Worsening of condition Followup: snw - With: Private Physician - When: 1 - 2 days - Reason: Recheck today's complaints, Continuance of care, Re-evaluation by your physician Discharge Instructions: - Discharge Summary Sheet snw - Dehydration, Adult snw - Fatigue snw - Rehydration, Adult snw Forms: - Medication Reconciliation Form snw - Thank You Letter snw - Antibiotic Education snw - Prescription Opioid Use snw - Work release form snw Prescriptions: - promethazine 25 mg Oral Tablet - take 1 tablet by ORAL route every 6 hours As needed; 20 tablet; Refills: 0, snw Product Selection Permitted Signatures: Dispatcher [employer] EDAL Annelise Pierson, MONICO-C GANTRY CRANE OPERATOR-Csnw Lorene Trammell RN RN ss Sims, Marcus, DO DO ms3 Faustina Rendon RN RN kc6 Corrections: (The following items were deleted from the chart) 09:32 09:32 PSHx: tubes tied; ss ss
--- NOTE | 2022-04-21 11:25 | ER ---
Nurse's Notes [facility] Name: Meghann Bob Age: 41 yrs Sex: Female : 1980 Arrival Date: 04/21/2022 Time: 09:21 Bed 6 Private MD: Diagnosis: Other malaise and fatigue;Volume depletion, unspecified Presentation: 04/21 09:30 Chief complaint: Patient states: "I went to [facility] ER on . I had fever and ss chills. They did flu, covid and blood work. Everything came back fine. I just can't eat. I try to drink stuff and It seems like I don't get enough to drink. I also have vomiting and diarrhea.". Coronavirus screen: Client denies travel out of the [place] in the last 14 days. Ebola Screen: Patient denies exposure to infectious person. Patient denies travel to an Ebola-affected area in the 21 days before illness onset. Initial Sepsis Screen: Does the patient meet any 2 criteria? No. Patient's initial sepsis screen is negative. Does the patient have a suspected source of infection? No. Patient's initial sepsis screen is negative. Risk Assessment: Do you want to hurt yourself or someone else? Patient reports no desire to harm self or others. Onset of symptoms is unknown. 09:30 Method Of Arrival: Ambulatory ss 09:30 Acuity: ANGELO 3 ss Historical: - Allergies: 09:32 PENICILLINS; ss - Home Meds: 09:32 "supposed to take medication for HTN" [Active]; ss - PMHx: 09:32 Migraines; Hypertensive disorder; ss - PSHx: 09:32 Tubal ligation; Cholecystectomy; ss - Immunization history:: Client reports receiving the 2nd dose of the Covid vaccine. - Social history:: Smoking status: Patient denies any tobacco usage or history of. Screenin:59 Abuse screen: Denies threats or abuse. Denies injuries from another. Nutritional kc6 screening: No deficits noted. Tuberculosis screening: No symptoms or risk factors identified. Fall Risk No fall in past 12 months (0 pts). No secondary diagnosis (0 pts). IV access (20 points). Ambulatory Aid- None/Bed Rest/Nurse Assist (0 pts). Gait- Normal/Bed Rest/Wheelchair (0 pts) Mental Status- Oriented to own ability (0 pts). Total Murphy Fall Scale indicates No Risk (0-24 pts). Assessment: 10:07 General: Appears in no apparent distress. comfortable, Behavior is calm, cooperative, kc6 appropriate for age. Pain: Denies pain. Neuro: García Agitation-Sedation Scale (RASS): 0 - Alert and Calm Level of Consciousness is awake, alert, obeys commands, Oriented to person, place, time, situation, Appropriate for age. Cardiovascular: Heart tones S1 S2 present Capillary refill < 3 seconds. Respiratory: Airway is patent Trachea midline Respiratory effort is even, unlabored, Respiratory pattern is regular, symmetrical. GI: Abdomen is flat, non-distended, Bowel sounds present X 4 quads. Abd is soft and non tender X 4 quads. Reports intolerance of fluids, intolerance of food, nausea. : No signs and/or symptoms were reported regarding the genitourinary system. EENT: No signs and/or symptoms were reported regarding the EENT system. Derm: No signs and/or symptoms reported regarding the dermatologic system. Skin is intact, Skin is pink, warm \\T\\ dry. Musculoskeletal: No signs and/or symptoms reported regarding the musculoskeletal system. Circulation, motion, and sensation intact. Capillary refill < 3 seconds, Range of motion: intact in all extremities. 11:07 Reassessment: Patient appears in no apparent distress at this time. No changes from kc6 previously documented assessment. Patient and/or family updated on plan of care and expected duration. Pain level reassessed. Patient is alert, oriented x 3, equal unlabored respirations, skin warm/dry/pink. Patient states feeling better. Vital Signs: 09:30 BP 142 / 97; Pulse 97; Resp 15; Temp 99.4(O); Pulse Ox 99% on R/A; Weight 92.08 kg; ss Height 5 ft. 4 in. (162.56 cm); Pain 9/10; 10:09 BP 132 / 91; Pulse 92; Resp 18 S; Temp 99.7(O); Pulse Ox 99% on R/A; Pain 0/10; kc6 10:57 BP 141 / 88; Pulse 83; Resp 16 S; Temp 98.4(O); Pulse Ox 98% on R/A; kc6 11:51 BP 123 / 83; Pulse 75; Resp 16 S; Temp 98.2(O); Pulse Ox 100% on R/A; kc6 09:30 Body Mass Index 34.84 (92.08 kg, 162.56 cm) ED Course: 09:21 Patient arrived in ED. rg4 09:32 Triage completed. ss 09:32 Arm band placed on right wrist. ss 09:33 Annelise Pierson FNP-C is [facility]. snw 09:33 Mike Romero DO is Attending Physician. snw 09:35 Faustina Rendon, RICKEY is Primary Nurse. kc6 10:04 Strep Sent. kc6 10:04 [place] Screen Profile Sent. kc6 10:04 Flu Sent. kc6 10:07 Missed attempt(s): 20 gauge in left antecubital area. kc6 10:07 Inserted saline lock: 20 gauge in right antecubital area, using aseptic technique. kc6 Blood collected. 10:10 FSBS 111. kc6 11:21 Urine Microscopic Only Sent. kc6 11:59 Patient has correct armband on for positive identification. Placed in gown. Bed in low kc6 position. Call light in reach. Side rails up X 1. 11:59 No provider procedures requiring assistance completed. IV discontinued, intact, kc6 bleeding controlled, No redness/swelling at site. Pressure dressing applied. Administered Medications: 10:19 Drug: Promethazine 25 mg Route: IM; Site: right deltoid; kc6 11:19 Follow up: Response: No adverse reaction; Nausea is decreased kc6 Medication: 12:00 VIS not applicable for this client. kc6 Outcome: 11:24 Discharge ordered by . snw 11:59 Discharged to home ambulatory. kc6 11:59 Condition: stable 11:59 Discharge instructions given to patient, Instructed on discharge instructions, follow up and referral plans. medication usage. 11:59 Demonstrated understanding of instructions, follow-up care, medications, Prescriptions given X 1. 12:01 Patient left the ED. kc6 Signatures: Annelise Pierson FNP-C FNP-[place] Lorene Trammell RN RN Christine Siddiqui rg4 Faustina Rendon RN RN kc6 Corrections: (The following items were deleted from the chart) 09:32 09:32 PSHx: tubes tied; ss
[2022-04-21 11:37] LABS: Urine Bacteria <20 /HPF (<20); Urine Mucus 4+ /HPF (None Seen)
[2022-04-21 12:28] VITALS: BP 123/83; TEMP 98.2; O2SAT 100
== END 2022-04-21 12:01 | disposition home or self-care (01) ==
LOC: ER 09:17
DX: E86.9 Volume depletion, unspecified (principal); R53.81 Other malaise; R53.83 Other fatigue; I10 Essential (primary) hypertension; Z88.0 Allergy status to penicillin
CPT/HCPCS: 87070; 36415; 86308; 82947; 87081; 87804 ×2; 96372; 99284; J2550; 81003; 81015

== ENCOUNTER 2023-02-26 20:04 | Emergency (ER) | payer OTHER ==
--- OUTSIDE RECORDS SUMMARY | 2023-02-26 20:58 | XMS REPORT | Continuity of Care Document ---
:1980 Author Organization [facility] t Address [address] [facility] [address] [place] [address] Care Team Providers Name Role Phone SYSTEM, PCP NOT IN Primary Care Physician Unavailable DOCTOR UNASSIGNED, NO NAME Attending Clinician Unavailable ISAMAR SARAH Attending Clinician Unavailable CHIQUITA CRENSHAW Attending Clinician Unavailable Chiquita Crenshaw MD Attending Clinician Doctor Unassigned, [place] Attending Clinician Unavailable TESSIE SCHWARTZ Attending Clinician Unavailable Tessie Schwartz DO Attending Clinician MEGHANN VILLASEÑOR Attending Clinician Unavailable Meghann Tsai Attending Clinician Isamar Barroso Attending Clinician ALEKSANDRA LONDONO Attending Clinician Unavailable Aleksandra Bui Attending Clinician Giovanna Gomez Attending Clinician CARLOS STEPHENS Attending Clinician Unavailable GIOVANNA GUERRERO Attending Clinician Unavailable Santiago Paris MD Attending Clinician Dorian Messina Attending Clinician Eric TONY, Jade Dodge Attending Clinician Nicolle MCNAMARA Chuckie Galindo Attending Clinician JIA KERR Attending Clinician Unavailable JIA KERR Attending Clinician Unavailable MARIA G GERMAIN Attending Clinician Unavailable MARIA G GERMAIN Attending Clinician Unavailable HATTIE PASCUAL Admitting Clinician Unavailable TESSIE SCHWARTZ Admitting Clinician Unavailable KEVIN MARION Admitting Clinician Unavailable MARIA G GERMAIN Admitting Clinician Unavailable Payers Payer Name Policy Type Policy Number Effective Date Expiration Date S gabriel [employer] [place] [facility] [id number] 2020 00:00:00 MEDICAID PENDING PENDING 2020 00:00:00 [employer] [id number] OUT OF NETWORK 00:00:00 Problems Condition Condition [...] of human human 00:00: g of this [place] 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 [...] adverse 00:00: [place] reaction Medical s Branch Social History Social Habit Start Date Stop Date Quantity Comments Source Exposure to 2022-04-08 2022-04-18 Not sure [facility]-CoV-2 00:00:00 20:46:00 [facility] (event) [place] Alcohol intake 2022-04-18 2022-04-18 Ex-drinker [facility] 00:00:00 00:00:00 (finding) [facility] Tobacco use and 2019-01-27 2019-01-27 Smokeless tobacco Un iversity of exposure 00:00:00 00:00:00 non-user [facility] Sex Assigned At [address] [facility] 00:00[facility]00 [facility]00 [facility] Smoking Status Start Date Stop Date Source Never smoked tobacco [facility] Medications Ordered Filled Start Stop Current Ordering Indication Dosage Frequency Signature Comments Components Source Medication Medication Date Date Medication? Clinician (SIG) Name Name acetaminoph 2021-06 No 1000mg 1,000 mg, Univers en 06-19 Oral, ity of (TYLENOL) 02:23: 02:23 ONCE, 1 [place] tablet 00 :00 dose, On Medical 1,000 mg [place] Branch 04/18/22 at 2130, ROLANDA ibuprofen 2021-06 Yes [id number] 800mg Take 1 Univers 800 mg 1-03 tablet by ity of tablet 00:00: mouth [place] 00 every 8 Medical (eight) Branch hours as needed for Alternate with [place] for pain scale 4-6 or Temp > 38.5 C. ondansetron 2021-1 Yes [id number] 4mg Take 1 Univers (ZOFRAN) 4 1-03 tablet by ity of mg tablet 00:00: mouth [place] 00 every 8 Medical (eight) Branch hours as needed for Nausea and Vomiting (N/V). ondansetron 2021-0 2021- No 4mg 4 mg, Slow Univers [...] Routine, IV line flushing ondansetron 2-0 Yes [id number] 4mg Take 1 Univers 4 mg 6-03 tablet by ity of disintegrat 00:00: mouth [place] ing tablet 00 every 8 Medica l (eight) Branch hours as needed for Nausea and Vomiting (N/V). ondansetron 2022-0 Yes [id number] 4mg Take 1 Univers 4 mg 6-03 tablet by ity of disintegrat 00:00: mouth [place] ing tablet 00 every 8 Medica l (eight) Branch hours as needed for Nausea and Vomiting (N/V). lisinopriL 2022-0 Yes 10mg Take 10 mg U nivers 10 mg 3-11 by mouth ity of tablet 09:09: daily. [address] lisinopriL 2022-0 Yes 10mg Take 10 mg U nivers 10 mg 3-11 by mouth ity of tablet 09:09: daily. [address] lisinopriL Yes 10mg Take 10 mg U nivers 10 mg 3-11 by mouth ity of tablet 09:09: daily. [address] lisinopriL 0 Yes 10mg Take 10 mg U nivers 10 mg 3-11 by mouth ity of tablet 09:09: daily. [address] lisinopriL Yes 10mg Take 10 mg U nivers 10 mg 3-11 by mouth ity of tablet 09:09: daily. [address] multivitami Yes Take by Uni vers n (DAILY 2-25 mouth. ity of VITAMIN 09:47: [place] ORAL) [address] [place] [address] ferrous Yes Take by Univers sulfate 2-25 mouth. ity of (IRON ORAL) 09:47: [address] multivitami Yes Take by Uni vers n (DAILY 2-25 mouth. ity of VITAMIN 09:47: [place] ORAL) [address] [place] [address] ferrous Yes Take by Univers sulfate 2-25 mouth. ity of (IRON ORAL) 09:47: [address] multivitami Yes Take by Uni vers n (DAILY 2-25 mouth. ity of VITAMIN 09:47: [place] ORAL) [address] [place] [address] ferrous Yes Take by Univers sulfate 2-25 mouth. ity of (IRON ORAL) 09:47: [address] multivitami Yes Take by Uni vers n (DAILY 2-25 mouth. ity of VITAMIN 09:47: [place] ORAL) [address] [place] [address] ferrous Yes Take by Univers sulfate 2-25 mouth. ity of (IRON ORAL) 09:47: [address] multivitami Yes Take by Uni vers n (DAILY 2-25 mouth. ity of VITAMIN 09:47: [place] ORAL) [address] [place] [address] ferrous 0 Yes Take by Univers sulfate 2-25 mouth. ity of (IRON ORAL) 09:47: [address] Immunizations Ordered Filled Immunization Date Status Comments [facility] e Immunization Name Name Td 2018-04-13 Completed University of 00:00:00 [facility] Td 2018-04-13 Completed University 00:00:00 [facility] Td 2018-04-13 Completed [facility] 00:00:00 [facility] 2018-04-13 Completed University of 00:00:00 [place] [facility] Td 2018-04-13 Completed University 00:00:00 [facility] Vital Signs Vital Name Observation Time Observation Value Comments Source Systolic blood 2022-04-19 03:00:00 149 mm[Hg] Univer sity of pressure [place] [facility] Diastolic blood 2022-04-19 03:00:00 96 mm[Hg] Unive rsity of pressure [place] [facility] Heart rate 2022-04-19 03:00:00 102 /min Universi ty [facility] [place] [facility] Respiratory rate 2022-04-19 03:00:00 16 /min Univ ersity of [place] [facility] Oxygen saturation in 2022-04-19 03:00:00 99 /min University of Arterial blood by [place] Viraliti sebastien Pulse oximetry Branch Body temperature 2022-04-19 01:48:00 37.94 Yanira Univ ersity of [place] [facility] Body height 2022-04-19 01:48:00 162.6 cm [facility] [place] [facility] Body weight 2022-04-19 01:48:00 92.216 kg [facility] [place] [facility] BMI 2022-04-19 01:48:00 34.90 kg/m2 [facility] [place] [facility] Systolic blood 2021-11-16 12:10:00 145 mm[Hg] Univer sity of pressure [place] [facility] Diastolic blood 2021-11-16 12:10:00 75 mm[Hg] Unive rsity of pressure [place] [facility] Heart rate 2021-11-16 12:10:00 76 /min [facility] [place] [facility] Body temperature 2021-11-16 12:10:00 37.11 Yanira Univ ersity of [place] [facility] Respiratory rate 2021-11-16 12:10:00 18 /min Univ ers[facility] [place] [facility] Body weight 2021-11-16 12:10:00 94.348 kg [facility] [place] [facility] BMI 2021-11-16 12:10:00 35.70 kg/m2 [facility] [place] [facility] Oxygen saturation in 2021-11-16 12:10:00 99 /min University of Arterial blood by [place] Viraliti sebastien Pulse oximetry Branch Systolic blood 2021-08-24 14:46:00 136 mm[Hg] Univer sity of pressure [place] [facility] Diastolic blood 2021-08-24 14:46:00 87 mm[Hg] [facility] pressure [facility] Heart rate 2021-08-24 14:46:00 64 /min [facility] Body temperature 2021-08-24 14:46:00 35.78 Yanira [facility] Respiratory rate 2021-08-24 14:46:00 18 /min [facility] Body height 2021-08-24 14:46:00 162.6 cm [facility] Body weight 2021-08-24 14:46:00 94.575 kg [facility] BMI 2021-08-24 14:46:00 35.79 kg/m2 [facility] Procedures Procedure Date / Time Performed Performing Clinician Sour e COMP. METABOLIC PANEL 2022-04-19 02:19:00 Chiquita Crenshaw [facility] ([id number]) [facility] CBC WITH DIFF 2022-04-19 02:19:00 Chiquita Crenshaw [facility] URINALYSIS 2022-04-19 02:19:00 Chiquita Crenshaw [facility] RAPID INFLUENZA A/B 2022-04-19 02:19:00 Chiquita Crenshaw [facility] COVID-19 (ID NOW RAPID 2022-04-19 02:19:00 Chiquita Crenshaw [facility] TESTING) [facility] NOTICE OF PRIVACY 2022-04-19 01:40:16 Doctor Unassigned, No [facility] PRACTICES Name [facility] CONSENT/REFUSAL FOR 2022-04-19 01:39:34 Doctor Unassigned, No [facility] DIAGNOSIS AND Name [facility] TREATMENT US ABDOMEN LIMITED 2021-11-16 13:38:25 [facility] 2021-11-16 12:16:00 Singer Tessie [facility] COMP. METABOLIC PANEL 2021-11-16 12:16:00 Tessie Schwartz [facility] ([id number]) Medical [place] LIPID PANEL 2021-11-16 12:16:00 [id number]TOTAL Medical Branch CHOLESTEROL, TRIGLYCERIDES, HDL) CBC WITH DIFF 2021-11-16 12:16:00 Singer [facility] URINALYSIS 2021-11-16 12:16:00 Singer [facility] POCT TEST 2021-11-16 12:16:00 Singer [facility] POCT TEST 2021-11-16 12:14:00 Singer [facility] CONSENT/REFUSAL FOR 2021-11-16 12:05:02 Doctor Unassigned, No [facility] DIAGNOSIS AND Name Medical Branch TREATMENT SURGICAL PATHOLOGY 2021-08-24 15:15:00 [facility] POCT TEST 2021-08-24 14:51:00 [facility]ann [facility] Encounters Start End Encounter Admission Attending Care Care Encounter Source Date/Time Date/Time Type Type Clinicians Facility Department ID 2021-04-16 Emergency [facility] [id number] Univers 23:42:01 ity of [facility] 2021-04-15 Emergency [facility] [id number] Univers 05:52:24 ity of [facility] 2021-04-12 Emergency [facility] [id number] Univers 22:19:27 it of [facility] 2007-02-25 Inpatient P DOCTOR [facility] JORDAN [id number] Univers 00:00:00 UNASSIGNED, 3 ity of [facility] 2022-04-18 2022-04-18 [id number] Univers 20:51:00 23:07:00 WALI ity [facility] 2022-04-18 2022-04-18 Emergency [facility] [id number] Univers 20:51:00 23:07:00 Chiquita ALEXANDER [id number] ity [facility] [id number] [facility] [phone] [facility] 084 Branch 2022-04-18 2022-04-18 Orders Doctor EMMA [id number] Univers 00:00:00 00:00:00 Only Unassigned, [place] [id number] ity of [place] [facility] 4.2.7.2.686 Javi as [phone] [address] 2021-11-16 2021-11-16 Emergency X SINGER [facility] ERT [id number] Univers 07:14:00 09:17:00 TESSIE fung of [facility] 2021-11-16 2021-11-16 Emergency [facility] [id number] Univers 07:14:00 09:17:00 Tessie ALEXANDER [id number] i ty [facility] 4.2.7.2.686 [facility] [id number] [facility] 084 [place] 2021-11-16 2021-11-16 Orders Doctor EMMA [id number] Univers 00:00:00 00:00:00 Only Unassigned, [place] [id number] ity of [place] [facility] 4.2.7.2.686 Javi as [id number] [address] 2021-08-24 2021-08-24 Outpatient Annie VILLASEÑOR [facility] [id number] Univers 08:45:00 09:53:30 MEGHANN mitchell [facility] 2021-08-24 2021-08-24 Office [facility] [id number] Univers 08:45:00 09:53:30 Visit Meghann Liu [employer] [id number] ity [facility] 4.2.7.2.686 Javi as MATERNAL [id number] [facility] ical & CHILD [address] [place] [address] 2021-08-24 2021-08-24 Outpatient Annie VILLASEÑOR [facility] [id number] Univers 08:45:00 09:53:30 MEGHANN mitchell [facility] 2021-08-24 2021-08-24 Outpatient Annie VILLASEÑOR [facility] [id number] Univers 08:45:00 09:53:30 MEGHANN mitchell [facility] 2021-08-24 2021-08-24 Outpatient Annie VILLASEÑOR [facility] [id number] Univers 08:45:00 08:45:00 MEGHANN antonieta tran [facility] 2021-08-21 2021-08-21 Outpatient Annie SARAH [facility] [id number] Univers 06:34:51 23:59:00 ISAMAR fung o [facility] 2021-08-21 2021-08-21 Hospital [facility] [id number] Univers 06:34:51 23:59:00 Encounter Isamar Valencia SPECIALTY [id number] ity of CARE 4.2.7.2.686 [place] C[place] AT [phone] [address] 2021-08-21 2021-08-21 Outpatient Annie SARAH [facility] [id number] Univers 00:00:00 23:59:00 ISAMAR tran [facility] 2021-08-21 2021-08-21 Outpatient Annie RUSTE [facility] [id number] Univers 00:00:00 23:59:00 ISAMAR tran [facility] 2021-08-21 2021-08-21 Outpatient Annie SARAH [facility] [id number] Univers 00:00:00 00:00:00 ISAMAR tran [facility] 2021-08-21 2021-08-21 [facility] [id number] Univers 00:00:00 00:00:00 ISAMAR tran [facility] 2021-08-21 2021-08-21 Out[facility] [id number] Univers 00:00:00 00:00:00 ISAMAR tran [facility] 2021-08-10 2021-08-10 Office [facility] [id number] [id number] Univers 10:00:00 10:30:00 Visit Meghann Liu [employer] [id number] ity of REGIONAL 4.2.7.2.686 Javi as MATERNAL [id number] [facility] ical & CHILD [address] [place] [address] 2021-08-10 2021-08-10 Outpatient R CHARELEN [facility] [id number] Univers 10:00:00 10:00:00 MEGHANN tran stephen [facility] 2021-08-10 2021-08-10 Outpatient R CHARLEEN [facility] [id number] Univers 10:00:00 10:00:00 MEGHANN mitchell [facility] 2021-08-09 2021-08-09 Telephone [facility] [id number] Univers 00:00:00 00:00:00 Meghann Liu [employer]PER[employer] [id number] ity [facility] 4.2.7.2.686 Javi as MATERNAL [id number] [facility] & CHILD [address] [place] [address] 2021-08-08 2021-08-08 Emergency [facility] [id number] Univers 12:32:00 14:29:00 [facility] 2021-08-08 2021-08-08 Emergency [facility] [id number] Univers 12:32:00 14:29:00 Aleksandra S [place] [id number] i ty [facility] 4.2.7.2.686 [place] [facility] [id number] [facility] 084 [place] 2021-08-08 2021-08-08 Emergency [facility] [id number] Univers 12:32:00 14:29:00 [facility]DR[facility] 2021-07-10 2021-07-10 Orders Doctor CARTER [id number] [id number] Univers 00:00:00 00:00:00 Only Unassigned, [place] [id number] ity of [facility] 4.2.7.2.686 Javi as [id number] [facility] 009 Branch 2021 2021 Outpatient R KEARA [facility] [id number] Univers 10:00:00 10:31:40 ISAMAR fung o [facility] 2021 2021 Outpatient R [facility] [id number] Univers 10:00:00 10:00:00 ity of [place] [facility] 2021-07-03 2021-07-03 Telephone [facility] [id number] Univers 00:00:00 00:00:00 Isamar Valencia [employer] [id number] ity of [facility] 4.2.7.2.686 Javi as MATERNAL [id number] [facility] & CHILD [address] [place] [address] 2021-06-20 2021-06-20 Outpatient R KEARA [facility] [id number] Univers 14:00:00 14:58:40 ISAMAR fung o f [facility] 2021-06-20 2021-06-20 Office Isamar Sarah [facility] 1.2.840 .114 [id number] Univers 14:00:00 14:58:40 Visit Giovanna Guerrero [employer] 350.1.13.10 ity [place] [id number] Javi as MATERNAL [phone] [facility] & CHILD [address] [place] [address] 2021-06-20 2021-06-20 Outpatient R KEARA [facility] [id number] Univers 14:00:00 14:58:40 ISAMAR fung o f [facility] 2021-06-20 2021-06-20 Orders Doctor EMMA 1.2.840.114 [id number] Univers 00:00:00 00:00:00 Only Unassigned, [place] 350.1.13.10 ity of [place] [address]686 Javi as [id number] [address] 2021-05-01 2021-05-01 Outpatient R KAT [facility] [id number] Univers 09:30:00 09:30:00 CARLOS fung [facility] 2021-03-28 2021-03-28 [facility] [id number] Univers 09:45:00 09:45:00 GIOVANNA fung [facility] 2021-03-04 2021-03-04 Emergency X BRY [facility] ERT [id number] Univers 12:42:00 17:00:00 [facility]DRA [facility] 2021-03-04 2021-03-04 Emergency [place], [facility] [id number] Univers 12:42:00 17:00:00 Aleksandra Galindo Alexander 350.1.13.10 i ty of [place] 4.2.7.2.686 [facility] [id number] [place] [id number] Branch 2021-03-04 2021-03-04 Orders Doctor CARTER 1.2.840.114 [id number] Univers 00:00:00 00:00:00 Only Unassigned, [place] 350.1.13.10 ity of [place] [facility] 4.2.7.2.686 Javi as [id number] [address] 2020-08-27 2020-08-27 Emergency [place], [facility] [id number] Univers 14:00:00 14:43:00 Santiago Alexander 350.1.13.10 i ty of [place] 4.2.7.2.686 [facility] [id number] [address] 2020-08-27 2020-08-27 Emergency [facility] [id number] 14:00:00 14:43:00 Santiago Alexander 350.1.13.10 [place] 4.2.7.2.686 [place] [id number] 2020-08-27 2020-08-27 Orders Doctor CARTER 1.2.840.114 [id number] Univers 00:00:00 00:00:00 Only Unassigned, [place] 350.1.13.10 ity of [place] [facility] 4.2.7.2.686 Javi as [id number] [address] 2020-08-27 2020-08-27 Orders Doctor CARTER 1.2.840.114 [id number] 00:00:00 00:00:00 Only Unassigned, [place] 350.1.13.10 [place] [facility] 4.2.7.2.686 [id number] 2019-11-09 2019-11-09 Emergency Dorian Davey [facility] 1.2.840.114 [id number] 18:43:24 19:41:00 Michelle Alexander 350.1.13.10 [place] 4.2.7.2.686 [place] [id number] [facility] 2019-11-09 2019-11-09 Emergency Dorian Davey [facility] 1.2.840.114 [id number] [facility] 18:43:24 19:41:00 Michelle Alexander 350.1.13.10 i ty of [place] 4.2.7.2.686 [facility] [id number] [address] 2019-02-09 2019-02-09 Emergency [facility] [id number] 18:23:25 19:26:00 Jade Alexander 350.1.13.10 [place] 4.2.7.2.686 [place] [id number] [facility] 2019-02-09 2019-02-09 Emergency [facility] [id number] [place] [address] 18:23:25 19:26:00 Jade Alexander 350.1.13.10 ity of [place] 4.2.7.2.686 [facility] [id number] [address] 2019-01-27 2019-01-27 Office Nicolle [facility] 1.2.840.114 [id number] 09:07:03 10:06:37 Visit [facility] 350.1.13.10 Surgical 4.2.7.2.686 Specialti [id number] es 198 [place] 2019-01-27 2019-01-27 Office [facility] 1.2.840.[id number] [place] [address] 09:07:03 10:06:37 Visit [facility] 350.1.13.10 it y of Surgical 4.2.7.2.686 Javi as Specialti [id number] Mi dical 198 [facility] 2007-01-23 2007-01-24 Inpatient P JIA KERR [facility] [id number] Univers 01:23:00 18:26:00 JIA KERR 8 ity of [facility] 2007-01-22 2007-01-22 Outpatient P MARIA G GERMAIN [facility] [id number] Univers 18:01:00 23:59:00 MARIA G GERMAIN 7 [facility] 2006-12-11 2006-12-11 Outpatient [facility] [id number] Univers 00:00:00 11:24:[address] [facility] 2006-11-14 2006-11-14 Outpatient [facility] [id number] Univers 00:00:00 11:08:[address] [facility] 2006-07-30 2006-07-30 Outpatient [facility] [id number] Univers 00:00:00 17:01:[address] [facility] 2006-06-18 2006-06-18 Outpatient [facility] [id number] Univers 00:00:00 15:02:[address] [facility] 2006-06-12 2006-06-12 Outpatient [facility] [id number] Univers 00:00:00 11:24:[address] [facility] 2006-01-30 2006-01-30 Outpatient [facility] [id number] Univers 00:00:00 16:11:[address] [facility] Results Test Description Test Time Test Comments Results Result Comments Source LIPID PANEL (91715)(TOTAL CHOLESTEROL, TRIGLYCERIDES, HDL) 12:53:45 Test Item Value Reference Range Interpretation Comme nts CHOL (test code = 5972034052) 127 mg/dL 120-200 HDL (test code = 3210464787) 45 mg/dL >50 L HDLC RATIO (test code = See_Comment [Au tomated message] The 6939983894) system which [employer] nerated this result transmit jem reference range: <=4.5. T he reference range was not u sed to interpret this result as normal/abnormal . TRIG (test code = 4078351099) 62 mg/dL 30-170 LDL CHOL (test code = 91532-7) 70 mg/dL See_Comment [Automated message] The system which [employer] nerated this result transmit jem reference range: <=160. T he reference range was not u sed to interpret this result as normal/abnormal . VLDL (test code = 5832804378) 12 mg/dL 5-60 Lab Interpretation (test code = Abnormal 51481-4) [facility] [id number] 12:53:25 Test Item Value Reference Range Interpretation Comments NA (test code = 141 mmol/L 135-145 1909106823) K (test code = 4.1 mmol/L 3.5-5.0 8872745786) CL (test code = 103 mmol/L 98-108 1745722615) CO2 TOTAL (test code = 26 mmol/L 23-31 4860190751) AGAP (test code = 2-16 2676727219) BUN (test code = 14 mg/dL 7-23 0077190167) GLUCOSE (test code = 121 mg/dL 70-110 H 7403568708) CREATININE (test code = 0.65 mg/dL 0.50-1.04 9235876964) TOTAL BILI (test code = 0.2 mg/dL 0.1-1.5 0891564263) CALCIUM (test code = 9.8 mg/dL 8.6-10.6 1946282586) T PROTEIN (test code = 7.2 g/dL 6.3-8.2 0372336627) ALBUMIN (test code = 4.6 g/dL 3.5-5.0 5009371799) ALK PHOS (test code = 49 U/L 34-122 [id number]) ALTv (test code = 14 U/L 5-35 1742-6) AST(SGOT) (test code = 18 U/L 13-40 5666654376) eGFR (test code = mL/min/1.73m2 8997205571) ATIYA (test code = ATIYA) Association of [...] tests). Lab Interpretation Abnormal (test code = 60036-0) [facility] [id number] 12:53:04 Test Item Value Reference Range Interpretation Comments LIPASE (test code = 5969993054) 83 U/L 0-220 Lab Interpretation (test code = Normal 83165-9) [facility] with [id number] 12:33:42 Test Item Value Reference Range Interpretation Comments WBC (test code = See_Comment [Automated 3090-2) message] The sy stem which generated this result transmitted reference range : 4.30 - 11.10 10*3/?L. The reference range was not used to interpret this result as normal/abnormal . RBC (test code = See_Comment [Automated 899-8) message] The sy stem which generated this [...] RDW-SD (test code = 40.3 fL 39.0-49.9 66292-8) RDW-CV (test code = 14.0 % 12.0-15.5 788-0) PLT (test code = See_Comment H [Automated 777-3) message] The sy stem which generated this result transmitted reference range : 166 - 358 10*3/ ?L. The reference r shanda was not used to interpret this result as normal/abnormal . MPV (test code = 8.9 fL 9.5-12.9 L 69619-6) NRBC/100 WBC (test See_Comment [Automat ed code = 8819755725) message] The system which generated this result transmitted reference range : 0.0 - 10.0 /100 WBCs. The refer ence range was not u sed to interpret th is result as normal/abnormal . NRBC x10^3 (test code <0.01 See_Comment [Auto mated = 0758655510) message] The s ystem which generated this result transmitted reference range : 10*3/?L. The reference range was not used to interpret this result as normal/abnormal . GRAN MAT (NEUT) % 68.0 % (test code = 770-8) IMM GRAN % (test code 0.30 % = 2817331539) LYMPH % (test code = 24.4 % 736-9) MONO % (test code = 5.0 % 5905-5) EOS % (test code = 2.0 % 713-8) BASO % (test code = 0.3 % 706-2) GRAN MAT x10^3(ANC) 6.34 10*3/uL 1.88-7.09 (test code = 8708252382) IMM GRAN x10^3 (test 0.03 10*3/uL 0.00-0.06 code = 8765726182) LYMPH x10^3 (test code 2.28 10*3/uL 1.32-3.29 = 731-0) MONO x10^3 (test code 0.47 10*3/uL 0.33-0.92 = 742-7) EOS x10^3 (test code = 0.19 10*3/uL 0.03-0.39 711-2) BASO x10^3 (test code 0.03 10*3/uL 0.01-0.07 = 704-7) Lab Interpretation Abnormal (test code = 66124-7) [facility] [id number] 12:16:00 Test Item Value Reference Range Interpretation Comments POCT PREG (test code = 1605) negative On board controls acceptable with present C Line (test code = 3574) POCT PREG LOT # (test code = 3575) [id number] POCT PREG TEST DATE (test code = 3576) Lab Interpretation (test code = Normal 76528-2) [facility] [id number] 12:14:00 Test Item Value Reference Range Interpretation Comments POCT PREG (test code = 1605) negative On board controls acceptable with present C Line (test code = 3574) POCT PREG LOT # (test code = 3575) [id number] POCT PREG TEST DATE (test code = 3576) Lab Interpretation (test code = Normal 58145-2) [facility] [id number] 14:51:00 Test Item Value Reference Range Interpretation Comments POCT PREG (test code = 1605) Negative On board controls acceptable with C Yes Line (test code = 3574) POCT PREG LOT # (test code = 3575) POCT PREG TEST DATE (test code = 3576) [facility] [id number] 04:47:15 Test Item Value Reference Range Interpretation [...] <3.22 (test code = 2238) COMPREHENSIVE METABOLIC [id number] 04:47:15 Test Item Value Reference Range Interpretation Comments GLUCOSE (test code = 97 MG/DL 70-99 2217) BUN (test code = 13 MG/DL 6-20 2207) CREATININE (test 0.63 MG/DL 0.60-1.30 code = 2214) eGFR (2020 CKD-EPI) 114 >60 (test code = 21309) ML/MIN/1.73 CALC BUN/CREAT (test 21 RATIO 6-28 code = 2235) SODIUM (test code = 144 MEQ/L 403-140 3620) POTASSIUM (test code 4.2 MEQ/L 3.5-5.4 = [...] MG/DL See_Comment [Automated message] (test code = 220) The syste m which generated this result transmit jem reference range : <=1.2. The refe rence range was not u sed to interpret th is result as normal/abnormal . ALKALINE PHOSPHATASE 49 U/L 40-113 (test code = 2204) AST (test code = 17 U/L 9-40 2217) ALT (test code = 19 U/L 5-40 2218) HIV 1/2 4TH GEN, RFLX [id number] 03:35:20 Test Item Value Reference Range Interpretation Comments HIV 1/2 4TH GEN, RFLX CONF (test NON-REACTIVE NON-REACTIVE code = 3514) HEPATITIS PANEL, [id number] 03:35:20 Test Item Value Reference Range Interpretation Comments HEPATITIS A IgM (test NON-REACTIVE NON-REACTIVE code = 27806) HEPATITIS B CORE IgM NON-REACTIVE NON-REACTIVE (test code = 4644) HEPATITIS B SURF AG NON-REACTIVE NON-REACTIVE (test code = 2739) HEPATITIS C ANTIBODY NON-REACTIVE NON-REACTIVE (test code = 4675) INTERPRETATION (NOTE) Hepatitis A HEPATITIS A: (test serology shows no code = 2552) evidence of acu te hepatitis A. INTERPRETATION (NOTE) Hepatitis B HEPATITIS B: (test serology shows no code = 16909) evidence of ac wilberto hepatitis B and no indication of exposure to hepatitis B vir us in the previous si xto eight months. INTERPRETATION (NOTE) Hepatitis C HEPATITIS C: (test serology shows no code = 15481) evidence of ex posure to hepatitisC v irus at this time. I t can take up to 12 m onths after exposure tothe hepatitis C vir us for antibodies to become detectab le in the blood in ce rtain patients. UNLES S OTHERWISE INDIC ATED, ALL TESTING PERFORMED [facility], [place] [address] [place], [place] [id number] [place] [address] DIRECTOR: KAELA FARRELL M.D. CLIA NUMBER [id number] [place] [id number] CBC W/AUTO DIFF WITH [id number] 02:38:15 Test Item Value Reference Range Interpretation [...] RBCS 0.00 K/UL 0.00-0.11 (test code = 96703)"
[2023-02-26 21:37] LABS: Specific Gravity 1.028 (1.005-1.030); Urine Bacteria <20 /HPF (<20); Urine Bilirubin 2+ (Negative); Urine Blood Negative (Negative); Urine Clarity Extremely Turbid (Clear); Urine Color Dark-Yellow (Yellow); Urine Glucose NEGATIVE (Negative); Urine Mucus Slight /HPF (None Seen); Urine Protein TRACE (Negative); Urine RBC <5 /HPF (None Seen); Urine Urobilinogen 2+ (Normal); Urine pH 6.5 (5.0-7.0)
--- NOTE | 2023-02-26 21:59 | EDPHYS ---
Physician Documentation [facility] Name: Meghann Bob Age: 42 yrs Sex: Female : 1980 Arrival Date: 02/26/2023 Time: 20:04 Bed 6 Private MD: ED Physician Soto Hutchinson HPI: 02/26 20:51 This 42 yrs old Female presents to ER via Ambulatory with complaints of Pain With ms3 Urination. 20:51 42-year-old female with past medical history of hypertension presents for dysuria, ms3 frequency, urgency that has been ongoing for 1 week. Patient states her discomfort is a 2/10. Patient denies fevers, chills, nausea, vomiting, back pain. Patient denies alleviating or inciting factors. Historical: - Allergies: 20:42 PENICILLINS; as6 - PMHx: 20:42 Hypertensive disorder; Migraines; as6 - PSHx: 20:42 Cholecystectomy; tubal ligation; as6 - Immunization history:: Client reports receiving the Melvin \T\ Melvin single-dose vaccine. - Social history:: Smoking status: Patient denies any tobacco usage or history of. ROS: 20:51 Constitutional: Negative for fever, and chills. Neck: Negative for injury, pain, and ms3 swelling, Cardiovascular: Negative for chest pain, and palpitations. Respiratory: Negative for shortness of breath, cough, wheezing, and pleuritic chest pain, Abdomen/GI: Negative for abdominal pain, nausea, vomiting, diarrhea, and constipation, MS/Extremity: Negative for injury and deformity, Skin: Negative for injury, rash, and discoloration. 20:51 : Positive for urinary symptoms, urinary frequency. Exam: 20:51 Constitutional: This is a well developed, well nourished patient who is awake, alert, ms3 and in no acute distress. Head/Face: Normocephalic, atraumatic. Neck: Trachea midline, no cervical lymphadenopathy. Supple, full range of motion without nuchal rigidity, or vertebral point tenderness. No Meningismus. Chest/axilla: Normal chest wall appearance and motion. Nontender with no deformity. Cardiovascular: Regular rate and rhythm with a normal S1 and S2. No gallops, murmurs, or rubs. Normal PMI, no JVD. No pulse deficits. Respiratory: Lungs have equal breath sounds bilaterally, clear to auscultation and percussion. No rales, rhonchi or wheezes noted. No increased work of breathing, no retractions or nasal flaring. Abdomen/GI: Soft, non-tender, with normal bowel sounds. No distension or tympany. No guarding or rebound. No evidence of tenderness throughout. Skin: Warm, dry with normal turgor. Normal color with no rashes, no lesions, and no evidence of cellulitis. MS/ Extremity: Pulses equal, no cyanosis. Neurovascular intact. Full, normal range of motion. Vital Signs: 20:40 BP 157 / 110; Pulse 77; Resp 18 S; Temp 98.6(TE); Pulse Ox 98% on R/A; Weight 80.74 kg as6 (R); Height 5 ft. 4 in. (R); Pain 0/10; 21:00 BP 150 / 98; Pulse 78; Resp 18 S; Pulse Ox 98% on R/A; ha1 22:00 BP 147 / 95; Pulse 75; Resp 17 S; Pulse Ox 98% on R/A; ha1 20:40 Body Mass Index 30.55 (80.74 kg, 162.56 cm) as6 20:40 Pain Scale: Adult as6 MDM: 20:51 Patient medically screened. ms3 20:51 Differential diagnosis: UTI, Interstitial cystitis versus dysuria. ms3 21:14 Transition of care: After a detail discussion of the patient's case, care is ms3 transferred to Soto Hutchinson MD. 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 Counseling: I had a detailed discussion with the patient and/or guardian regarding the historical points, exam findings, and any diagnostic results supporting the discharge/admit diagnosis, lab results, the need for outpatient follow up, to return to the emergency department if symptoms worsen or persist or if there are any questions or concerns that arise at home. Special discussion: I discussed with the patient/guardian in detail that at this point there is no indication for admission to the hospital. It is understood, however, that if the symptoms persist or worsen the patient needs to return immediately for re-evaluation. 02/26 20:41 Order name: Urinalysis w/ reflexes; Complete Time: 21:58 as6 02/26 21:56 Order name: Urine Culture EDMS Administered Medications: 22:12 Drug: Macrobid PO 100 mg Route: PO; ha1 22:23 Follow up: Response: No adverse reaction ha1 Disposition Summary: 02/26/23 21:58 Discharge Ordered Location: Home rn Condition: Stable rn Diagnosis - UTI/ Urinary tract infection, site not specified rn - Dysuria rn Followup: ms3 - With: - When: 2 - 3 days - Reason: Recheck today's complaints Discharge Instructions: - Discharge Summary Sheet ms3 - Urinary Tract Infection, Adult ms3 Forms: - Medication Reconciliation Form rn - Thank You Letter rn - Antibiotic rn unit manager - Prescription Opioid Use rn - Patient Portal Instructions rn - Leadership Thank You Letter rn Prescriptions: - Macrobid 100 mg Oral Capsule - take 1 capsule by ORAL route every 12 hours for 7 days; 14 capsule; Refills: 0, ms3 Product Selection Permitted Signatures: Dispatcher [employer] EDMS Soto Hutchinson MD MD rn Sims, Marcus, DO DO ms3 Chapo Dominique RN RN as6 Renay Centeno RN RN ha1
--- NOTE | 2023-02-26 21:59 | ER ---
Nurse's Notes [facility] Name: Meghann Bob Age: 42 yrs Sex: Female : 1980 Arrival Date: 02/26/2023 Time: 20:04 Bed 6 Private MD: Diagnosis: UTI/ Urinary tract infection, site not specified;Dysuria Presentation: 02/26 20:40 Chief complaint: Patient states: "I think I have a UTI". Coronavirus screen: At this as6 time, the client does not indicate any symptoms associated with coronavirus-19. Ebola Screen: No symptoms or risks identified at this time. Initial Sepsis Screen: Does the patient meet any 2 criteria? No. Patient's initial sepsis screen is negative. Does the patient have a suspected source of infection? No. Patient's initial sepsis screen is negative. Risk Assessment: Do you want to hurt yourself or someone else? Patient reports no desire to harm self or others. Onset of symptoms was February 23, 2023. 20:40 Method Of Arrival: Ambulatory as6 20:40 Acuity: ANGELO 4 as6 Triage Assessment: 20:42 General: Appears in no apparent distress. Behavior is calm, cooperative. Pain: Denies as6 pain. : Reports burning with urination, inability to void, urinary frequency. Historical: - Allergies: 20:42 PENICILLINS; as6 - PMHx: 20:42 Hypertensive disorder; Migraines; as6 - PSHx: 20:42 Cholecystectomy; tubal ligation; as6 - Immunization history:: Client reports receiving the Melvin \\T\\ Melvin single-dose vaccine. - Social history:: Smoking status: Patient denies any tobacco usage or history of. Screenin:21 Abuse screen: Denies threats or abuse. Denies injuries from another. Nutritional ha1 screening: No deficits noted. Tuberculosis screening: No symptoms or risk factors identified. 22:22 [facility] ED Fall Risk Assessment (Adult) History of falling in the last 3 months, ha1 including since admission No falls in past 3 months (0 pts) Confusion or Disorientation No (0 pts) Intoxicated or Sedated No (0 pts) Impaired Gait No (0 pts) Mobility Assist Device Used No (0 pt) Altered Elimination No (0 pt) Score/Fall Risk Level 0 - 2 = Low Risk Oriented to surroundings, Maintained a safe environment, Educated pt \\T\\ family on fall prevention, incl call for assistance when getting out of bed. Assessment: 21:00 General: Appears comfortable, Behavior is calm, cooperative. Pain: Complains of pain in ha1 burning with urination. Neuro: Level of Consciousness is awake, alert, obeys commands, Oriented to person, place, time, situation. Cardiovascular: Patient's skin is warm and dry. Respiratory: Airway is patent Respiratory effort is even, unlabored, Respiratory pattern is regular, symmetrical. GI: Bowel sounds present X 4 quads. Abd is soft and non tender X 4 quads. : Reports burning with urination, urinary frequency. 22:00 Reassessment: Patient and/or family updated on plan of care and expected duration. Pain ha1 level reassessed. Patient is alert, oriented x 3, equal unlabored respirations, skin warm/dry/pink. Vital Signs: 20:40 BP 157 / 110; Pulse 77; Resp 18 S; Temp 98.6(TE); Pulse Ox 98% on R/A; Weight 80.74 kg as6 (R); Height 5 ft. 4 in. (R); Pain 0/10; 21:00 BP 150 / 98; Pulse 78; Resp 18 S; Pulse Ox 98% on R/A; ha1 22:00 BP 147 / 95; Pulse 75; Resp 17 S; Pulse Ox 98% on R/A; ha1 20:40 Body Mass Index 30.55 (80.74 kg, 162.56 cm) as6 20:40 Pain Scale: Adult as6 ED Course: 20:07 Patient arrived in ED. jj6 20:08 Mike Romero DO is Attending Physician. ms3 20:41 Chapo Dominique RN is Primary Nurse. as6 20:42 Triage completed. as6 20:42 Arm band placed on. as6 21:00 Patient has correct armband on for positive identification. Bed in low position. Call ha1 light in reach. Side rails up X 1. 21:00 Provided Education on: follow up . ha1 21:14 Attending Physician role handed off by Mike Romero DO ms3 21:14 Soto Hutchinson MD is Attending Physician. ms3 21:58 Roberto Guy MD is Referral Physician. rn 22:18 Urine Culture Sent. ha1 22:21 No provider procedures requiring assistance completed. Patient did not have IV access ha1 during this emergency room visit. Administered Medications: 22:12 Drug: Macrobid PO 100 mg Route: PO; ha1 22:23 Follow up: Response: No adverse reaction ha1 Medication: 22:21 VIS not applicable for this client. ha1 Outcome: 21:58 Discharge ordered by . rn 22:21 Discharged to home ambulatory, with family. ha1 22:21 Condition: stable 22:21 Discharge instructions given to patient, family, Instructed on discharge instructions, follow up and referral plans. medication usage, Demonstrated understanding of instructions, follow-up care, medications, Prescriptions given X 1. 22:22 Patient left the ED. ha1 Addendum: 03/02/2023 08:16 Addendum: Culture Results: Positive urine culture. No further action required. Bacteria h b sensitive to prescribed antibiotic. Signatures: Soto Hutchinson MD MD rn Baxter, Heather, RN RN hb Sims, Marcus, DO DO ms3 Meghann Kayj6 Chapo Dominique RN RN as6 Renay Centeno RN RN ha1
[2023-02-26] MEDS ORDERED: NITROFURAN MACRO 100 MG CAP PO ONE (22:27)
[2023-02-26 23:15] VITALS: TEMP 98.6; O2SAT 98
[2023-02-26 23:18] VITALS: BP 147/95
== END 2023-02-26 22:22 | disposition home or self-care (01) ==
LOC: ER 20:04
DX: N39.0 Urinary tract infection, site not specified (principal); Z88.0 Allergy status to penicillin
CPT/HCPCS: 81001; 87077; 87086; 87088; 87186; 99284

== ENCOUNTER → 2023-08-22 | Emergency (ER) | payer OTHER, SELFPAY ==
[2023-08-22 12:45] LABS: Urine Bacteria <20 /HPF (<20); Urine Bilirubin NEGATIVE (Negative); Urine Blood Negative (Negative); Urine Clarity Extremely Turbid (Clear); Urine Color Light-Yellow (Yellow); Urine Glucose NEGATIVE (Negative); Urine Mucus Slight /HPF (None Seen); Urine Protein NEGATIVE (Negative); Urine RBC <5 /HPF (None Seen); Urine Urobilinogen Normal (Normal)
--- NOTE | 2023-08-22 13:03 | EDPHYS ---
Physician Documentation [facility] Name: Meghann Cunha Age: 43 yrs Sex: Female : 1980 Arrival Date: 08/22/2023 Time: 11:47 Bed IW1 Private MD: ED Physician Mike Romero HPI: 08/21 13:02 This 43 yrs old Female presents to ER via Ambulatory with complaints of Back Pain. [facility] 13:02 43-year-old female with past medical history of hypertension, migraines presents [place] [facility] [place] for right-sided back pain that has been ongoing for 1 week. Patient states pain is 9/10. Patient denies alleviating or inciting factors. Patient denies numbness, weakness, urinary or bowel incontinence, fevers, chills. Historical: - Allergies: 12:21 PENICILLINS; aa5 - PMHx: 12:21 Hypertensive disorder; Migraines; aa5 - PSHx: 12:21 Cholecystectomy; tubal ligation; aa5 - Immunization history:: Adult Immunizations unknown. - Social history:: Smoking status: Patient denies any tobacco usage or history of. ROS: 13:02 Constitutional: Negative for fever, and chills. Cardiovascular: Negative for chest ms3 pain, and palpitations. Respiratory: Negative for shortness of breath, cough, wheezing, and pleuritic chest pain, Abdomen/GI: Negative for abdominal pain, nausea, vomiting, diarrhea, and constipation, 13:02 Back: Positive for Right back pain, 13:02 All other systems are negative, Exam: 13:02 Constitutional: This is a well developed, well nourished patient who is awake, alert, ms3 and in no acute distress. Head/Face: Normocephalic, atraumatic. Neck: Trachea midline, no cervical lymphadenopathy. Supple, full range of motion without nuchal rigidity, or vertebral point tenderness. No Meningismus. Chest/axilla: Normal chest wall appearance and motion. Nontender with no deformity. Cardiovascular: Regular rate and rhythm with a normal S1 and S2. No gallops, murmurs, or rubs. Normal PMI, no JVD. No pulse deficits. Respiratory: Lungs have equal breath sounds bilaterally, clear to auscultation and percussion. No rales, rhonchi or wheezes noted. No increased work of breathing, no retractions or nasal flaring. Abdomen/GI: Soft, non-tender, with normal bowel sounds. No distension or tympany. No guarding or rebound. No evidence of tenderness throughout. 13:02 Back: pain, that is moderate, of the right low back, vertebral tenderness, is not appreciated, muscle spasm, is appreciated in the right low back, Vital Signs: 12:22 BP 148 / 94; Pulse 80; Resp 18 S; Temp 98(TE); Pulse Ox 100% on R/A; Weight 85.73 kg aa5 (R); Height 5 ft. 6 in. (R); 12:22 Body Mass Index 30.51 (85.73 kg, 167.64 cm) aa5 MDM: 12:32 Patient medically screened. ms3 13:02 Differential diagnosis: Pyelonephritis ruptured disc, Muscle spasm. Data reviewed: ms3 vital signs, nurses notes, lab test result(s), and as a result, I will discharge patient. Counseling: I had a detailed discussion with the patient and/or guardian regarding the historical points, exam findings, and any diagnostic results supporting the discharge/admit diagnosis, lab results, the need for outpatient follow up, to return to the emergency department if symptoms worsen or persist or if there are any questions or concerns that arise at home. Special discussion: I discussed with the patient/guardian in detail that at this point there is no indication for admission to the hospital. It is understood, however, that if the symptoms persist or worsen the patient needs to return immediately for re-evaluation. ED course: Discussed urinalysis and physical exam findings with patient. Patient to follow-up with primary care physician in 2 to 3 days. Patient understands and agrees with plan. Questions were answered. Return precautions discussed include worsening symptoms, or any other concerns. On reevaluation patient is alert and oriented x 4, no apparent distress, nontoxic-appearing, ambulatory in the emergency department, speaking full sentences. 08/21 12:22 Order name: Urinalysis w/ reflexes; Complete Time: 12:56 ms3 Administered Medications: No medications were administered Disposition Summary: 08/22/23 13:02 Discharge Ordered Notes: Location: Home ms3 Condition: Stable ms3 Diagnosis - Low back pain ms3 Followup: ms3 - With: Jozef Nunez, DO - When: 2 - 3 days - Reason: Recheck today's complaints Discharge Instructions: - Discharge Summary Sheet ms3 - Acute Back Pain, Adult ms3 Forms: - Work release form hb - Medication Reconciliation Form ms3 - Thank You Letter ms3 - Antibiotic Education ms3 - Prescription Opioid Use ms3 - Patient Portal Instructions ms3 - Leadership Thank You Letter ms3 Prescriptions: - Ibuprofen 600 mg Oral Tablet - take 1 tablet ORAL route every 6 hours As needed take with food; 30 tablet; ms3 Refills: 0, Product Selection Permitted - Cyclobenzaprine 10 mg Oral Tablet - take 1 tablet ORAL route every 8 hours As needed; 30 tablet; Refills: 0, ms3 Product Selection Permitted Signatures: Dispatcher [employer] Veronica Marinelli RN RN aa5 Mike Romero, DO DO ms3
--- NOTE | 2023-08-22 13:03 | ER ---
Nurse's Notes [facility] Name: Meghann Cunha Age: 43 yrs Sex: Female : 1980 Arrival Date: 08/22/2023 Time: 11:47 Bed IW1 Private MD: Diagnosis: Low back pain Presentation: 08/21 12:22 Chief complaint: Patient states: right lower back pain since 1 week ago. Pt denies aa5 burning with urination. Coronavirus screen: At this time, the client does not indicate any symptoms associated with coronavirus-19. Ebola Screen: Patient denies travel to an Ebola-affected area in the 21 days before illness onset. Initial Sepsis Screen: Does the patient meet any 2 criteria? No. Patient's initial sepsis screen is negative. Does the patient have a suspected source of infection? No. Patient's initial sepsis screen is negative. Risk Assessment: Do you want to hurt yourself or someone else? Patient reports no desire to harm self or others. Onset of symptoms was August 2023. 12:22 Acuity: ANGELO 4 aa5 12:22 Method Of Arrival: Ambulatory aa5 Triage Assessment: 12:23 General: Appears comfortable, Behavior is calm, cooperative. Pain: Complains of pain in aa5 right low back. Neuro: Level of Consciousness is awake, alert, obeys commands, Oriented to person, place, time, situation. Respiratory: Airway is patent Respiratory effort is even, unlabored, Respiratory pattern is regular, symmetrical. Derm: Skin is pink, warm \T\ dry. Musculoskeletal: ambulatory with steady gait. Historical: - Allergies: 12:21 PENICILLINS; aa5 - PMHx: 12:21 Hypertensive disorder; Migraines; aa5 - PSHx: 12:21 Cholecystectomy; tubal ligation; aa5 - Immunization history:: Adult Immunizations unknown. - Social history:: Smoking status: Patient denies any tobacco usage or history of. Screenin:18 [facility] ED Fall Risk Assessment (Adult) History of falling in the last 3 months, hb including since admission No falls in past 3 months (0 pts) Confusion or Disorientation No (0 pts) Intoxicated or Sedated No (0 pts) Impaired Gait No (0 pts) Mobility Assist Device Used No (0 pt) Altered Elimination No (0 pt) Score/Fall Risk Level. Abuse screen: Denies threats or abuse. Denies injuries from another. Nutritional screening: No deficits noted. Tuberculosis screening: No symptoms or risk factors identified. Assessment: 13:18 General: Appears in no apparent distress. Behavior is calm, cooperative. Pain: Pain hb currently is 5 out of 10 on a pain scale. Neuro: Level of Consciousness is awake, alert, obeys commands, Oriented to person, place, time, situation. Cardiovascular: Patient's skin is warm and dry. Respiratory: Respiratory effort is even, unlabored, Respiratory pattern is regular, symmetrical. Musculoskeletal: Reports back pain. Vital Signs: 12:22 BP 148 / 94; Pulse 80; Resp 18 S; Temp 98(TE); Pulse Ox 100% on R/A; Weight 85.73 kg aa5 (R); Height 5 ft. 6 in. (R); 12:22 Body Mass Index 30.51 (85.73 kg, 167.64 cm) aa5 ED Course: 11:48 Patient arrived in ED. rg4 12:06 Mike Romero DO is Attending Physician. ms3 12:21 Arm band placed on. aa5 12:23 Triage completed. aa5 12:37 Urine collected: clean catch specimen, sent to lab. aa5 13:02 Jozef Nunez DO is Referral Physician. ms3 13:18 Patient has correct armband on for positive identification. Provided Education on: hb medications, follow up. 13:18 No provider procedures requiring assistance completed. Patient did not have IV access hb during this emergency room visit. Administered Medications: No medications were administered Medication: 13:18 VIS not applicable for this client. hb Outcome: 13:02 Discharge ordered by . ms3 13:18 Discharged to home ambulatory, hb 13:18 Condition: stable 13:18 Discharge instructions given to patient, Instructed on discharge instructions, follow up and referral plans. medication usage, Demonstrated understanding of instructions, follow-up care, medications, Prescriptions given X 2, 13:20 Patient left the ED. hb Signatures: Veronica Penny RN RN aa5 Radha Campbell RN RN hb Garcia, Rubi rg4 Mike Romero DO DO ms3 Corrections: (The following items were deleted from the chart) 12:37 12:37 Urine collected: clean catch specimen, aa5 aa5
[2023-08-22 14:03] VITALS: BP 148/94; TEMP 98; O2SAT 100
== END ==
LOC: ER 11:47
DX: M54.50 Low back pain, unspecified (principal)
CPT/HCPCS: 81001; 99283

== ENCOUNTER → 2023-08-27 | Emergency (ER) | payer SELFPAY ==
[~2023-08-27] MED LIST: KETOROLAC 30 MG/ML INJ ONE; dexAMETHasone 10 MG/ML VIAL ONE
[2023-08-27 18:26] LABS: Absolute Eosinophils 0.2 K/uL (0-0.5); Absolute Lymphocytes (CBC) 2.8 K/uL (0.7-4.9); Absolute Monocytes 0.6 K/uL (0.1-1.3); Absolute Neutrophil 5.1 K/uL (1.8-8.0); Basophils % 0.3 % (0-1.3); Eosinophils % 2.2 % (0-4.4); Hematocrit 40.6 % (36.0-45.0); Hemoglobin 13.8 g/dL (12.0-15.0); Lymphocytes % 31.8 % (15.3-44.8); MCH 30.4 pg (27.0-35.0); MCHC 33.9 g/dL (32.0-36.0); MCV 89.5 fL (80-100); Monocytes % 6.9 % (3.3-12.3); Neutrophils % 58.8 % (41.7-73.7); Nucleated Red Blood Cells % 0.2 % (0-0); Platelets 271 thou/uL (152-406); RBC Red Blood Cell Count 4.54 M/uL (3.86-4.86); Red Cell Distribution Width 14.6 % (12.1-15.2)
[2023-08-27 18:40] LABS: Specific Gravity 1.018 (1.005-1.030)
[2023-08-27 18:41] LABS: Specific Gravity 1.018 (1.005-1.030); Urine Bacteria <20 /HPF (<20); Urine Bilirubin NEGATIVE (Negative); Urine Blood Negative (Negative); Urine Clarity Turbid (Clear); Urine Color Yellow (Yellow); Urine Glucose NEGATIVE (Negative); Urine Mucus Slight /HPF (None Seen); Urine Protein NEGATIVE (Negative); Urine RBC <5 /HPF (None Seen); Urine Urobilinogen Normal (Normal)
[2023-08-27 18:43] LABS: Albumin 3.8 g/dL (3.4-5.0); Bilirubin Total 0.2 mg/dL (0.2-1.0); Globulin 3.8 g/dL (2.3-3.5); Protein, Total 7.6 g/dL (6.4-8.2)
--- NOTE | 2023-08-27 20:55 | RAD REPORT ---
EXAM DESCRIPTION: CT - Stone Protocol - 08/27/2023 8:11 pm CLINICAL HISTORY: FLANK PAIN COMPARISON: Abdomen Pelvis W Contrast dated 11/17/2021; Abdomen Pelvis W Contrast dated 09/28/2020; Abdomen Pelvis W Contrast dated 09/17/2018 TECHNIQUE: Thin cut axial CT imaging of the abdomen and pelvis was performed without IV contrast. Mu ltiplanar reformats were generated and reviewed. All CT scans are performed using dose optimization technique as appropriate and may include automated exposure control or mA/KV adjustment according to patient size. FINDINGS: No suspicious findings in the lung bases. The liver, spleen, adrenal glands, and pancreas show no suspicious findings. Gallbladder was surgical ly removed. Symmetric renal contour, without suspicious parenchymal findings within limits of noncontrast techniq ue. No hydroureteronephrosis. Upper and lower pole calculi within the left renal pelvis largest measu ring 3 mm. No dilated bowel loops or bowel wall thickening. No free air, free fluid or inflammatory stranding. N o hernia, mass or bulky lymphadenopathy. Dominant fibroid measuring 6.2 x 4.8 cm along the posterior uterine wall. Ill-defined endometrial cavity fluid versus endometrial prominence. The urinary bladder is without significant finding. No suspicious bony findings. IMPRESSION: Nonobstructing left renal calculi up to 3 mm in greatest size. Posterior wall uterine fibroid. Status post cholecystectomy.
--- NOTE | 2023-08-27 21:16 | EDPHYS ---
Physician Documentation [facility] Name: Meghann Cunha Age: 43 yrs Sex: Female : 1980 Arrival Date: 08/27/2023 Time: 16:35 Bed DX1 Private MD: ED Physician Yang Locke HPI: 08/26 17:30 This 43 yrs old Female presents to ER via Ambulatory with complaints of Back Pain. cp 17:30 The patient presents with pain that is acute. cp 17:30 The symptoms are located in the right mid and lower back. cp 17:30 Onset: The symptoms/episode began/occurred 3. cp 17:30 The pain does not radiate. Associated signs and symptoms: Pertinent negatives: cp abdominal pain, constipation, fever, hematuria, incontinence, numbness, urinary retention, weakness. The problem was sustained from unknown cause. The patient has been recently seen at the [facility] Emergency Department, last week, for similar complaints prescribed Ibuprofen and Flexeril w/o relief. Historical: - Allergies: 16:54 PENICILLINS; ll1 - PMHx: 16:54 Hypertensive disorder; Migraines; ll1 - PSHx: 16:54 Cholecystectomy; tubal ligation; ll1 - Immunization history:: Adult Immunizations up to date. - Social history:: Smoking status: Patient denies any tobacco usage or history of. ROS: 17:35 Constitutional: Negative for body aches, chills, fever, poor PO intake, cp 17:35 Eyes: Negative for injury, pain, redness, and discharge, cp 17:35 ENT: Negative for drainage from ear(s), ear pain, sore throat, difficulty swallowing, difficulty handling secretions, 17:35 Cardiovascular: Negative for chest pain, edema, palpitations, 17:35 Respiratory: Negative for cough, shortness of breath, wheezing, 17:35 Abdomen/GI: Negative for abdominal pain, nausea, vomiting, and diarrhea, constipation, bowel incontinence, 17:35 Back: Positive for pain at rest, pain with movement, flank pain, on the right, of the right mid and right low back, 17:35 : Negative for urinary symptoms, difficulty urinating, bladder incontinence, 17:35 Neuro: Negative for numbness, tingling, weakness, 17:35 All other systems are negative, Exam: 17:40 Constitutional: The patient appears in no acute distress, alert, awake, non-toxic, well cp developed, well nourished, overweight 17:40 Head/Face: Normocephalic, atraumatic. cp 17:40 Eyes: Periorbital structures: appear normal, Conjunctiva: normal, no exudate, no injection, Sclera: no appreciated abnormality, Lids and lashes: appear normal, bilaterally, 17:40 ENT: External ear(s): are unremarkable, Nose: is normal, Mouth: Lips: moist, Oral mucosa: pink and intact, moist, Posterior pharynx: Airway: no evidence of obstruction, patent, 17:40 Chest/axilla: Inspection: normal, 17:40 Cardiovascular: Rate: normal, Rhythm: regular, 17:40 Respiratory: the patient does not display signs of respiratory distress, Respirations: normal, no use of accessory muscles, no retractions, labored breathing, is not present, Breath sounds: are clear throughout, no decreased breath sounds, no stridor, no wheezing, 17:40 Abdomen/GI: Inspection: abdomen appears normal, Palpation: abdomen is soft and non-tender, in all quadrants, 17:40 Back: pain, that is moderate, of the right mid back and right low back, ROM is painful, with all movement, 17:40 Neuro: Orientation: to person, place \T\ time. Mentation: is normal, Motor: moves all fours, strength is normal, Sensation: is normal, Gait: is steady, at a normal pace, without difficulty, Vital Signs: 16:58 BP 146 / 94; Pulse 87; Resp 16; Temp 97.2; Pulse Ox 100% ; Weight 90.72 kg; Height 5 ll1 ft. 6 in. ; Pain 9/10; 21:29 BP 143 / 91; Pulse 77; Resp 14; Temp 97.4; Pulse Ox 99% on R/A; Weight 90.72 kg; Height ty 5 ft. 6 in. ; Pain 0/10; 21:29 Body Mass Index 32.28 (90.72 kg, 167.64 cm) ty 16:58 Pain Scale: Adult ll1 21:29 Pain Scale: Adult ty MDM: 17:01 Patient medically screened. cp 18:00 Differential diagnosis: Cholelithiasis Pyelonephritis ruptured disc, sprain, cp Ureterolithiasis. 21:15 Data reviewed: vital signs, nurses notes, lab test result(s), radiologic studies, CT cp scan. 21:15 I considered the following discharge prescriptions or medication management in the cp emergency department Medications were administered in the Emergency Department. See MAR. Counseling: I had a detailed discussion with the patient and/or guardian regarding the historical points, exam findings, and any diagnostic results supporting the discharge/admit diagnosis, lab results, radiology results, the need for outpatient follow up, a family practitioner, to return to the emergency department if symptoms worsen or persist or if there are any questions or concerns that arise at home. Response to treatment: the patient's symptoms have markedly improved after treatment, and as a result, I will discharge patient. 08/26 17:13 Order name: CBC with Diff; Complete Time: 19:24 cp 08/26 19:24 Interpretation: Normal except: MPV 7.0. cp 08/26 17:13 Order name: CMP; Complete Time: 19:24 cp 08/26 17:13 Order name: Lipase; Complete Time: 19:24 cp 08/26 17:13 Order name: Test, Urine; Complete Time: 19:24 cp 08/26 17:13 Order name: Urinalysis w/ reflexes; Complete Time: 19:24 cp 08/26 19:25 Order name: CT Stone Protocol; Complete Time: 21:07 cp 08/26 17:13 Order name: IV Saline Lock; Complete Time: 18:19 cp 08/26 17:13 Order name: Labs collected and sent; Complete Time: 18:19 cp Administered Medications: 19:24 Drug: Decadron - Dexamethasone IVP 10 mg IVP once Route: IVP; Site: left antecubital; jb4 19:24 Drug: Ketorolac IVP 15 mg IVP once Route: IVP; Site: left antecubital; jb4 19:24 Drug: Methocarbamol IVPB 1 grams IVPB once over 1 hrs; (mix in NS 100 mL) Route: IVPB; jb4 Infused Over: 1 hrs; Site: left antecubital; Disposition Summary: 08/27/23 21:16 Discharge Ordered Notes: Location: Home cp Problem: an ongoing problem cp Symptoms: have improved cp Condition: Stable cp Diagnosis - Low back pain cp Followup: cp - With: Private Physician - When: 2 - 3 days - Reason: Recheck today's complaints Discharge Instructions: - Discharge Summary Sheet cp - Acute Back Pain, Adult cp - Heat Therapy cp - Back Exercises cp - Form - Excuse from Work, School, or Physical Activity cp Forms: - Medication Reconciliation Form cp - Thank You Letter cp - Antibiotic Education cp - Prescription Opioid Use cp - Patient Portal Instructions cp - Leadership Thank You Letter cp Prescriptions: - Diclofenac Sodium 75 mg Oral Tablet Sustained Release - take 1 tablet ORAL route 2 times per day; 30 tablet; Refills: 0, Product cp Selection Permitted - Medrol (Ambrosio) 4 mg Oral Tablets, Dose Pack - take 1 tablet ORAL route as directed - follow package instructions; 1 packet; cp Refills: 0, Product Selection Permitted - methocarbamol 750 mg Oral tablet - take 1 tablet ORAL route every 8 hours; 30 tablet; Refills: 0, Product cp Selection Permitted Signatures: Dispatcher [employer] EDDread Vasques PA PA cp Bryson, James RN RN jb4 Dianne Thompson RN RN ll1
--- NOTE | 2023-08-27 21:16 | ER ---
Nurse's Notes [facility] Name: Meghann Cunha Age: 43 yrs Sex: Female : 1980 Arrival Date: 08/27/2023 Time: 16:35 Bed DX1 Private MD: Diagnosis: Low back pain Presentation: 08/26 16:58 Chief complaint: Patient states: R lower back since 08/19. Seen here for the same, ll1 Flexeril and ibuprofen don't help. Coronavirus screen: Client denies travel out of the [place] in the last 14 days. At this time, the client does not indicate any symptoms associated with coronavirus-19. Ebola Screen: Patient denies travel to an Ebola-affected area in the 21 days before illness onset. Initial Sepsis Screen: Does the patient meet any 2 criteria? No. Patient's initial sepsis screen is negative. Does the patient have a suspected source of infection? No. Patient's initial sepsis screen is negative. Risk Assessment: Do you want to hurt yourself or someone else? Patient reports no desire to harm self or others. Onset of symptoms was August 19, 2023. 16:58 Method Of Arrival: Ambulatory ll1 16:58 Acuity: ANGELO 4 ll1 Triage Assessment: 16:59 General: Appears uncomfortable, Behavior is calm, cooperative, appropriate for age. ll1 Pain: Complains of pain in R lower back Quality of pain is described as aching. Musculoskeletal: Circulation, motion, and sensation intact. Capillary refill < 3 seconds, Reports pain in R lower back. Historical: - Allergies: 16:54 PENICILLINS; ll1 - PMHx: 16:54 Hypertensive disorder; Migraines; ll1 - PSHx: 16:54 Cholecystectomy; tubal ligation; ll1 - Immunization history:: Adult Immunizations up to date. - Social history:: Smoking status: Patient denies any tobacco usage or history of. Screenin:45 [facility] ED Fall Risk Assessment (Adult) History of falling in the last 3 months, jb4 including since admission No falls in past 3 months (0 pts) Confusion or Disorientation No (0 pts) Intoxicated or Sedated No (0 pts) Impaired Gait No (0 pts) Mobility Assist Device Used No (0 pt) Altered Elimination No (0 pt) Score/Fall Risk Level 0 - 2 = Low Risk Oriented to surroundings, Maintained a safe environment. 19:45 Abuse screen: Denies threats or abuse. Nutritional screening: No deficits noted. jb4 Tuberculosis screening: No symptoms or risk factors identified. Assessment: 19:45 General: Appears in no apparent distress. uncomfortable, Behavior is calm, cooperative, jb4 appropriate for age. Pain: Complains of pain in back Pain does not radiate. Pain currently is 9 out of 10 on a pain scale. Neuro: Level of Consciousness is awake, alert, obeys commands, Oriented to person, place, time, situation. Cardiovascular: Patient's skin is warm and dry. Respiratory: Airway is patent Respiratory effort is even, unlabored, Respiratory pattern is regular, symmetrical. GI: No signs and/or symptoms were reported involving the gastrointestinal system. : No signs and/or symptoms were reported regarding the genitourinary system. EENT: No signs and/or symptoms were reported regarding the EENT system. Derm: Skin is intact, Skin is pink, warm \T\ dry. Musculoskeletal: Circulation, motion, and sensation intact. Range of motion: intact in all extremities. 21:00 Reassessment: Patient appears in no apparent distress at this time. Patient and/or jb4 family updated on plan of care and expected duration. Pain level reassessed. Patient is alert, oriented x 3, equal unlabored respirations, skin warm/dry/pink. Patient denies pain at this time. Patient states feeling better. Vital Signs: 16:58 BP 146 / 94; Pulse 87; Resp 16; Temp 97.2; Pulse Ox 100% ; Weight 90.72 kg; Height 5 ll1 ft. 6 in. ; Pain 9/10; 21:29 BP 143 / 91; Pulse 77; Resp 14; Temp 97.4; Pulse Ox 99% on R/A; Weight 90.72 kg; Height ty 5 ft. 6 in. ; Pain 0/10; 21:29 Body Mass Index 32.28 (90.72 kg, 167.64 cm) ty 16:58 Pain Scale: Adult ll1 21:29 Pain Scale: Adult ty ED Course: 16:39 Patient arrived in ED. ae5 16:40 Dread Mtz PA is PHCP. cp 16:40 Yang Locke MD is Attending Physician. cp 16:54 Arm band placed on. ll1 16:59 Triage completed. ll1 18:18 Initial lab(s) drawn, by me, sent to lab. Inserted saline lock: 22 gauge in left ap3 antecubital area, using aseptic technique. Blood collected. 19:45 Patient has correct armband on for positive identification. Provided Education on: jb4 Educated on Medications ordered, intended effect, and wait time.. 20:[address] via wheelchair. jb4 20:13 CT Stone Protocol In Process Unspecified. EDMS 21:30 IV discontinued, intact, bleeding controlled, No redness/swelling at site. Pressure ty dressing applied. 21:30 No provider procedures requiring assistance completed. jb4 Administered Medications: 19:24 Drug: Decadron - Dexamethasone IVP 10 mg IVP once Route: IVP; Site: left antecubital; jb4 19:24 Drug: Ketorolac IVP 15 mg IVP once Route: IVP; Site: left antecubital; jb4 19:24 Drug: Methocarbamol IVPB 1 grams IVPB once over 1 hrs; (mix in NS 100 mL) Route: IVPB; jb4 Infused Over: 1 hrs; Site: left antecubital; Medication: 21:00 VIS not applicable for this client. jb4 Outcome: 21:16 Discharge ordered by . cp 21:30 Discharged to home ambulatory, with family, jb4 21:30 Condition: stable 21:30 Discharge instructions given to patient, Instructed on discharge instructions, follow up and referral plans. no drinking with medication, no driving heavy equipment, medication usage, Demonstrated understanding of instructions, follow-up care, medications, Prescriptions given X 3, 22:02 Patient left the ED. jb4 Signatures: Dispatcher [employer] EDMD Dread Mtz PA PA cp Bryson, James RN RN jb4 Meliza Pappas RN RN ap3 Dianne Thompson RN RN ll1 Palak Vinson Tylor ty
[2023-08-27 22:40] VITALS: BP 143/91; TEMP 97.4; O2SAT 99
== END ==
LOC: ER 16:35
DX: M54.50 Low back pain, unspecified (principal); Z88.0 Allergy status to penicillin
CPT/HCPCS: 36415; 74176; 76377; 80053; 81001; 81025; 83690; 85025; J1100; J2800

== ENCOUNTER 2023-11-12 10:29 | Emergency (ER) | payer SELFPAY ==
[2023-11-12 11:50] LABS: Specific Gravity 1.015 (1.005-1.030)
[2023-11-12 11:58] LABS: Specific Gravity 1.015 (1.005-1.030); Sqamous Epithelial <5 /HPF (None Seen); Urine Bacteria 20-50 /HPF (<20); Urine Bilirubin NEGATIVE (Negative); Urine Blood 2+ (Negative); Urine Clarity Extremely Turbid (Clear); Urine Color Light-Yellow (Yellow); Urine Culture Reflex Order REFLEXED; Urine Glucose NEGATIVE (Negative); Urine Ketones NEGATIVE (Negative); Urine Microscopic Reflex YN ORDER UMIC; Urine Mucus Slight /HPF (None Seen); Urine Nitrite NEGATIVE (Negative); Urine Protein 2+ (Negative); Urine RBC 21-50 /HPF (None Seen); Urine Urobilinogen Normal (Normal); Urine WBC >50 /HPF (<5); Urine WBC Clump Rare /HPF (None Seen)
--- NOTE | 2023-11-12 12:52 | ER ---
Nurse's Notes [facility] Name: Meghann Cunha Age: 43 yrs Sex: Female : 1980 Arrival Date: 11/12/2023 Time: 10:29 Bed 12 Private MD: Diagnosis: UTI/ Urinary tract infection, site not specified Presentation: 11/11 10:43 Chief complaint: Patient states: RIGHT FLANK PAIN AND PRESSURE WITH URINATION X 3 iw WEEKS. Coronavirus screen: Client denies travel out of the [place] in the last 14 days. At this time, the client does not indicate any symptoms associated with coronavirus-19. Ebola Screen: Patient negative for fever greater than or equal to 101.5 degrees Fahrenheit, and additional compatible Ebola Virus Disease symptoms Patient denies exposure to infectious person. Patient denies travel to an Ebola-affected area in the 21 days before illness onset. No symptoms or risks identified at this time. Initial Sepsis Screen: Does the patient meet any 2 criteria? No. Patient's initial sepsis screen is negative. Does the patient have a suspected source of infection? No. Patient's initial sepsis screen is negative. Risk Assessment: Do you want to hurt yourself or someone else? Patient reports no desire to harm self or others. Onset of symptoms was November 12, 2023. 10:43 Method Of Arrival: Ambulatory iw 10:43 Acuity: ANGELO 3 iw Triage Assessment: 10:44 General: Appears in no apparent distress. comfortable, Behavior is calm, cooperative. iw Pain: Complains of pain in back. Neuro: Level of Consciousness is awake, alert, obeys commands, Oriented to person, place, time, situation. Respiratory: Airway is patent Respiratory effort is even, unlabored, Respiratory pattern is regular, symmetrical. : Reports PRESSURE WITH URINATION. 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 - Infectious Disease History:: Denies. - Social history:: Smoking status: Patient denies any tobacco usage or history of. - Family history:: not pertinent. - Hospitalizations: : No recent hospitalization is reported. Screenin:48 [facility] ED Fall Risk Assessment (Adult) History of falling in the last 3 months, iw including since admission No falls in past 3 months (0 pts) Confusion or Disorientation No (0 pts) Intoxicated or Sedated No (0 pts) Impaired Gait No (0 pts) Mobility Assist Device Used No (0 pt) Altered Elimination No (0 pt) Score/Fall Risk Level 0 - 2 = Low Risk. Abuse screen: Denies threats or abuse. Denies injuries from another. Nutritional screening: No deficits noted. Tuberculosis screening: No symptoms or risk factors identified. Assessment: 11:47 General: Appears in no apparent distress. Behavior is calm, cooperative. Pain: iw Complains of pain in posterior aspect of right lateral abdomen, anterior aspect of right lateral abdomen, right upper quadrant and right lower quadrant. Neuro: Level of Consciousness is awake, alert, obeys commands, Oriented to person, place, time, situation, Moves all extremities. Full function. Cardiovascular: Patient's skin is warm and dry. Respiratory: Respiratory effort is even, unlabored, Respiratory pattern is regular, symmetrical. : Reports pain in right flank(s). Derm: Skin is intact, is healthy with good turgor. Musculoskeletal: Range of motion: intact in all extremities. Vital Signs: 10:43 BP 145 / 119; Pulse 87; Resp 16; Temp 97.8; Pulse Ox 95% on R/A; iw 10:45 Weight 92.99 kg; Height 5 ft. 4 in. ; iw 10:47 BP 145 / 100; iw 10:45 Body Mass Index 35.19 (92.99 kg, 162.56 cm) iw 10:47 VITALS RECHECK iw ED Course: 10:34 Patient arrived in ED. mg5 10:40 Soto Hutchinson MD is Attending Physician. rn 10:44 Triage completed. iw 10:44 Arm band placed on. iw 11:47 Bridget Pop RN is Primary Nurse. iw 11:48 No provider procedures requiring assistance completed. iw Administered Medications: 13:22 Drug: Ciprofloxacin PO 500 mg PO once Route: PO; iw 13:30 Follow up: Response: No adverse reaction iw Outcome: 12:52 Discharge ordered by . rn 13:23 Patient left the ED. iw Signatures: Bridget Pop RN RN iw Nieto, Roman, MD MD rn Gardner, Lottie mg5
--- NOTE | 2023-11-12 12:52 | EDPHYS ---
Physician Documentation [facility] [place] Name: Meghann Cunha Age: 43 yrs Sex: Female : 1980 Arrival Date: 11/12/2023 Time: : Bed 12 Private MD: ED Physician Soto Hutchinson HPI: 11/11 11:15 This 43 yrs old Female presents to ER via Ambulatory with complaints of Urinary Problem.rn 11:15 The patient presents with urinary symptoms, dysuria, frequency. Onset: The rn symptoms/episode began/occurred 3 week(s) ago. Modifying factors: The symptoms are alleviated by nothing, the symptoms are aggravated by urinating. Severity of symptoms: At their worst the symptoms were mild, in the emergency department the symptoms are unchanged. The patient has experienced similar episodes in the past. Patient reports 3 weeks of intermittent dysuria and increased urinary frequency. No hematuria. Reports mild lower back pain. No trauma. No fever or chills. Patient reports frequent UTIs and this feels like it. No history of kidney stones.. 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 - Infectious Disease History:: Denies. - Social history:: Smoking status: Patient denies any tobacco usage or history of. - Family history:: not pertinent. - Hospitalizations: : No recent hospitalization is reported. ROS: 11:15 Constitutional: Negative for fever, chills, and weight loss, Cardiovascular: Negative rn for chest pain, palpitations, and edema, Respiratory: Negative for shortness of breath, cough, wheezing, and pleuritic chest pain, Abdomen/GI: Negative for abdominal pain, nausea, vomiting, diarrhea, and constipation, Back: Positive for lower back pain : Positive for increased urinary frequency and dysuria MS/Extremity: Negative for injury and deformity, Neuro: Negative for headache, weakness, numbness, tingling, and seizure, Exam: 11:15 Constitutional: This is a well developed, well nourished patient who is awake, alert, rn and in no acute distress. Ambulatory to triage without assistance. Cardiovascular: Regular rate and rhythm. No pulse deficits. Respiratory: No increased work of breathing, no retractions or nasal flaring. Abdomen/GI: Soft, non-tender Back: No spinal tenderness. No costovertebral tenderness. Full range of motion. Vital Signs: 10:43 BP 145 / 119; Pulse 87; Resp 16; Temp 97.8; Pulse Ox 95% on R/A; iw 10:45 Weight 92.99 kg; Height 5 ft. 4 in. ; iw 10:47 BP 145 / 100; iw 10:45 Body Mass Index 35.19 (92.99 kg, 162.56 cm) iw 10:47 VITALS RECHECK iw MDM: 10:40 Patient medically screened. rn 12:49 Differential diagnosis: urinary tract infection. Data reviewed: vital signs, nurses rn notes, lab test result(s), and as a result, I will discharge patient. Counseling: I had a detailed discussion with the patient and/or guardian regarding the historical points, exam findings, and any diagnostic results supporting the discharge/admit diagnosis, lab results, the need for outpatient follow up, to return to the emergency department if symptoms worsen or persist or if there are any questions or concerns that arise at home. Special discussion: I discussed with the patient/guardian in detail that at this point there is no indication for admission to the hospital. It is understood, however, that if the symptoms persist or worsen the patient needs to return immediately for re-evaluation. 11/11 10:46 Order name: Test, Urine; Complete Time: 12:01 rn 11/11 10:46 Order name: Urinalysis w/ reflexes; Complete Time: 12:01 rn 11/11 12:03 Order name: Urine Culture EDMS Administered Medications: 13:22 Drug: Ciprofloxacin PO 500 mg PO once Route: PO; iw 13:30 Follow up: Response: No adverse reaction iw Disposition Summary: 11/12/23 12:52 Discharge Ordered Notes: Location: Home rn Problem: new rn Symptoms: have improved rn Condition: Stable rn Diagnosis - UTI/ Urinary tract infection, site not specified rn Followup: rn - With: Private Physician - When: As needed - Reason: Recheck today's complaints, Re-evaluation by your physician Discharge Instructions: - Discharge Summary Sheet rn - Urinary Tract Infection, Adult rn Forms: - Medication Reconciliation Form rn - Antibiotic med surg rn - Prescription Opioid Use rn - Patient Portal Instructions rn - Leadership Thank You Letter rn Prescriptions: - Cipro 500 mg Oral Tablet - take 1 tablet ORAL route every 12 hours for 7 days; 14 tablet; Refills: 0, rn Product Selection Permitted Signatures: Dispatcher [employer] Bridget Blount, RN RN Soto Medrano MD MD rn
[2023-11-12] MEDS ORDERED: CIPROFLOXACIN HCL 500 MG TAB ONE (13:13)
[2023-11-12 13:49] VITALS: BP 145/100; TEMP 97.8; O2SAT 95
== END 2023-11-12 13:23 | disposition home or self-care (01) ==
LOC: ER 10:29
DX: N39.0 Urinary tract infection, site not specified (principal)
CPT/HCPCS: 81001; 81025; 87077; 87086; 87088; 87186; 99282